=== PATIENT | male | born 1965 | race Two or more races ===

== ENCOUNTER 2020-12-09 08:05 | Outpatient (REF) | payer OTHER, SELFPAY ==
[2020-12-09 08:31] LABS: Hematocrit 46.3 % (42-52); Hemoglobin 15.2 g/dl (14.0-18.0); Mean Corpuscular HGB Conc 32.8 g/dl (31.0-36.0); Mean Corpuscular Hemoglobin 26.9 pg (27.0-33.0); Mean Corpuscular Volume 81.8 fL (80-98); Platelet Count 351 X10*3/uL (160-400); Red Blood Count 5.66 X10*6/uL (4.60-5.80); Red Cell Distribution Width 14.6 % (11.0-16.0); White Blood Count 7.7 X10*3/uL (4.8-10.8)
[2020-12-09 08:38] LABS: Estimated Average Glucose 126 mg/dL
[2020-12-09 09:31] LABS: Alanine Aminotransferase 39 U/L (0-40); Alkaline Phosphatase 76 U/L (39-117); Anion Gap 11 (12-20); Aspartate Amino Transferase 23 U/L (5-37); Bilirubin Total 0.7 mg/dL (0.0-1.0); Blood Urea Nitrogen 12 mg/dL (9-16); Carbon Dioxide 25 mmol/L (22-29); Chloride 105 mmol/L (96-108); Cholesterol 110 mg/dL; Estimated Glomerular Filt Rate > 60; Glucose Random 107 mg/dL (60-115); HDL Cholesterol 45 mg/dL; LDL Cholesterol Calculated 56 mg/dl; Potassium 4.2 mmol/L (3.3-5.1); Sodium 137 mmol/L (135-145); Total Protein 7.3 g/dL (6.5-8.0); Triglycerides 48 mg/dL
[2020-12-09 09:54] LABS: Thyroid Stimulating Hormone 2.42 uIU/mL (0.32-4.0)
[2020-12-09 10:26] LABS: T4 Thyroxine 6.3 ug/dL (4.5-12.0)
[2020-12-10 14:45] LABS: Triiodothyronine T3 Total 112 ng/dL (76-181)
== END 2020-12-09 08:06 | disposition home or self-care (01) ==
LOC: HO.LAB 08:05
PROVIDERS: PCP Family Medicine; Visit Provider Family Medicine
DX: E66.9 Obesity, unspecified (principal)
CPT/HCPCS: 36415; 80053; 80061; 82043; 83036; 84436; 84443; 84480; 85027

== ENCOUNTER 2021-12-15 08:08 | Outpatient (REF) | payer OTHER, SELFPAY ==
[2021-12-15 08:31] LABS: MANUAL DIFF FLAG NO
[2021-12-15 09:01] LABS: Basophils Absolute Auto 0.1 X10*3/uL (0.0-0.2); Eosinophils Absolute Auto 0.2 X10*3/uL (0.0-0.4); Eosinophils Percent Auto 3.1 % (0-4); Hematocrit 45.9 % (42.0-52.0); Hemoglobin 14.4 g/dl (14.0-18.0); Imm Gran Abs Auto 0.02 X10*3/uL (0.00-0.03); Imm Gran Pct Auto 0.3 % (0.0-0.4); Lymphocytes Absolute Auto 2.5 X10*3/uL (1.2-4.9); Lymphocytes Percent Auto 37.4 % (20-40); Mean Corpuscular HGB Conc 31.4 g/dl (31.0-36.0); Mean Corpuscular Volume 82.9 fL (80.0-98.0); Mean Platelet Volume 10.5 fL (9.4-12.4); Monocytes Absolute Auto 0.8 X10*3/uL (0.1-1.2); Monocytes Percent Auto 11.5 % (2-11); Neutrophils Absolute Auto 3.2 x10*3/uL (2.0-8.3); Neutrophils Percent Auto 46.7 % (45-73); Platelet Count 334 X10*3/uL (160-400); Red Blood Count 5.54 X10*6/uL (4.60-5.80); Red Cell Distribution Width 14.3 % (11.0-16.0); White Blood Count 6.8 X10*3/uL (4.8-10.8)
[2021-12-15 09:07] LABS: Estimated Average Glucose 126 mg/dL; Hemoglobin A1C 148.8163 umol/L
[2021-12-15 09:30] LABS: Alanine Aminotransferase 44 U/L (0-40); Albumin Level 4.1 g/dL (3.5-5.0); Alkaline Phosphatase 80 U/L (39-117); Anion Gap 12 (12-20); Aspartate Amino Transferase 25 U/L (5-37); Bilirubin Total 0.6 mg/dL (0.0-1.0); Blood Urea Nitrogen 10 mg/dL (9-16); Calcium 9.9 mg/dL (8.4-10.2); Carbon Dioxide 26 mmol/L (22-29); Chloride 108 mmol/L (96-108); Cholesterol 108 mg/dL; Estimated Glomerular Filt Rate > 60; Glucose Random 102 mg/dL (60-115); HDL Cholesterol 47 mg/dL; LDL Cholesterol Calculated 54 mg/dl; Potassium 4.4 mmol/L (3.3-5.1); Sodium 142 mmol/L (135-145); Total Protein 7.1 g/dL (6.5-8.0); Triglycerides 36 mg/dL
[2021-12-15 09:51] LABS: Thyroid Stimulating Hormone 2.21 uIU/mL (0.32-4.0)
[2021-12-15 10:21] LABS: Vitamin D 25-OH Total 33.3 ng/mL (>30)
== END 2021-12-15 08:09 | disposition home or self-care (01) ==
LOC: HO.LAB 08:08
PROVIDERS: PCP Family Medicine; Visit Provider Family Medicine
DX: E66.09 Other obesity due to excess calories (principal)
CPT/HCPCS: 36415; 80053; 80061; 82306; 83036; 84443; 85025

== ENCOUNTER 2022-02-21 12:11 | Emergency (ER) | payer OTHER, SELFPAY ==
--- NOTE | ~2022-02-21 | XR_ITS ---
EXAMINATION: XR SOFT TISSUE NECK CLINICAL INDICATION: Throat pain COMPARISON: None TECHNIQUE: 2 views of the soft tissue neck were obtained. FINDINGS: Soft tissue films of the neck demonstrate a normal larynx, pharynx and upper trachea. No soft tissue swelling or opaque foreign body is demonstrated. XR/XR soft tissue neck IMPRESSION: Unremarkable soft tissue neck examination.
[2022-02-21 14:18] VITALS: BP 126/95; PULSE 91; RESP 18; TEMP 36.6; O2SAT 98; BMI 31.8
--- NOTE | 2022-02-21 14:26 | ED.GENADULT ---
HPI - General Adult General Source: patient <LLOYD Myers - Last Filed: 02/21/22 16:09> Mode of arrival: ambulatory <LLOYD Myers - Last Filed: 02/21/22 16:09> Limitations: no limitations <LLOYD Myers - Last Filed: 02/21/22 16:09> History of Present Illness HPI narrative: 56 years old male is here today complained of upper back and bilateral neck pain. Patient states that pain started yesterday. Patient does not remember sustaining any injury. She has taking ibuprofen for pain however he states that it is not helpful. Patient states that he was unable to sleep at night due to pain. Patient reports he has some nasal congestion which has resolved. Otherwise he denies any headaches, dizziness, recent falls or trauma, changes in vision, sore throat, trouble swallowing or breathing, chest pain or shortness of breath, paresthesias, palpitations, focal weakness or any general weakness, nausea/vomiting/diarrhea constipation, black or bloody stools, abdominal pain, back pain, flank pain, dysuria, hematuria, abnormal penile discharge, urinary bowel incontinence or retention, saddle anesthesias, history of cancer, history of IV drug use, recent travel or sick contacts or any other symptoms complaints or concerns at this time. <LLOYD Myers - Last Filed: 02/21/22 16:09> MD complaint: Neck pain and upper back pain <LLOYD Myers - Last Filed: 02/21/22 16:09> Onset (ago): day(s) (Since yesterday) <LLOYD Myers - Last Filed: 02/21/22 16:09> Related Data Home medications: Previous Rx's Medication Instructions Recorded cyclobenzaprine 10 mg tablet 10 mg PO Q8H #14 tabs 02/21/22 ketorolac 10 mg tablet 10 mg PO Q8H #14 tabs 02/21/22 oxycodone 5 mg tablet 5 mg PO Q6H PRN pain #14 tabs 02/21/22 <ROQUE Sarmiento - Last Filed: 02/27/22 20:41> Allergies/adverse reactions: Allergies Allergy/AdvReac Type Severity Reaction Status Date / Time No Known Allergies Allergy Verified 08/31/21 09:38 none Allergy Unknown Unknown Uncoded 08/31/21 09:38 <ROQUE Sarmiento - Last Filed: 02/27/22 20:41> Review of Systems Review of Systems: Constitutional : No trauma, No Weight loss, No Fever, No Chills, ENT/Mouth : No Hearing loss, No Ear Pain, No Nasal Congestion, No Sinus Pain, No Hoarseness, No sore throat, No Rhinorrhea, No Swallowing Difficulty Cardiovascular : No Chest Pain, No SOB Respiratory : No Cough, No Dyspnea Gastrointestinal : No Nausea, No Vomiting, No Diarrhea, No abdominal Pain, No Hematochezia, No Melena Genitourinary : No Dysuria, No Urinary Frequency, No Hematuria, No Urinary or Bowel Incontinence/retention Musculoskeletal : + Neck pain, + Back pain, No joint stiffness, No joint swelling Skin : No Skin Lesions, No rash or signs of infection Neuro : nO Tingling to b/l arms/legs, No Weakness, No radiation, No Numbness, No headache, no loss of bowel or bladder incontinence, no saddle anesthesia Denies history of IV drug usage. <LLOYD Myers - Last Filed: 02/21/22 16:09> Yes all other systems are reviewed and are negative <LLOYD Myers - Last Filed: 02/21/22 16:09> [facility] Past Medical History Attestation statement: The following information was validated with the patient. <LLOYD Myers - Last Filed: 02/21/22 16:09> Source: old records reviewed and nursing notes reviewed <LLOYD Myers - Last Filed: 02/21/22 16:09> Social History Social History: Social History Advance Directives: No Advance Directives Information Provided: Yes <ROQUE Sarmiento - Last Filed: 02/27/22 20:41> Physical Exam ED Vital Signs: Vital Signs - 24 hr 02/21/22 14:18 Temperature 98 F Pulse Rate 91 Respiratory Rate 18 Blood Pressure 126/95 H Pulse Oximetry 98 Oxygen Delivery Method Room Air BMI result Body Mass Index 31.8 <ROQUE Sarmiento - Last Filed: 02/27/22 20:41> Vital Signs - 24 hr 02/21/22 14:18 Temperature 98 F Pulse Rate 91 Respiratory Rate 18 Blood Pressure 126/95 H Pulse Oximetry 98 Oxygen Delivery Method Room Air BMI result Body Mass Index 31.8 Vital signs are all within normal limits. <LLOYD Myers - Last Filed: 02/21/22 16:09> Appearance: Alert. Oriented X3. No acute distress. Head: Normal external exam. Normocephalic. Atraumatic. Eyes: PERRLA. EOMI. Conjunctiva and sclera normal. Eyelids normal. ENT: Pharynx normal. Uvula midline. Moist mucous membranes. No trismus noted. No drooling noted. No muffled voice noted. Neck: Normal inspection. Neck supple. FROM. No adenopathy. Thyroid Normal. Trachea midline. No meningeal signs. No neck mass noted. Tender to palpation of bilateral paracervical musculature and mid cervical tenderness. No step-offs or deformities noted. Patient neuro intact bilaterally and distally on all 4 extremities. Reflexes intact bilaterally and distally in all 4 extremities. No rashes/lesion/induration/fluctuance or signs of infection noted. No edema noted. CVS: Normal heart rate and rhythm. Heart sound normal. No murmurs noted. Pulses normal throughout. Respiratory: No respiratory distress. Painless inspiration. Breath sounds normal. No wheezes/rales/rhonchi noted. Chest nontender. No accessory muscle usage noted or decreased air movement noted. Back: Full range of motion noted. No obvious deformities, or edema. Full ROM in back and lower extremities. Skin: Skin warm and dry. Normal skin color. Normal skin turgor. No rashes/lesions/lacerations noted. Extremities: Extremities exhibit normal range of motion. Extremities nontender. Neuro: Oriented X 3. No motor deficit. No sensory deficit. Reflexes normal. Normal steady gait. <LLOYD Myers - Last Filed: 02/21/22 16:09> Course Course Course Narrative: RME 56 years old male is here today complained of upper back and bilateral neck pain. Patient states that pain started yesterday. Patient does not remember sustaining any injury. She has taking ibuprofen for pain however he states that it is not helpful. Patient states that he was unable to sleep at night due to pain. Patient denies any numbness to his bilateral upper extremities. Will do x-ray soft tissue and neck. Patient can be medicated with cyclobenzaprine. <ROQUE Sarmiento - Last Filed: 02/27/22 20:41> RME 56 years old male is here today complained of upper back and bilateral neck pain. Patient states that pain started yesterday. Patient does not remember sustaining any injury. She has taking ibuprofen for pain however he states that it is not helpful. Patient states that he was unable to sleep at night due to pain. Patient denies any numbness to his bilateral upper extremities. Will do x-ray soft tissue and neck. Patient can be medicated with cyclobenzaprine. <LLOYD Myers - Last Filed: 02/21/22 16:09> Reevaluation(s) Reevaluation #1: Pt c likely muscular pain, but could be herniated disc. Neuro exam shows no deficits. Not c/w vascular etiology, perivertebral / other soft tissue neck / airway infection, or spinal fx / process. Patient negative for COVID/RSV/flu. Cervical spine x-ray negative for any acute processes. Therefore at this time patient most likely muscular skeletal pain. Will DC home with symptomatic treatment instructions return if any new or worsening symptoms to follow up with primary care provider. Patient understands agrees with this plan. <LLOYD Myers - Last Filed: 02/21/22 16:09> Time: 16:05 <LLOYD Myers - Last Filed: 02/21/22 16:09> Medications Administered Discontinued Medications Generic Name Dose Route Start Last Admin Trade Name Randy PRN Reason Stop Dose Admin Cyclobenzaprine HCl 10 mg 02/21/22 14:27 02/21/22 15:03 Cyclobenzaprine Hcl 10 Mg Tablet PO 02/21/22 14:28 10 mg ONCE ONE Administration Ketorolac Tromethamine 60 mg 02/21/22 15:26 02/21/22 15:41 Ketorolac Tromethamine 60 Mg/2 Ml Vial IM 02/21/22 15:27 60 mg ONCE ONE Administration Lidocaine 1 patch 02/21/22 15:26 02/21/22 15:39 Lidocaine 4 % Patch Adh..Patch TRANSDERMA 02/21/22 15:27 1 patch ONCE ONE Administration Protocol <ROQUE Sarmiento - Last Filed: 02/27/22 20:41> Medications Administered Discontinued Medications Generic Name Dose Route Start Last Admin Trade Name Randy PRN Reason Stop Dose Admin Cyclobenzaprine HCl 10 mg 02/21/22 14:27 02/21/22 15:03 Cyclobenzaprine Hcl 10 Mg Tablet PO 02/21/22 14:28 10 mg ONCE ONE Administration Ketorolac Tromethamine 60 mg 02/21/22 15:26 02/21/22 15:41 Ketorolac Tromethamine 60 Mg/2 Ml Vial IM 02/21/22 15:27 60 mg ONCE ONE Administration Lidocaine 1 patch 02/21/22 15:26 02/21/22 15:39 Lidocaine 4 % Patch Adh..Patch TRANSDERMA 02/21/22 15:27 1 patch ONCE ONE Administration Protocol <LLOYD Myers - Last Filed: 02/21/22 16:09> Medical Decision Making Lab Data MDM Lab Attestation statement: I reviewed the patient's lab results. <LLOYD Myers Last Filed: 02/21/22 16:09> Labs: Lab Results 02/21/22 Range/Units 14:25 Influenza Type A (PCR) NEGATIVE (Negative) Influenza Type B (PCR) NEGATIVE (Negative) RSV RNA Qual (PCR) NEGATIVE (Negative) SARS-CoV-2 RNA (RT-PCR) NEGATIVE (Negative) <Sagrario Taylor [employer] - Last Filed: 02/27/22 20:41> Lab Results 02/21/22 Range/Units 14:25 Influenza Type A (PCR) NEGATIVE (Negative) Influenza Type B (PCR) NEGATIVE (Negative) RSV RNA Qual (PCR) NEGATIVE (Negative) SARS-CoV-2 RNA (RT-PCR) NEGATIVE (Negative) <LLOYD Myers Last Filed: 02/21/22 16:09> Independent Interpretation Interpretation: Soft tissue neck x-ray FINDINGS: Soft tissue films of the neck demonstrate a normal larynx, pharynx and upper trachea. No soft tissue swelling or opaque foreign body is demonstrated. XR/XR soft tissue neck IMPRESSION: Unremarkable soft tissue neck examination. <LLOYD Myers Last Filed: 02/21/22 16:09> Radiology Impression Discussion of test interpretation with radiology: I have reviewed the radiologist's reading. <LLOYD Myers - Last Filed: 02/21/22 16:09> Discharge Plan Discharge Clinical Impression: Muscle spasm <JESSE SarmientoP-BC - Last Filed: 02/27/22 20:41> Patient Disposition: Home, Self-Care <Sagrario Taylor ANESTHESIOLOGIST/PHYSICIAN-BC - Last Filed: 02/27/22 20:41> Instructions: Muscle Spasm (ED) <Sagrario Taylor ANESTHESIOLOGIST/PHYSICIAN-BC - Last Filed: 02/27/22 20:41> Prescriptions: New ketorolac 10 mg tablet 10 mg PO Q8H Qty: 14 0RF cyclobenzaprine 10 mg tablet 10 mg PO Q8H Qty: 14 0RF oxycodone 5 mg tablet 5 mg PO Q6H PRN (Reason: pain) Qty: 14 0RF Rx Instructions: Partial Fill upon patient request. <Sagrario Taylor ANESTHESIOLOGIST/PHYSICIAN-BC - Last Filed: 02/27/22 20:41> Referrals: Claire Emanuel MD [Primary Care Provider] - 3 days <Sagrario Taylor ANESTHESIOLOGIST/PHYSICIAN-BC - Last Filed: 02/27/22 20:41> Stand Alone Forms: Work/School Release <JESSE SarmientoP-BC - Last Filed: 02/27/22 20:41> Interventions: ED Discharge Assessment Last Done: 02/21/22 16:26 <Sagrario Taylor ANESTHESIOLOGIST/PHYSICIAN-BC - Last Filed: 02/27/22 20:41> Discharge Date/Time: 02/21/22 16:27 <Sagrario Taylor ANESTHESIOLOGIST/PHYSICIAN-BC - Last Filed: 02/27/22 20:41>
[2022-02-21] MEDS: Cyclobenzaprine HCl 10 MG TABLET PO (15:03)
--- NOTE | 2022-02-21 15:04 | PC.NURSE ---
pt a&ox3, vss, pt reporting 10/10 pain, pain is in neck and joints, medicated per provider order. no new orders at this time.
[2022-02-21 15:11] LABS: Influenza A PCR NEGATIVE (Negative); Influenza B PCR NEGATIVE (Negative); Resp Syncy Virus RNA Qual PCR NEGATIVE (Negative); SARS COV2 PCR INHOUSE NEGATIVE (Negative)
[2022-02-21] MEDS: Lidocaine 4 % Patch ADH..PATCH 1 PATCH TRANSDERMA (15:39)
[2022-02-21] MEDS: Ketorolac Tromethamine 60 MG/2 ML VIAL IM (15:41)
== END 2022-02-21 16:27 | disposition home or self-care (01) ==
PROVIDERS: Nurse Practitioner Family; Emergency Provider Emergency Medicine Emergency Medical Services; PCP Family Medicine
DX: M62.838 Other muscle spasm (principal); M54.2 Cervicalgia; Z20.822 Contact with and (suspected) exposure to COVID-19; Z79.899 Other long term (current) drug therapy
CPT/HCPCS: 0241U; 70360; 96372; 99283; 99284; J1885

== ENCOUNTER → 2022-04-05 14:41 | Outpatient (BNVA) | payer OTHER, SELFPAY | PROVIDERS: PCP Family Medicine; Visit Provider Physician Assistant | DX: S80.02XA Contusion of left knee, initial encounter (principal); W18.09XA Striking against other object with subsequent fall, initial encounter | CPT/HCPCS: 73564; 99204 ==

== ENCOUNTER 2022-08-24 08:27 | Outpatient (REF) | payer OTHER, SELFPAY | END 2022-08-24 08:28 | disposition home or self-care (01) | LOC: HO.LAB 08:27 | PROVIDERS: Visit Provider Urology | DX: Z12.5 Encounter for screening for malignant neoplasm of prostate (principal); N13.8 Other obstructive and reflux uropathy; N40.1 Benign prostatic hyperplasia with lower urinary tract symptoms; N41.9 Inflammatory disease of prostate, unspecified | CPT/HCPCS: 36415; 84153 ==

== ENCOUNTER 2022-08-30 15:18 | Outpatient (AMB) | payer OTHER, SELFPAY ==
--- NOTE | 2022-08-30 15:43 | MHC.OFFVIS ---
Intake Intake Visit Reasons: 1Y PSA(set) Intake Note: Patient presents for follow up PSA Urology Medications: none Blood Thinner: none Quantometer Operator Required: No Accompanied by: Self / Same As Patient Allergies No Known Allergies Allergy (Verified 08/30/22 15:47) none Allergy (Unknown, Uncoded 08/30/22 15:47) Unknown HPI HPI Comments History of Present Illness Details Cali is a pleasant male. He is a patient of Dr. Emanuel. He seen for the following urologic conditions - prostatitis Prostatitis Prior episodes prostatitis Change diet and has been stable LALY normal - Had prior ED that responded to weight change PSA 09/08 2.1 Will check PSA in 12 months Review of Systems Const Denies chills and Denies fever(s) Card Reports no additional complaints and Denies syncope Resp Denies cough GI Denies abdominal pain and Denies heartburn Reports as per HPI and Denies change in libido Neuro Denies syncope Psych Denies change in libido Endo Denies change in libido Physical Exam Const General: cooperative, healthy appearing, comfortable and no acute distress Orientation/consciousness: patient oriented x3 HEENT Face and sinus: Yes normal facial exam Mouth: moist mucous membranes Neck Neck: Yes normal visual inspection, Yes full ROM and Yes trachea midline Chest Chest palpation & inspection: normal inspection of the chest Resp Effort & Inspection: normal respiratory effort, able to speak in complete sentences and no respiratory distress GI Inspection: Yes normal to inspection Back/Spine/Pelvis Cervical Spine: normal cervical lordosis Thoracic/Lumbar Spine: thoracic and lumbar spine normal to inspection Skin General skin exam: no rashes or lesions noted Neuro General: patient oriented x3, gait normal, tone normal and moves all extremities Extrem General: Yes normal to inspection and Yes capillary refill normal Assessment & Plan Assessment & Plan (1) Prostatitis: Code(s): N41.9 - Inflammatory disease of prostate, unspecified Plan Continue yearly review Orders: Orders Prostate Specific Antigen 364 Days N41.9 - Inflammatory disease of prostate, unspecified Patient Instructions: Imaging studies, laboratory and physical exam results were discussed and reviewed in detail. No major barriers to patient understanding were identified. An opportunity to ask questions regarding the treatment plan was provided. All questions were answered. The patient expressed understanding and agreement with the above treatment plan. The patient is aware they should contact our office by phone for worsening of their current condition or the appearance of new urologic symptoms. Compliance is encouraged with any medications and followup testing that is ordered. It is a privilege to participate in the urologic care of your patient. If you have any questions or concerns regarding treatment for the above conditions, or other urologic issues, please do not hesitate to contact me. The office telephone contact is [phone]. This note is constructed using voice recognition software. While every effort has been made to ensure accuracy medical record clerk errors may have been included. Yours sincerely, Dr Gary Olguin MD, [facility] - Urology Providers of Expert, Compassionate Care for the Genitourinary System Coding Level of Care Code Est Pt Level 3 (23423) Diagnoses Prostatitis N41.9
== END 2022-08-30 16:02 | disposition home or self-care (01) ==
PROVIDERS: Visit Provider Urology
DX: N41.9 Inflammatory disease of prostate, unspecified (principal)
CPT/HCPCS: 99213

== ENCOUNTER → 2022-08-30 15:18 | Outpatient (BNVA) | payer OTHER, SELFPAY | PROVIDERS: Visit Provider Urology ==

== ENCOUNTER 2022-10-14 15:24 | Outpatient (REF) | payer OTHER, SELFPAY ==
[2022-10-14 17:34] LABS: MANUAL DIFF FLAG NO
[2022-10-14 17:44] LABS: Basophils Absolute Auto 0.1 X10*3/uL (0.0-0.2); Eosinophils Absolute Auto 0.3 X10*3/uL (0.0-0.4); Eosinophils Percent Auto 3.5 % (0-4); Hematocrit 44.6 % (42.0-52.0); Hemoglobin 14.1 g/dl (14.0-18.0); Imm Gran Abs Auto 0.02 X10*3/uL (0.00-0.03); Imm Gran Pct Auto 0.3 % (0.0-0.4); Lymphocytes Absolute Auto 2.4 X10*3/uL (1.2-4.9); Lymphocytes Percent Auto 33.4 % (20-40); Mean Corpuscular HGB Conc 31.6 g/dl (31.0-36.0); Mean Corpuscular Hemoglobin 26.4 pg (27.0-33.0); Mean Corpuscular Volume 83.4 fL (80.0-98.0); Mean Platelet Volume 11.1 fL (9.4-12.4); Monocytes Absolute Auto 0.7 X10*3/uL (0.1-1.2); Monocytes Percent Auto 9.6 % (2-11); Neutrophils Absolute Auto 3.8 x10*3/uL (2.0-8.3); Neutrophils Percent Auto 52.2 % (45-73); Platelet Count 333 X10*3/uL (160-400); Red Blood Count 5.35 X10*6/uL (4.60-5.80); Red Cell Distribution Width 14.7 % (11.0-16.0); White Blood Count 7.2 X10*3/uL (4.8-10.8)
[2022-10-14 18:10] LABS: Alanine Aminotransferase 48 U/L (0-40); Alkaline Phosphatase 69 U/L (39-117); Anion Gap 11 (12-20); Aspartate Amino Transferase 23 U/L (5-37); Bilirubin Direct 0.2 mg/dL (0.0-0.5); Bilirubin Total 0.5 mg/dL (0.0-1.0); Blood Urea Nitrogen 9 mg/dL (9-16); Carbon Dioxide 23 mmol/L (22-29); Chloride 109 mmol/L (96-108); Estimated Glomerular Filt Rate > 60; Glucose Random 99 mg/dL (60-115); Potassium 3.9 mmol/L (3.3-5.1); Sodium 139 mmol/L (135-145)
== END 2022-10-14 15:25 | disposition home or self-care (01) ==
LOC: HO.CHCLDS 15:24
PROVIDERS: Visit Provider Internal Medicine
DX: Z87.19 Personal history of other diseases of the digestive system (principal)
CPT/HCPCS: 36415; 80048; 80076; 85025

== ENCOUNTER 2022-10-17 15:12 | Outpatient (REF) | payer OTHER, SELFPAY ==
[2022-10-17 17:13] LABS: Alanine Aminotransferase 47 U/L (0-40); Albumin Level 4.2 g/dL (3.5-5.0); Alkaline Phosphatase 72 U/L (39-117); Aspartate Amino Transferase 24 U/L (5-37); Bilirubin Direct 0.2 mg/dL (0.0-0.5); Bilirubin Total 0.6 mg/dL (0.0-1.0); Total Protein 7.5 g/dL (6.5-8.0)
== END 2022-10-17 15:13 | disposition home or self-care (01) ==
LOC: HO.HHCL 15:12
PROVIDERS: Visit Provider Internal Medicine
DX: R10.11 Right upper quadrant pain (principal); R79.89 Other specified abnormal findings of blood chemistry
CPT/HCPCS: 36415; 80076

== ENCOUNTER 2022-10-22 15:24 | Outpatient (REF) | payer OTHER, SELFPAY ==
[2022-10-23 04:00] LABS: HBS Num1 7.85 mIU/mL (0-7.99); Hepatitis B Core Antibody Nonreactive (Nonreactive); ~Hepatitis B Surface Antibody NONREACTIVE (Nonreactive)
[2022-10-23 04:03] LABS: Hepatitis A Antibody IgM 0.32 Index (0-0.79); ~Hepatitis A Antibody IgM Nonreactive (Nonreactive)
[2022-10-23 04:04] LABS: ~HepC Num1 0.16 S/CO (0.00-0.79); ~Hepatitis C Antibody Nonreactive (Nonreactive)
== END 2022-10-22 15:25 | disposition home or self-care (01) ==
LOC: HO.CHCLDS 15:24
PROVIDERS: Visit Provider Internal Medicine
DX: R10.11 Right upper quadrant pain (principal)
CPT/HCPCS: 36415; 86704; 86706; 86709; 86803

== ENCOUNTER 2023-01-16 03:37 | Emergency (ER) | payer OTHER, SELFPAY ==
--- NOTE | ~2023-01-16 | XR_ITS ---
EXAMINATION: XR KNEE, LEFT CLINICAL INFORMATION: Swelling, pain COMPARISON: 04/05/2022 TECHNIQUE: Four views of the left knee. FINDINGS: Osseous alignment is anatomic. There is slight narrowing of the medial joint space. Chondrocalcinosis is noted. Mild posterior patellar spurring. No acute fracture is seen. Small to moderate joint effusion is present. XR/XR knee LT 4V IMPRESSION: Small to moderate joint effusion. No acute osseous findings.
[2023-01-16 03:53] VITALS: BP 113/75; PULSE 90; RESP 20; TEMP 36.8; O2SAT 99
[2023-01-16 04:07] LABS: Hematocrit 42.6 % (42.0-52.0); Mean Corpuscular HGB Conc 32.9 g/dl (31.0-36.0); Mean Corpuscular Hemoglobin 26.9 pg (27.0-33.0); Mean Corpuscular Volume 81.8 fL (80.0-98.0); Mean Platelet Volume 10.1 fL (9.4-12.4); Platelet Count 396 X10*3/uL (160-400); Red Blood Count 5.21 X10*6/uL (4.60-5.80); Red Cell Distribution Width 14.2 % (11.0-16.0); White Blood Count 12.8 X10*3/uL (4.8-10.8)
[2023-01-16 04:21] LABS: Alanine Aminotransferase 29 U/L (0-40); Albumin Level 3.9 g/dL (3.5-5.0); Alkaline Phosphatase 69 U/L (39-117); Anion Gap 12 (12-20); Aspartate Amino Transferase 17 U/L (5-37); Bilirubin Total 0.7 mg/dL (0.0-1.0); Blood Urea Nitrogen 9 mg/dL (9-16); Calcium 9.6 mg/dL (8.4-10.2); Carbon Dioxide 24 mmol/L (22-29); Chloride 106 mmol/L (96-108); Creatinine Clr Calc Pharmacy 114.9; Estimated Glomerular Filt Rate > 60; Glucose Random 127 mg/dL (60-115); Potassium 3.7 mmol/L (3.3-5.1); Sodium 138 mmol/L (135-145); Total Protein 7.2 g/dL (6.5-8.0)
[2023-01-16 05:35] VITALS: BP 126/80; PULSE 81; RESP 14; TEMP 37; O2SAT 98
[2023-01-16 06:03] LABS: Uric Acid 4.5 mg/dL (3.4-7.0)
--- NOTE | 2023-01-16 06:37 | ED_ITS ---
HPI - General Adult General Chief complaint: General Medical Stated complaint: swollen knee Time Seen by Provider: 01/16/23 06:35 Source: patient Mode of arrival: wheelchair Limitations: no limitations History of Present Illness HPI narrative: Patient is a 57 year old assigned male at with a history of gout presenting to the emergency department today with left knee pain. Patient states that he has a history of gout and often gets it in his left knee. Patient states that he is not on daily medications for his gout. Patient denies any dizziness, lightheadedness, abdominal pain, nausea, vomiting, fever, chills, blurry vision, double vision, loss of vision, chest pain, difficulty breathing, shortness of breath, back pain, night sweats, pain with urination, increased urinary frequency, increased urinary urgency, blood in his urine or stool, syncope or a near syncopal episode, recent trauma or falls, bowel incontinence, bladder incontinence, bowel retention, bladder retention, or any other complaints at this time. Onset (ago): day(s) Location: left and lower extremity Severity: mild Severity scale (1-10): 4 Quality: aching Pain Consistency: constant Relieving factors: immobilization Exacerbating factors: movement Associated symptoms: denies other symptoms Treatments prior to arrival: none Related Data Previous Rx's Medication Instructions Recorded cyclobenzaprine 10 mg tablet 10 mg PO Q8H #14 tabs 02/21/22 ketorolac 10 mg tablet 10 mg PO Q8H #14 tabs 02/21/22 oxycodone 5 mg tablet 5 mg PO Q6H PRN pain #14 tabs 02/21/22 ketorolac 10 mg tablet 10 mg PO TID PRN pain 5 days #10 01/16/23 tabs prednisone 20 mg tablet 20 mg PO DAILY 7 days #7 tabs 01/16/23 Allergies Allergy/AdvReac Type Severity Reaction Status Date / Time No Known Allergies Allergy Verified 08/30/22 15:47 none Allergy Unknown Unknown Uncoded 08/30/22 15:47 Review of Systems 2 Constitutional: Constitutional: Reports no additional constitutional complaints, Denies chills, Denies fever(s) and Denies night sweats Eyes: Eyes: Reports no additional eye complaints, Denies blurry vision, Denies change in vision, Denies diplopia, Denies eye discharge, Denies loss of vision and Denies eye pain ENT: Denies dizziness Cardiovascular: Cardiovascular: Reports no additional cardiovascular complaints, Denies chest pain, Denies lightheadedness, Denies Loss of Consciousness and Denies dyspnea Respiratory: Respiratory: Reports no additional respiratory complaints and Denies dyspnea Gastrointestinal: Gastrointestinal: Reports no additional gastrointestinal complaints, Denies abdominal pain, Denies melena, Denies hematochezia, Denies change in bowel habits and Denies change in stool character Genitourinary: Genitourinary: Reports no additional male genitourinary complaints, Denies hematuria, Denies oliguria, Denies difficulty urinating, Denies dysuria, Denies urinary frequency, Denies urinary hesitancy, Denies urinary incontinence and Denies urinary urgency Musculoskeletal: Musculoskeletal: Reports no additional musculoskeletal complaints, Denies numbness and Denies tingling Comments: left knee pain Neurologic: Denies dizziness, Denies loss of vision, Denies numbness and Denies tingling Psychiatric: Psychiatric: Reports no additional psychiatric complaints Endocrine: Endocrine: Reports no additional endocrine complaints Hematologic/Lymphatic: Hematologic/Lymphatic: Reports no additional hematologic/lymphatic complaints Allergic/Immunologic: Allergic/Immunologic: Reports no additional allergic/immunologic complaints [facility] Past Medical History Attestation statement: The following information was validated with the patient. Source: old records reviewed and nursing notes reviewed Social History Social History Smoked in Last 30 Days: No Use of substances other than those prescribed or required for medical reasons: No Advance Directives: No Advance Directives Information Provided: No Physical Exam ED Vital Signs: Vital Signs - 24 hr 01/16/23 03:53 01/16/23 05:35 Temperature 98.2 F 98.6 F Pulse Rate 90 81 Respiratory Rate 20 14 Blood Pressure 113/75 126/80 Pulse Oximetry 99 98 Oxygen Delivery Method Room Air Room Air BMI result Body Mass Index 30.0 Const General: cooperative, no acute distress, alert and awake Nutritional Appearance: well nourished Orientation/consciousness: patient oriented x3 Limitations: no limitations HENMT Head: Yes normal to inspection and Yes atraumatic Ears: hearing grossly normal bilaterally and external ears normal General nose exam: Normal external nose present, no nasal discharge noted and no epistaxis Face and sinus: Yes normal facial exam, No abrasion and No laceration Mouth: Normal oral and palatal mucosa present, no drooling and no muffled voice Eyes General: appearance normal, both eyes and all related structures Periorbital: periorbital findings normal Eyelids: Yes eyelids normal Conjunctivae: conjunctivae normal Pupils: Equal, round and reactive pupils present EOM: EOMs intact bilaterally Neck Neck: Yes normal visual inspection, Yes full ROM and Yes no lymphadenopathy Chest Chest palpation & inspection: normal inspection of the chest Resp Effort & Inspection: normal respiratory effort and able to speak in complete sentences GI Inspection: Yes normal to inspection Neuro General: patient oriented x3 and moves all extremities Cranial nerves: Yes Equal, round and reactive pupils present Cognition (Neuro): normal cognition Motor exam (neuro): 5/5 motor strength present throughout Sensory Exam: Normal double simultaneous stimulation for sensation Coordination: [id number] test normal Extrem Other: minimal swelling present to the left knee with mild warmth, no erythema General: Yes full ROM and Yes capillary refill normal Psych Appearance: grossly normal Mental Status: mental status grossly normal Affect: normal affect Attitude: cooperative Thought process: Normal thought process present Thought content: Normal thought content present Insight: Good insight present (Psych) Medications Administered Discontinued Medications Generic Name Dose Route Start Last Admin Trade Name Freq PRN Reason Stop Dose Admin Ketorolac Tromethamine 15 mg 01/16/23 06:48 01/16/23 07:02 Ketorolac Tromethamine 15 Mg/Ml Vial IM 01/16/23 06:49 15 mg ONCE ONE Administration Methylprednisolone Sodium Succinate 60 mg 01/16/23 06:48 01/16/23 07:02 Methylprednisolone Sod Succ 125 Mg/2 Ml Vial IM 01/16/23 06:49 60 mg ONCE ONE Administration Procedures Orthopedic Splinting/Casting Injury #1: Side: left Upper Extremity Immobilizer: Bashir wrap Lower Extremity Injury Location: knee Medical Decision Making Medical Decision Making MDM Narrative: Patient is a 57 year old assigned male at with a history of gout presenting to the emergency department today with left knee pain. Patient's physical exam was as noted in the physical exam portion of this note and is most consistent with an acute gout flare. Patient's ROM is intact. Patient's blood work showed a mild elevation of his WBC count at 12.8 but is otherwise unremarkable. This elevation is likely secondary to a stress reaction / gout flare. Patient's left knee x-ray showed an effusion but otherwise no acute process. I explained my physical exam findings as well as all test results to the patient. I answered all questions asked by the patient. Patient received an BASHIR wrap to the left knee, IM Toradol, and IM Solu-medrol which he stated helped his symptoms significantly. Patient's PMS was intact prior to and after BASHIR wrap placement. I stressed the importance of the patient taking his medication as prescribed. I stressed the importance of the patient following up with his primary care provider. I stressed the importance of the patient returning to the emergency department immediately if his symptoms were to worsen or if he were to develop any dizziness, shortness of breath, difficulty breathing, chest pain, blurry vision, loss of vision, nausea, vomiting, abdominal pain, fever, chills, back pain, or any other complaints. Patient verbalized agreement and understanding with this treatment plan and discharge. Differential Diagnosis Differential Diagnoses: The differential diagnosis associated with the presentation includes Left knee pain Gout Effusion Admission/Observation Consideration of admission/observation: Escalation of care including admission/observation considered Patient would have been admitted to the hospital had his work up had any findings where hospital admission was appropriate and his clinical presentation warranted hospital admission. Lab Data [facility] Lab Attestation statement: I reviewed the patient's lab results. My interpretation of these results are in the [facility] Rationale portion of this note. 01/16/23 03:58 01/16/23 03:58 Labs: Lab Results 01/16/23 Range/Units 03:58 WBC 12.8 H (4.8-10.8) X10*3/uL RBC 5.21 (4.60-5.80) X10*6/uL Hgb 14.0 (14.0-18.0) g/dl Hct 42.6 (42.0-52.0) % MCV 81.8 (80.0-98.0) fL MCH 26.9 L (27.0-33.0) pg MCHC 32.9 (31.0-36.0) g/dl RDW 14.2 (11.0-16.0) % Plt Count 396 (160-400) X10*3/uL MPV 10.1 (9.4-12.4) fL Absolute Nucleated RBC 0.000 (0.0-0.012) X10*3/uL Nucleated RBC % (auto) 0.0 (0.0-0.2) /100WBC Sodium 138 (135-145) mmol/L Potassium 3.7 (3.3-5.1) mmol/L Chloride 106 (96-108) mmol/L Carbon Dioxide 24 (22-29) mmol/L Anion Gap 12 (12-20) BUN 9 (9-16) mg/dL Creatinine 0.77 (0.5-1.4) mg/dL Estim Creat Clear Calc 114.9 Estimated GFR > 60 Random Glucose 127 H (60-115) mg/dL Uric Acid 4.5 (3.4-7.0) mg/dL Calcium 9.6 (8.4-10.2) mg/dL Total Bilirubin 0.7 (0.0-1.0) mg/dL AST 17 (5-37) U/L ALT 29 (0-40) U/L Alkaline Phosphatase 69 (39-117) U/L Total Protein 7.2 (6.5-8.0) g/dL Albumin 3.9 (3.5-5.0) g/dL Independent Interpretation I performed an independent interpretation of an: Plain X-Ray Interpretation: My interpretation is in agreement with the radiologist's impression of this imaging study. - EXAMINATION: XR KNEE, LEFT CLINICAL INFORMATION: Swelling, pain COMPARISON: 04/05/2022 TECHNIQUE: Four views of the left knee. FINDINGS: Osseous alignment is anatomic. There is slight narrowing of the medial joint space. Chondrocalcinosis is noted. Mild posterior patellar spurring. No acute fracture is seen. Small to moderate joint effusion is present. XR/XR knee LT 4V IMPRESSION: Small to moderate joint effusion. No acute osseous findings. Dictated By: Alli Cee MD Signed By: Electronically signed by Alli Cee MD 01/16/23 0616 Radiology Impression Discussion of test interpretation with radiology: I have reviewed the radiologist's reading. Prescription Management I considered prescription management with: Pain Medication (patient prescribed pain medication) Discharge Plan Discharge Clinical Impression: Acute knee pain, Gout attack Patient Disposition: Home, Self-Care Instructions: Low Purine Diet (ED), Gout (ED), Knee Pain (ED) Additional Instructions: Follow up with your primary care provider. Return to the emergency department immediately if your symptoms worsen or if you develop any dizziness, shortness of breath, difficulty breathing, chest pain, blurry vision, loss of vision, nausea, vomiting, abdominal pain, fever, chills, back pain, or any other complaints. Prescriptions: New ketorolac 10 mg tablet 10 mg PO TID PRN (Reason: pain) 5 Days Qty: 10 0RF prednisone 20 mg tablet 20 mg PO DAILY 7 Days Qty: 7 0RF No Action ketorolac 10 mg tablet 10 mg PO Q8H Qty: 14 0RF cyclobenzaprine 10 mg tablet 10 mg PO Q8H Qty: 14 0RF oxycodone 5 mg tablet 5 mg PO Q6H PRN (Reason: pain) Qty: 14 0RF Rx Instructions: Partial Fill upon patient request. Referrals: Claire Emanuel MD [Primary Care Provider] - Stand Alone Forms: Work/School Release Interventions: ED Discharge Assessment Last Done: 01/16/23 07:47 Discharge Date/Time: 01/16/23 07:48 Print Language: Haitian
[2023-01-16] MEDS: Ketorolac Tromethamine 15 MG/ML VIAL IM (07:02)
[2023-01-16] MEDS: methylPREDNISolone Sod Succ 125 MG/2 ML VIAL 60 MG IM (07:02)
== END 2023-01-16 07:48 | disposition home or self-care (01) ==
PROVIDERS: Emergency Provider Emergency Medicine Emergency Medical Services; PCP Family Medicine
DX: M10.062 Idiopathic gout, left knee (principal); M25.462 Effusion, left knee; M25.562 Pain in left knee; Z79.899 Other long term (current) drug therapy
CPT/HCPCS: 36415; 73564; 80053; 84550; 85027; 96372; 99284; J1885; J2930

== ENCOUNTER 2023-01-22 15:05 | Outpatient (AMB) | payer OTHER, SELFPAY ==
--- NOTE | 2023-01-22 15:10 | A.OFFVIS_ITS ---
Intake Vital Signs 3 01/22/23 15:15 Height 5 ft 8 in Weight 202 lb 13.204 oz BMI 30.8 BP 119/81 Blood Pressure Location Lt brachial Position Sitting Pulse 71 Intake Visit Reasons: Colonoscopy Screening Intake Note: Cali presents to in office visit today as a new patient for colonoscopy screening. CC: Patient reports he was found to have a fatty liver. He reports occasional abdominal pain and acid reflux. Denies other GI symptoms today. 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 He is referred by [facility]. His primary ordered Cologuard for colon cancer screening. PMX Obesity-BMI of 33 Transaminitis Knee pain Prostatitis GERD Depression with anxiety Wrist arthritis History of H pylori infection * SURGICAL HISTORY Colonoscopy, 2013-Jose M EGD 2003 and 2017 * ALLERGIES: NKDA * [employer] LABS: Laboratory Tests 11/24/18 12/15/21 10/17/22 Unknown 08:29 15:15 WBC Hct MCV Plt Count Estimated GFR Total Bilirubin Direct Bilirubin 0.2 AST ALT Alkaline Phosphata se TSH 2.21 H. pylori Antigen Detected H Hepatitis A IgM Ab Hep Bs Antibody Hep B Core Total A b Hepatitis C Ab (EI A) 10/22/22 01/16/23 01/16/23 15:29 03:58 03:58 WBC 12.8 H Hct 42.6 MCV Plt Count Estimated GFR > 60 Total Bilirubin 0.7 Direct Bilirubin AST 17 ALT 29 Alkaline Phosphata se 69 TSH H. pylori Antigen Hepatitis A IgM Ab Nonreactive Hep Bs Antibody NONREACTIVE Hep B Core Total A b Nonreactive Hepatitis C Ab (EI A) Nonreactive 01/16/23 03:58 WBC Hct MCV 81.8 Plt Count 396 Estimated GFR Total Bilirubin Direct Bilirubin AST ALT Alkaline Phosphata se TSH H. pylori Antigen Hepatitis A IgM Ab Hep Bs Antibody Hep B Core Total A b Hepatitis C Ab (EI A) Patient seen in 2019 by Jacinto Solomon he CW note is as follows Assessments Treatment1.?H. pyl talha infection The patient tells me that he brought hi s sample an earlie r this week becaus e he thought it w ould be process by now. Is still in process by the lab . His symptoms are quite well resolv ed. He is no longe r taking omeprazol e or any other me dication except fo r a probiotic supp lement over-the-co unter. He finds t his helpful for oc casional bowel irr egularity and dysp epsia. He only has trouble with he eats foods that he knows he should n ot. He has not had a return of the symptoms that prom pted him to seek t reatment. Since he is not having any current active is sues I will call h im once the lab r eturns his stool s ample and the does not hear from me in a week he is to call. If it stil l positive I will re-treat him and a t that time we darlyn meneses schedule him to come back for ret urn visit. Since h is symptoms have r esolved well he do es not need to fo llow-up with us if we confirm eradic ation of the H pyl talha microbe. 2.? Gastroesophageal r eflux disease, eso phagitis presence not specified EGD-2019, [facility] Consent: Indications for the procedure and potential complications including bleeding, perforation, reaction to medications, missed diagnosis and aspiration pneumonia were discussed with the patient and informed consent was obtained. Instrument: Olympus GIF H 180 J mid size upper endoscope Monitoring: Vital signs and clinical assessment, intermittent blood pressure monitoring, continuous EKG monitoring, Pulse oximetry, and Carbon Dioxide monitoring were done throughout the procedure. Procedure: The patient was placed in the left lateral de-cubitus position and pre-procedure medications were administered and a bite block was placed. The endoscope was inserted into the mouth and advanced under direct vision to the third part of duodenum. A careful inspection was made as the upper endoscope was withdrawn including a retroflexed examination of the proximal stomach. Findings and interventions are described below. Findings: Larynx: Mild edema of arytenoid cartilages Esophagus: Tortuous esophagus with increased tertiary contractions without stricture - biopsies obtained from the proximal esophagus to check for EOE. GE junction at 40 cms. Irregular Z line - biopsies obtained to check for Dejesus s. Stomach: Mild gastric erythema. Biopsies were obtained. Grade 2 flap valve on retroflexed examination of the cardia. Duodenum: Normal bulb and descending duodenum Intervention: Biopsies as noted above Impression and Post Procedure Diagnosis: Endoscopy Findings: LARYNX: Changes suggestive of LPRD ESOPHAGUS: Dysphagia likely due to esophageal motility disorder versus EOE STOMACH: gastritis DUODENUM: Normal Plan: Await pathology results Patient has an appointment on 04/14/18 in the GI Clinic with [address] 04/02/18 Received: 04/02/18 0 Submitted by: JOSE RODRIGUEZ MD MATERIAL RECEIVED: 0 A. GASTRIC BX'S B. BX'S DISTAL ESO PHAGUS C. PROXIMAL ESOPHA GWEN BX'S -- DIAGNOSIS A. Stomach, biops ies: Helicobacter pylori gastritis (confirmed with immunohistochemist isma), no evidence o f intestinal metap lasia or dysplasia 0 B. Esophagus, dis shimon, biopsies: In flamed squamogland ular junctional mu cosa with reactive changes, no evidence of int estinal metaplasia or dysplasia. C. Esophagus, pro ximal, biopsies: Esophageal squamou s mucosa with no d iagnostic alteration. Subsequent H pylori stool testing was still positive Patient had been treated by Jacinto Solomon with amoxicillin and Flagyl (wrong regimen!!). TODAY'S VISIT The information is conflicting about the reason for his visit. He says it is because he has daily upper abdominal pain, he does not take any rx medications at this times. He uses oregano oil with some relief. He will have dyspepsia with some foods and even diarrhea, but he is unclear exactly which foods cause this. This is likely r/t his hx of H pylori. He says he has undergone 2 courses of antibiotics, but I only know about one. It appears he has had this since 2013 when he had a procedure with Dr. Salguero and this was his last colonoscopy. This was negative. There is no FHX of crc or polyps. He dislikes prescription medications and likes to eat more whole foods and use natural remedies. He has a recent Cologuard test that was negative and so he does not immanently need a colonoscopy at this time. He denies any rectal bleeding, wt loss or other alarm sx. I spent a great deal of time trying to educate him the H pylori the reason for his ongoing symptoms. I also try to impress upon him the importance of treating this because it is the 1. Cause of stomach ulcers and stomach cancer. I propose we start with an H pylori breath test and then will decide what studies me weight want to add on going forward. The patient is morbidly obese but seems to have poor insight into the impact this also could have on his heartburn as a symptom. However he has had no recent weight loss or gain as his weight tends to fluctuate upper down in a 5 lb range. Return office visit in 6 weeks [facility] Surgical History H/O esophagogastroduodenoscopy H/O colonoscopy Social History Alcohol intake: former Comment: quit more than 20 years ago Patient Tobacco Use Status: Former Tobacco user Review of Systems Const Denies fatigue, Denies fever(s), Denies night sweats, Denies poor appetite and Denies weight loss ENT Reports Normal hearing present, Denies dental pain, Denies dysphagia, Denies hearing loss, Denies mouth pain, Denies odynophagia, Denies throat swelling, Denies tongue swelling and Reports other (Dentition adequate) Card Reports no additional complaints Resp Reports no additional complaints GI Reports abdominal pain, Denies melena, Denies bloating, Denies hematochezia, Denies constipation, Denies GI cramping, Denies dysphagia, Denies excessive flatus, Denies early satiety, Reports dyspepsia, Reports heartburn, Reports diarrhea, Denies nausea, Denies odynophagia, Denies vomiting and Denies hematemesis Skin/Breast Denies pruritus, Denies lesions, Denies rash and Denies jaundice Neuro Reports Normal hearing present and Denies Abnormal speech present Endo Denies fatigue Aller/Immun Denies throat swelling and Denies tongue swelling Physical Exam Vital Signs: Last Vital Signs Pulse 71 01/22/23 15:15 BP 119/81 01/22/23 15:15 BMI result Body Mass Index 30.8 Const General: cooperative, no acute distress, well developed and well groomed Nutritional Appearance: well nourished and obese Orientation/consciousness: oriented to person, oriented to place and oriented to time Limitations: No language barrier HEENT Head: Yes normocephalic and Yes atraumatic Eyes General: appearance normal, both eyes and all related structures Pupils: Equal, round and reactive pupils present Neck Neck: Yes normal visual inspection and Yes no lymphadenopathy Thyroid: Thyroid normal Resp Effort & Inspection: normal respiratory effort and able to speak in complete sentences Auscultation: clear to auscultation bilaterally Cardio Rate: regular rate Rhythm: regular rhythm Heart sounds: Normal, physiologic split S2 sound present Peripheral pulses: radial pulses present and posterior tibial pulses present GI Inspection: No distended, No Abdominal panniculus present and Yes obesity Palpation (GI): Soft to palpation, nontender, no guarding, not rigid and No hepatosplenomegaly present Percussion: Yes normal to percussion Auscultation: normal bowel sounds Rectal Exam - Male: Yes deferred Abdomen image: 2 1. dry patch of skin Skin General skin exam: no rashes or lesions noted, turgor normal, skin not dry, no jaundice, No spider nevi and no striae Rashes: no rashes Nails: normal Neuro General: oriented to person, oriented to place and oriented to time Cranial nerves: Yes Equal, round and reactive pupils present and Yes Normal hearing present Speech: No Abnormal speech present Extrem General: Yes normal to inspection, No clubbing, No cyanosis and No edema Psych Appearance: grossly normal and well kempt Mental Status: mental status grossly normal Speech and movement: Normal speech and movement present Affect: normal affect Attitude: cooperative Thought process: Normal thought process present and not confabulating Thought content: Normal thought content present Insight: Poor insight present (Psych) Judgement: Poor judgement present (Psych) Assessment & Plan Assessment & Plan (1) Helicobacter pylori gastritis: Code(s): K29.70 - Gastritis, unspecified, without bleeding; B96.81 - Helicobacter pylori [H. pylori] as the cause of diseases classified elsewhere (2) GERD (gastroesophageal reflux disease): Code(s): K21.9 - Gastro-esophageal reflux disease without esophagitis (3) Upper abdominal pain: Code(s): R10.10 - Upper abdominal pain, unspecified (4) Dyspepsia: Code(s): R10.13 - Epigastric pain Plan The information is conflicting about the reason for his visit. He says it is because he has daily upper abdominal pain, he does not take any rx medications at this times. He uses oregano oil with some relief. He will have dyspepsia with some foods and even diarrhea, but he is unclear exactly which foods cause this. This is likely r/t his hx of H pylori. He says he has undergone 2 courses of antibiotics, but I only know about one. It appears he has had this since 2013 when he had a procedure with Dr. Salguero and this was his last colonoscopy. This was negative. There is no FHX of crc or polyps. He dislikes prescription medications and likes to eat more whole foods and use natural remedies. He has a recent Cologuard test that was negative and so he does not immanently need a colonoscopy at this time. He denies any rectal bleeding, wt loss or other alarm sx. I spent a great deal of time trying to educate him the H pylori the reason for his ongoing symptoms. I also try to impress upon him the importance of treating this because it is the 1. Cause of stomach ulcers and stomach cancer. I propose we start with an H pylori breath test and then will decide what studies me weight want to add on going forward. The patient is morbidly obese but seems to have poor insight into the impact this also could have on his heartburn as a symptom. However he has had no recent weight loss or gain as his weight tends to fluctuate upper down in a 5 lb range. Return office visit in 6 weeks Orders: Orders 2 H Pylori Breath Test Today Coding Level of Care Code New Pt Level 3 (95728) Diagnoses Helicobacter pylori gastritis K29.70; B96.81 GERD (gastroesophageal reflux disease) K21.9 Upper abdominal pain R10.10 Dyspepsia R10.13
[2023-01-22 15:15] VITALS: BP 119/81; PULSE 71; BMI 30.8
== END 2023-01-22 16:23 | disposition home or self-care (01) ==
PROVIDERS: PCP Family Medicine; Visit Provider Nurse Practitioner
DX: K29.70 Gastritis, unspecified, without bleeding (principal); B96.81 Helicobacter pylori [H. pylori] as the cause of diseases classified elsewhere; K21.9 Gastro-esophageal reflux disease without esophagitis; R10.10 Upper abdominal pain, unspecified; R10.13 Epigastric pain
CPT/HCPCS: 99203

== ENCOUNTER 2023-01-22 15:05 | Outpatient (REF) | payer OTHER, SELFPAY ==
[2023-01-25 13:45] LABS: H Pylori Breath Test Positive (Negative)
== END 2023-01-22 15:06 | disposition home or self-care (01) ==
LOC: CF 15:05
PROVIDERS: PCP Family Medicine; Visit Provider Nurse Practitioner
DX: K29.70 Gastritis, unspecified, without bleeding (principal); B96.81 Helicobacter pylori [H. pylori] as the cause of diseases classified elsewhere; K21.9 Gastro-esophageal reflux disease without esophagitis; R10.10 Upper abdominal pain, unspecified; R13.10 Dysphagia, unspecified
CPT/HCPCS: 83013

== ENCOUNTER 2023-03-13 15:43 | Outpatient (AMB) | payer OTHER, SELFPAY ==
--- NOTE | 2023-03-13 15:56 | MHC.OFFVIS ---
Intake Vital Signs 03/13/23 15:58 Height 5 ft 8 in Weight 198 lb BMI 30.1 BP 129/79 Blood Pressure Location Lt brachial Position Sitting Pulse 75 Intake Visit Reasons: 6 week follow up Intake Note: Cali presents to in office visit today in 6 weeks follow up of H pylori. CC: Patient reports GERD only with some medications. Denies other GI symptoms. 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 pylori] as the cause of diseases classified elsewhere (2) GERD (gastroesophageal reflux disease): Code(s): K21.9 - Gastro-esophageal reflux disease without esophagitis (3) Upper abdominal pain: Code(s): R10.10 - Upper abdominal pain, unspecified (4) Dyspepsia: Code(s): R10.13 - Epigastric pain Plan The information is conflicting about the reason for his visit. He says it is because he has daily upper abdominal pain, he does not take any rx medications at this times. He uses oregano oil with some relief. He will have dyspepsia with some foods and even diarrhea, but he is unclear exactly which foods cause this. This is likely r/t his hx of H pylori. He says he has undergone 2 courses of antibiotics, but I only know about one. It appears he has had this since 2013 when he had a procedure with Dr. Salguero and this was his last colonoscopy. This was negative. There is no FHX of crc or polyps. He dislikes prescription medications and likes to eat more whole foods and use natural remedies. He has a recent Cologuard test that was negative and so he does not immanently need a colonoscopy at this time. He denies any rectal bleeding, wt loss or other alarm sx. I spent a great deal of time trying to educate him the H pylori the reason for his ongoing symptoms. I also try to impress upon him the importance of treating this because it is the 1. Cause of stomach ulcers and stomach cancer. I propose we start with an H pylori breath test and then will decide what studies me weight want to add on going forward. The patient is morbidly obese but seems to have poor insight into the impact this also could have on his heartburn as a symptom. However he has had no recent weight loss or gain as his weight tends to fluctuate upper down in a 5 lb range. Return office visit in 6 weeks Orders: Orders H Pylori Breath Te st Today CORRESPONDENCE On 01/28/23 @ 10:03 Iman Spain Wrote To Husam Patient notified per message below, he agreed and verbalized understanding. Iman Spain removed from item. On 01/28/23 @ 09:24 HusamKenya Wrote To HusamMay (2) Please call this patient and let him know he does currently have an H pylori infection. I did sending Levaquin and amoxicillin to treat this. Also omeprazole twice a day. Please emphasized the importance of taking them as directed and completing all of the antibiotics since he has already failed to other regimens. Tell him he should take a probiotic supplement as well to help chacko off any diarrhea or Cristina infections from strong antibiotics. This is not covered by insurance so he will have to buy it [id number]. Make sure he has an office visit in 6 weeks and then we will go over how he is doing. [facility] [employer] [facility]; sending him to update labs TODAY'S VISIT He is here today and we did not get the breath test at the last visit. Will get today as he has not been taking omeprazole formany weeks. He still has some upper abd pain depending on what he eats. This is improved from when I first saw him. He would like a colonoscopy despite having a negative cologuard. This may be a good idea since he had some ileitis on his 2014 scope, and IBD would be a reason for some of his ongoing problems, although not likely. There are no prior problems with anesthesia or sedation. He denies any cardiac or respiratory problems. No ID problems. No known FHX of crc or polyps. There is no known family history of esophageal or stomach cancer. [facility] Surgical History H/O esophagogastroduodenoscopy H/O colonoscopy Social History Alcohol intake: former Comment: quit more than 20 years ago Patient Tobacco Use Status: Former Tobacco user Review of Systems Const Denies fatigue, Denies fever(s), Denies night sweats, Denies poor appetite and Denies weight loss ENT Reports Normal hearing present, Denies dental pain, Denies dysphagia, Denies hearing loss, Denies mouth pain, Denies odynophagia, Denies throat swelling, Denies tongue swelling and Reports other (Dentition adequate) Card Reports no additional complaints Resp Reports no additional complaints GI Reports abdominal pain, Denies melena, Denies bloating, Denies hematochezia, Denies constipation, Denies GI cramping, Denies dysphagia, Denies excessive flatus, Denies early satiety, Reports heartburn, Denies diarrhea, Denies nausea, Denies odynophagia, Denies vomiting and Denies hematemesis Skin/Breast Denies pruritus, Denies lesions, Denies rash and Denies jaundice Neuro Reports Normal hearing present and Denies Abnormal speech present Endo Denies fatigue Aller/Immun Denies throat swelling and Denies tongue swelling Physical Exam Vital Signs: Last Vital Signs Pulse 75 03/13/23 15:58 BP 129/79 03/13/23 15:58 BMI result Body Mass Index 30.1 Const General: cooperative, no acute distress, well developed and well groomed Nutritional Appearance: well nourished and obese Orientation/consciousness: oriented to person, oriented to place and oriented to time Limitations: No language barrier HEENT Head: Yes normocephalic and Yes atraumatic Eyes General: appearance normal, both eyes and all related structures Pupils: Equal, round and reactive pupils present Neck Neck: Yes normal visual inspection and Yes no lymphadenopathy Thyroid: Thyroid normal Resp Effort & Inspection: normal respiratory effort and able to speak in complete sentences Auscultation: clear to auscultation bilaterally Cardio Rate: regular rate Rhythm: regular rhythm Heart sounds: Normal, physiologic split S2 sound present Peripheral pulses: radial pulses present and posterior tibial pulses present GI Inspection: No distended, Yes Abdominal panniculus present and Yes obesity Palpation (GI): Soft to palpation, nontender, no guarding, not rigid and No hepatosplenomegaly present Percussion: Yes normal to percussion Auscultation: normal bowel sounds Rectal Exam - Male: Yes deferred Skin General skin exam: no rashes or lesions noted, turgor normal, skin not dry, no jaundice, No spider nevi and no striae Rashes: no rashes Nails: normal Neuro General: oriented to person, oriented to place and oriented to time Cranial nerves: Yes Equal, round and reactive pupils present and Yes Normal hearing present Speech: No Abnormal speech present Extrem General: Yes normal to inspection, No clubbing, No cyanosis and No edema Psych Appearance: grossly normal and well kempt Mental Status: mental status grossly normal Speech and movement: Normal speech and movement present Affect: Animated affect present Attitude: cooperative Thought process: Circumstantial thought process present, not confabulating and Loose association thought process present Thought content: Normal thought content present Insight: Limited insight present (Psych) and Poor insight present (Psych) Judgement: Limited judgement present (Psych) and Poor judgement present (Psych) Assessment & Plan Assessment & Plan (1) Helicobacter pylori gastritis: Code(s): K29.70 - Gastritis, unspecified, without bleeding; B96.81 - Helicobacter pylori [H. pylori] as the cause of diseases classified elsewhere (2) GERD (gastroesophageal reflux disease): Code(s): K21.9 - Gastro-esophageal reflux disease without esophagitis (3) Upper abdominal pain: Code(s): R10.10 - Upper abdominal pain, unspecified (4) Ileitis: Comment: On 2013 colonoscopy Code(s): K52.9 - Noninfective gastroenteritis and colitis, unspecified Plan [employer]; sending him to update labs H pylori breath test TODAY'S VISIT He is here today and we did not get the breath test at the last visit. Will get today as he has not been taking omeprazole formany weeks. He still has some upper abd pain depending on what he eats. This is improved from when I first saw him. He would like a colonoscopy despite having a negative cologuard. This may be a good idea since he had some ileitis on his 2014 scope, and IBD would be a reason for some of his ongoing problems, although not likely. There are no prior problems with anesthesia or sedation. He denies any cardiac or respiratory problems. No ID problems. No known FHX of crc or polyps. There is no known family history of esophageal or stomach cancer. Orders: Orders Complete Blood Count Auto Diff 03/12/23 E66.09 - Other obesity due to excess calories, Z68.32 - Body mass index [BMI] 32.0-32.9, adult Comprehensive Met. Panel 03/12/23 E66.09 - Other obesity due to excess calories, Z68.32 - Body mass index [BMI] 32.0-32.9, adult EGD/[place] Combo - GI Use Only 03/13/23 B96.81 - Helicobacter pylori [H. pylori] as the cause of diseases classified elsewhere, K29.70 - Gastritis, unspecified, without bleeding, K52.9 - Noninfective gastroenteritis and colitis, unspecified, R10.10 - Upper abdominal pain, unspecified H Pylori Breath Test 03/13/23 Coding Level of Care Code Est Pt Level 4 (73402) Diagnoses Helicobacter pylori gastritis K29.70; B96.81 GERD (gastroesophageal reflux disease) K21.9 Upper abdominal pain R10.10 Ileitis K52.9
[2023-03-13 15:58] VITALS: BP 129/79; PULSE 75; BMI 30.1
== END 2023-03-13 17:03 | disposition home or self-care (01) ==
PROVIDERS: PCP Family Medicine; Visit Provider Nurse Practitioner
DX: K29.70 Gastritis, unspecified, without bleeding (principal); B96.81 Helicobacter pylori [H. pylori] as the cause of diseases classified elsewhere; K21.9 Gastro-esophageal reflux disease without esophagitis; R10.10 Upper abdominal pain, unspecified; K52.9 Noninfective gastroenteritis and colitis, unspecified
CPT/HCPCS: 99214

== ENCOUNTER 2023-03-13 15:43 | Outpatient (REF) | payer OTHER, SELFPAY ==
[2023-03-18 13:51] LABS: H Pylori Breath Test Negative (Negative)
== END 2023-03-13 15:44 | disposition home or self-care (01) ==
LOC: HO.LNP 15:43
PROVIDERS: PCP Family Medicine; Visit Provider Nurse Practitioner
DX: K29.70 Gastritis, unspecified, without bleeding (principal); B96.81 Helicobacter pylori [H. pylori] as the cause of diseases classified elsewhere; K21.9 Gastro-esophageal reflux disease without esophagitis; R10.10 Upper abdominal pain, unspecified; K52.9 Noninfective gastroenteritis and colitis, unspecified
CPT/HCPCS: 83013

== ENCOUNTER 2023-03-15 09:24 | Outpatient (REF) | payer OTHER, SELFPAY ==
[2023-03-15 09:42] LABS: MANUAL DIFF FLAG NO
[2023-03-15 10:40] LABS: Basophils Absolute Auto 0.1 X10*3/uL (0.0-0.2); Eosinophils Absolute Auto 0.5 X10*3/uL (0.0-0.4); Eosinophils Percent Auto 6.9 % (0-4); Hematocrit 45.5 % (42.0-52.0); Hemoglobin 14.4 g/dl (14.0-18.0); Imm Gran Abs Auto 0.01 X10*3/uL (0.00-0.03); Imm Gran Pct Auto 0.1 % (0.0-0.4); Lymphocytes Absolute Auto 2.8 X10*3/uL (1.2-4.9); Lymphocytes Percent Auto 39.2 % (20-40); Mean Corpuscular HGB Conc 31.6 g/dl (31.0-36.0); Mean Corpuscular Hemoglobin 26.6 pg (27.0-33.0); Mean Corpuscular Volume 83.9 fL (80.0-98.0); Monocytes Absolute Auto 0.7 X10*3/uL (0.1-1.2); Monocytes Percent Auto 9.1 % (2-11); Neutrophils Absolute Auto 3.1 x10*3/uL (2.0-8.3); Neutrophils Percent Auto 43.7 % (45-73); Platelet Count 372 X10*3/uL (160-400); Red Blood Count 5.42 X10*6/uL (4.60-5.80); Red Cell Distribution Width 14.5 % (11.0-16.0); White Blood Count 7.2 X10*3/uL (4.8-10.8)
[2023-03-15 11:38] LABS: Alanine Aminotransferase 39 U/L (0-40); Albumin Level 3.8 g/dL (3.5-5.0); Alkaline Phosphatase 69 U/L (39-117); Anion Gap 13 (12-20); Aspartate Amino Transferase 21 U/L (5-37); Bilirubin Total 0.6 mg/dL (0.0-1.0); Blood Urea Nitrogen 10 mg/dL (9-16); Calcium 9.6 mg/dL (8.4-10.2); Carbon Dioxide 22 mmol/L (22-29); Chloride 111 mmol/L (96-108); Cholesterol 99 mg/dL (<200); Estimated Glomerular Filt Rate > 60; Glucose Random 98 mg/dL (60-115); HDL Cholesterol 49 mg/dL (>40); LDL Cholesterol Calculated 44 mg/dL (<100); Potassium 4.1 mmol/L (3.3-5.1); Sodium 142 mmol/L (135-145); Triglycerides 32 mg/dL (<150); Uric Acid 4.1 mg/dL (3.4-7.0)
== END 2023-03-15 09:25 | disposition home or self-care (01) ==
LOC: HO.LAB 09:24
PROVIDERS: Nurse Practitioner; Urology; PCP Family Medicine; Visit Provider Family Medicine
DX: Z12.5 Encounter for screening for malignant neoplasm of prostate (principal); E66.09 Other obesity due to excess calories; Z68.32 Body mass index [BMI] 32.0-32.9, adult; M25.50 Pain in unspecified joint; N41.9 Inflammatory disease of prostate, unspecified
CPT/HCPCS: 36415; 80053; 80061; 84153; 84550; 85025

== ENCOUNTER 2023-04-03 14:29 | Outpatient (REF) | payer OTHER, SELFPAY ==
--- NOTE | ~2023-04-03 | US_ITS ---
EXAMINATION: ANKLE-BRACHIAL INDICES SINGLE LEVEL PULSE VOLUME RECORDING ARTERIAL DUPLEX BILATERAL LEGS CLINICAL INFORMATION: Bilateral leg cramping. COMPARISON: None TECHNIQUE: Ankle-brachial indices and PVR at the ankle were obtained. Duplex Doppler of the bilateral lower extremity arterial systems was performed. FINDINGS: RIGHT: Ankle-brachial index: 1.20 PVR: Normal Common femoral: PSV 106 cm/s. Triphasic waveform. Deep femoral: PSV 74 cm/s. Triphasic waveform. Proximal superficial femoral: PSV 101 cm/s. Triphasic waveform. Mid superficial femoral: PSV 114 cm/s. Triphasic waveform. Distal superficial femoral: PSV 79 cm/s. Triphasic waveform. Popliteal: PSV 44 cm/s. Triphasic waveform. Posterior tibial: PSV 100 cm/s. Triphasic waveform. Peroneal: PSV 57 cm/s. Triphasic waveform. Anterior tibial: PSV 54 cm/s. Triphasic waveform. Dorsalis pedis: PSV 33 cm/s. Triphasic waveform. LEFT: Ankle-brachial index: 1.16 PVR: Normal Common femoral: PSV 87 cm/s. Triphasic waveform. Deep femoral: PSV 59 cm/s. Triphasic waveform. Proximal superficial femoral: PSV 92 cm/s. Triphasic waveform. Mid superficial femoral: PSV 86 cm/s. Triphasic waveform. Distal superficial femoral: PSV 65 cm/s. Triphasic waveform. Popliteal: PSV 71 cm/s. Triphasic waveform. Posterior tibial: PSV 63 cm/s. Triphasic waveform. Peroneal: PSV 38 cm/s. Triphasic waveform. Anterior tibial: PSV 55 cm/s. Triphasic waveform. Dorsalis pedis: PSV 52 cm/s. Triphasic waveform. US/US KEIRA complete IMPRESSION: No evidence of hemodynamically significant peripheral arterial disease bilaterally.
--- NOTE | ~2023-04-03 | US_ITS ---
EXAMINATION: ANKLE-BRACHIAL INDICES SINGLE LEVEL PULSE VOLUME RECORDING ARTERIAL DUPLEX BILATERAL LEGS CLINICAL INFORMATION: Bilateral leg cramping. COMPARISON: None TECHNIQUE: Ankle-brachial indices and PVR at the ankle were obtained. Duplex Doppler of the bilateral lower extremity arterial systems was performed. FINDINGS: RIGHT: Ankle-brachial index: 1.20 PVR: Normal Common femoral: PSV 106 cm/s. Triphasic waveform. Deep femoral: PSV 74 cm/s. Triphasic waveform. Proximal superficial femoral: PSV 101 cm/s. Triphasic waveform. Mid superficial femoral: PSV 114 cm/s. Triphasic waveform. Distal superficial femoral: PSV 79 cm/s. Triphasic waveform. Popliteal: PSV 44 cm/s. Triphasic waveform. Posterior tibial: PSV 100 cm/s. Triphasic waveform. Peroneal: PSV 57 cm/s. Triphasic waveform. Anterior tibial: PSV 54 cm/s. Triphasic waveform. Dorsalis pedis: PSV 33 cm/s. Triphasic waveform. LEFT: Ankle-brachial index: 1.16 PVR: Normal Common femoral: PSV 87 cm/s. Triphasic waveform. Deep femoral: PSV 59 cm/s. Triphasic waveform. Proximal superficial femoral: PSV 92 cm/s. Triphasic waveform. Mid superficial femoral: PSV 86 cm/s. Triphasic waveform. Distal superficial femoral: PSV 65 cm/s. Triphasic waveform. Popliteal: PSV 71 cm/s. Triphasic waveform. Posterior tibial: PSV 63 cm/s. Triphasic waveform. Peroneal: PSV 38 cm/s. Triphasic waveform. Anterior tibial: PSV 55 cm/s. Triphasic waveform. Dorsalis pedis: PSV 52 cm/s. Triphasic waveform. US/US arterial duplex LE BI IMPRESSION: No evidence of hemodynamically significant peripheral arterial disease bilaterally.
== END 2023-04-03 14:30 | disposition home or self-care (01) ==
LOC: HO.US 14:29
PROVIDERS: PCP Family Medicine; Visit Provider Family Medicine
DX: I83.813 Varicose veins of bilateral lower extremities with pain (principal); I73.9 Peripheral vascular disease, unspecified
CPT/HCPCS: 93923; 93925

== ENCOUNTER 2023-07-03 07:22 | Day surgery (SDC) | payer OTHER, SELFPAY ==
--- NOTE | 2023-07-02 09:35 | HO.ANESPROP2 ---
Documented by User: Fabby Schuler NP 07/02/23 09:36 HPI - Anesthesia Eval Consult details Narrative: 58yo M for Upper Endoscopy and Colonoscopy [facility] Active Problems Active Problems: All Active Problems Ileitis (Acute) Dyspepsia (Acute) Upper abdominal pain (Acute) Wrist arthritis (Acute) Helicobacter pylori gastritis (Acute) GERD (gastroesophageal reflux disease) (Acute) Transaminitis (Acute) Obesity (BMI 30.0-34.9) (Acute) Knee pain, acute (Acute) Prostatitis (Acute) Past Medical History Medical History (Updated 07/03/23 @ 08:33 by Nati Washington, RN) [place] Surgical History Surgical History H/O colonoscopy H/O esophagogastroduodenoscopy Social History Social History Alcohol intake: former Comment: quit more than 20 years ago Patient Tobacco Use Status: Former Tobacco user Use of substances other than those prescribed or required for medical reasons: No Are you DNR?: No Advance Directives: No Advance Directives Information Provided: Yes Meds Allergies Allergy/AdvReac Type Severity Reaction Status Date / Time No Known Allergies Allergy Verified 03/13/23 16:12 Home Medications ?Medication ?Instructions ?Recorded ?Confirmed ?Last Taken ?Type Saccharomyces boulardii 250 mg 250 mg PO BID 03/13/23 Unknown History capsule (Daily Probiotic (S. boulardii)) Assessment and Plan Assessment Anesthesia Assessment: Chart Reviewed Documented by User: Christopher Jones MD 07/03/23 09:44 [facility] Past Medical History Medical History (Updated 07/03/23 @ 08:33 by Nati Washington, ROCKY) [place] Family History Family history of problems with anesthesia: No Surgical History Surgical History H/O colonoscopy H/O esophagogastroduodenoscopy History of Problems with Anesthesia: No Social History Social History Alcohol intake: former Comment: quit more than 20 years ago Patient Tobacco Use Status: Former Tobacco user Use of substances other than those prescribed or required for medical reasons: No Are you DNR?: No Advance Directives: No Advance Directives Information Provided: Yes Meds Allergies Allergy/AdvReac Type Severity Reaction Status Date / Time No Known Allergies Allergy Verified 03/13/23 16:12 Home Medications ?Medication ?Instructions ?Recorded ?Confirmed ?Last Taken ?Type Saccharomyces boulardii 250 mg 250 mg PO BID 03/13/23 Unknown History capsule (Daily Probiotic (S. boulardii)) Exam Airway Mallampati Class: II TM Dist: <=3cm Neck ROM: Full Loose/Missing/Broken Teeth: No Heart: ok Lungs: ok Assessment and Plan Assessment Anesthesia Assessment: Anesthesia Plan Discussed Final Anesthetic Review Family History of Problems with Anesthesia: No History of Problems with Anesthesia: No NPO: Yes ASA Class: II Final Preanesthetic Review: No Changes in Pt Med Stat, Meds/Allgs Chart Reviewed, Consent Obtained/Reviewed and Anes Risks/Benef Reviewed Patient Risk: Low Procedure Risk: Intermediate Anesthetic Plan Anesthetic Plan: Agree w/ Assess. and Plan and TIVA Disposition: Standard PACU
[2023-07-03 08:36] VITALS: BMI 32.1
[2023-07-03 08:38] VITALS: BP 112/68; PULSE 60; RESP 16; TEMP 36.1; O2SAT 95
[2023-07-03] MEDS: Lactated Ringers 1,000 ML 100 ML IVCONT (08:49)
--- NOTE | 2023-07-03 08:51 | MHC.SHP ---
Pre-Procedural Eval Section A - 24 Hr Update-Section A only Date of Service: 07/03/23 Section B - Complete if H&P > 30 days Chief Complaint: Helicobacter pylori [H. pylori] as the cause of di Details of Present Illness: screening colonoscopy Relevant Family History (Specify if Yes): No Relevant Social History: None Present Medications: see Short Stay Collaborative assessment Medical History: Significant History (h pylori, obesity) History of Previous Operations: Relevant previous surgery/procedure and date(s) (H/O esophagogastroduodenoscopy H/O colonoscopy) Allergies: Allergies Allergy/AdvReac Type Severity Reaction Status Date / Time No Known Allergies Allergy Verified 03/13/23 16:12 Review of Systems Sugical H&P ROS: Negative: Constitution, Cardiovascular, Respiratory, Neurological, Psychiatric, Hem-Onc, Allergic/Immunologic, Gastrointestinal, Genitourinary, Musculoskeletal, Integumentary, Endocrine and Eyes/Ears/Nose/Throat Exam Surgical H&P Exam: Normal: HEENT, Normal: Heart, Normal: Lungs, Normal: Extremities, Normal: Abdomen, Normal: Skin and Normal: Neurological Plan Diagnosis/Plan: Unchanged I have reviewed the history and physical and performed a pertinent physical examination on my patient. No changes have occurred unless specified. Time Spent With Patient Time: Total time managing care of this patient today ____ minutes.
--- NOTE | 2023-07-03 09:52 | HO.OPN-COLON ---
Colonoscopy Operative Note Operative Note Date of Service: 07/03/23 Narrative: Operative Information Procedure Description: EGD, Colonoscopy Indication: hx of h pylori, screening colon Anesthesia: MAC FLEXIBLE TRANSORAL UPPER GASTROINTESTINAL ENDOSCOPY AND COLONOSCOPY PROCEDURE NOTE UPPER ENDOSCOPY Consent: Indications for the procedure and potential complications of bleeding, perforation, reaction to medications and missed diagnosis were discussed with the patient and informed consent was obtained. Instrument: Olympus GIF H 190 J mid size upper endoscope Monitoring: Vital signs and clinical assessment, continuous EKG monitoring, Pulse oximetry, Carbon Dioxide monitoring and blood pressure monitoring were done throughout the procedure. Procedure: The patient was placed in the left lateral decubitis position and pre-procedure medications were administered and a bite block was placed. The endoscope was inserted into the mouth and advanced under direct vision to the third part of duodenum. A careful inspection was made as the upper endoscope was withdrawn including a retroflexed examination of the proximal stomach; Findings and interventions are described below. Findings: Larynx:normal Esophagus: GE junction at 40 cm, diaphragm hiatus at 40 cm, normal mucosa Stomach: mild erythema and granularity. Biopsies were obtained. Grade 2 flap valve on retroflexed examination of the cardia. Duodenum: Normal bulb and descending duodenum, Intervention: Biopsies as noted above, COLONOSCOPY Instrument: Olympus variable stiffness pediatric scope 190L Colonoscopy Monitoring: Vital signs and clinical assessment, continuous EKG monitoring, Pulse oximetry, Carbon Dioxide monitoring and blood pressure monitoring were done throughout the procedure. Colon withdrawal time was 8 minutes. Procedure: The patient was placed in the left lateral decubitis position and pre-procedure medications were administered. After a digital rectal examination of the ano-rectum, the video colonoscope was inserted into the rectum and advanced through the colon to the cecum/TI. The colonoscope was slowly withdrawn in a retrograde panoramic fashion and the colon mucosa was carefully examined including a retroflexed view of the rectum. Findings and interventions are described below. Procedure Difficulty:easy Findings: Terminal Ileum-normal Cecum:normal Right sided retroflexion- normal Ascending Colon: normal Transverse Colon -normal Descending Colon:normal Sigmoid Colon: normal Rectum: Retroflexion with small internal hemorrhoids, grade I Anorectum - normal Colon preparation: Picacho Bowel Preparation Scale Right colon; 2 Transverse colon: 3 Left colon; 3 (0 = Unprepared colon segment with mucosa not seen due to solid stool that cannot be cleared. 1 = Portion of mucosa of the colon segment seen, but other areas of the colon segment not well seen due to staining, residual stool and/or opaque liquid. 2 = Minor amount of residual staining, small fragments of stool and/or opaque liquid, but mucosa of colon segment seen well. 3 = Entire mucosa of colon segment seen well with no residual staining, small fragments of stool or opaque liquid) Impression and Post Procedure Diagnosis: Endoscopy Findings: mild gastritis Colonoscopy Findings: internal hemorrhoids Plan: Await Pathology results Repeat Colonoscopy in 10 years or earlier if clinically indicated High fiber diet leaflet avoid straining at stool, epsom salts and sitz bath, anusol supps or cream Above findings were reviewed with the patient and relevant handouts were provided if indicated.
[2023-07-03 09:59] VITALS: BP 92/53; PULSE 67; RESP 18; TEMP 36.2; O2SAT 96
[2023-07-03 10:14] VITALS: BP 105/74; PULSE 61; RESP 18; TEMP 36.8; O2SAT 98
== END 2023-07-03 11:07 | disposition home or self-care (01) ==
PROVIDERS: PCP Family Medicine; Visit Provider Internal Medicine Gastroenterology
PROC: (CPT 45378; principal; 2023-07-03 09:40)
DX: Z12.11 Encounter for screening for malignant neoplasm of colon (principal); K29.70 Gastritis, unspecified, without bleeding; K64.0 First degree hemorrhoids; Z86.19 Personal history of other infectious and parasitic diseases
CPT/HCPCS: 45378; 43239; 88305; 88313; 88342; J2704

== ENCOUNTER → 2023-07-03 07:22 | Outpatient (BNV) | payer OTHER, SELFPAY | PROVIDERS: PCP Family Medicine; Visit Provider Internal Medicine Gastroenterology | DX: Z12.11 Encounter for screening for malignant neoplasm of colon (principal); K64.0 First degree hemorrhoids; K29.70 Gastritis, unspecified, without bleeding | CPT/HCPCS: 43239; 45378 ==

== ENCOUNTER 2023-07-17 15:19 | Outpatient (AMB) | payer OTHER, SELFPAY ==
[2023-07-17 15:22] VITALS: BP 139/92; PULSE 70; BMI 32.9
--- NOTE | 2023-07-17 15:22 | MHC.OFFVIS ---
Vital Signs 07/17/23 15:22 07/17/23 15:33 Height 5 ft 6 in Weight 204 lb 2.369 oz BMI 32.9 BP 139/92 H 138/89 Blood Pressure Location Rt brachial Position Sitting Pulse 70 Intake Visit Reasons: s/p egd/colon Intake Note: Patient returns to in office follow up s/p EGD and colonoscopy. CC: Patient reports doing well and denies having any GI concerns. 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 pylori] as the cause of diseases classified elsewhere (2) GERD (gastroesophageal reflux disease): Code(s): K21.9 - Gastro-esophageal reflux disease without esophagitis (3) Upper abdominal pain: Code(s): R10.10 - Upper abdominal pain, unspecified (4) Ileitis: Comment: On 2014 colonoscopy Code(s): K52.9 - Noninfective gastroenteritis and colitis, unspecified He is here today and we did not get the breath test at the last visit. Will get today as he has not been taking omeprazole formany weeks. He still has some upper abd pain depending on what he eats. This is improved from when I first saw him. He would like a colonoscopy despite having a negative cologuard. This may be a good idea since he had some ileitis on his 2014 scope, and IBD would be a reason for some of his ongoing problems, although not likely. There are no prior problems with anesthesia or sedation. He denies any cardiac or respiratory problems. No ID problems. No known FHX of crc or polyps. There is no known family history of esophageal or stomach cancer. Orders: Orders Complete Blood Count Auto Diff 03/12/23 E66.09 - Other obesity due to excess calories, Z68.32 - Body mass index [BMI] 32.0-32.9, adult Comprehensive Met. Panel 03/12/23 E66.09 - Other obesity due to excess calories, Z68.32 - Body mass index [BMI] 32.0-32.9, adult EGD/[place] Combo - GI Use Only 03/13/23 B96.81 - Helicobacter pylori [H. pylori] as the cause of diseases classified elsewhere, K29.70 - Gastritis, unspecified, without bleeding, K52.9 - Noninfective gastroenteritis and colitis, unspecified, R10.10 - Upper abdominal pain, unspecified H Pylori Breath Test 03/13/23 LABS: Laboratory Tests 03/13/23 03/15/23 16:54 09:39 WBC 7.2 Hgb 14.4 Hct 45.5 Plt Count 372 Estimated GFR > 60 Total Bilirubin 0.6 AST 21 ALT 39 Alkaline Phosphatase 69 H. pylori Breath Test Negative EGD/COLONOSCOPY 07/03/23 Findings: Larynx:normal Esophagus: GE junction at 40 cm, diaphragm hiatus at 40 cm, normal mucosa Stomach: mild erythema and granularity. Biopsies were obtained. Grade 2 flap valve on retroflexed examination of the cardia. Duodenum: Normal bulb and descending duodenum, Findings: Terminal Ileum-normal Cecum:normal Right sided retroflexion- normal Ascending Colon: normal Transverse Colon -normal Descending Colon:normal Sigmoid Colon: normal Rectum: Retroflexion with small internal hemorrhoids, grade I Anorectum - normal Impression and Post Procedure Diagnosis: Endoscopy Findings: mild gastritis Colonoscopy Findings: internal hemorrhoids Plan: Await Pathology results Repeat Colonoscopy in 10 years or earlier if clinically indicated High fiber diet leaflet avoid straining at stool, epsom salts and sitz bath, anusol supps or cream BIOPSY Received: 07/03/23 Diagnosis Stomach, biopsy: Oxyntic mucosa with mild chronic inactive inflammation; no Helicobacter organisms seen. TODAY'S VISIT He tolerated the procedure well. I explained the results and he has agreeable to a 10 year recall. The procedure was well tolerated. The results were explained and the patient is agreeable to the follow-up interval as stated. The bowel pattern has returned to normal. Education was provided to tell any 1st degree relatives about their findings to be sure that they are screened by age 45. Educated that they will be put on a recall list when it is time for their repeat scope but should they move out of state or away from the hospital they will need to remember along with their primary to repeat the procedure in a timely fashion to avoid any adverse complications. Return office visit p.r.n. [facility] Medical History [place] Surgical History H/O colonoscopy H/O esophagogastroduodenoscopy Social History Alcohol intake: former Comment: quit more than 20 years ago Patient Tobacco Use Status: Former Tobacco user Review of Systems Const Denies fatigue, Denies fever(s), Denies night sweats, Denies poor appetite and Denies weight loss ENT Reports Normal hearing present, Denies dental pain, Denies dysphagia, Denies hearing loss, Denies mouth pain, Denies odynophagia, Denies throat swelling, Denies tongue swelling and Reports other (Dentition adequate) Card Reports no additional complaints Resp Reports no additional complaints GI Details: Denies abdominal pain, Denies melena, Denies bloating, Denies hematochezia, Denies constipation, Denies GI cramping, Denies dysphagia, Denies excessive flatus, Denies early satiety, Denies heartburn, Denies diarrhea, Denies nausea, Denies odynophagia, Denies vomiting and Denies hematemesis Skin/Breast Denies pruritus, Denies lesions, Denies rash and Denies jaundice Neuro Reports Normal hearing present and Denies Abnormal speech present Endo Denies fatigue Aller/Immun Denies throat swelling and Denies tongue swelling Physical Exam Vital Signs: Last Vital Signs Pulse 70 07/17/23 15:22 BP 138/89 07/17/23 15:33 BMI result Body Mass Index 32.9 Const General: cooperative, no acute distress, well developed and well groomed Nutritional Appearance: well nourished and obese Orientation/consciousness: oriented to person, oriented to place and oriented to time Limitations: No language barrier HEENT Head: Yes normocephalic and Yes atraumatic Eyes General: appearance normal, both eyes and all related structures Pupils: Equal, round and reactive pupils present Neck Neck: Yes normal visual inspection and Yes no lymphadenopathy Thyroid: Thyroid normal Resp Effort & Inspection: normal respiratory effort and able to speak in complete sentences Auscultation: clear to auscultation bilaterally Cardio Rate: regular rate Rhythm: regular rhythm Heart sounds: Normal, physiologic split S2 sound present Peripheral pulses: radial pulses present and posterior tibial pulses present GI Inspection: No distended, No Abdominal panniculus present and Yes obesity Palpation (GI): Soft to palpation, nontender, no guarding, not rigid and No hepatosplenomegaly present Percussion: Yes normal to percussion Auscultation: normal bowel sounds Rectal Exam - Male: Yes deferred Skin General skin exam: no rashes or lesions noted, turgor normal, skin not dry, no jaundice, No spider nevi and no striae Rashes: no rashes Nails: normal Neuro General: oriented to person, oriented to place and oriented to time Cranial nerves: Yes Equal, round and reactive pupils present and Yes Normal hearing present Speech: No Abnormal speech present Extrem General: Yes normal to inspection, No clubbing, No cyanosis and No edema Psych Appearance: grossly normal and well kempt Mental Status: mental status grossly normal Speech and movement: Normal speech and movement present Affect: normal affect Attitude: cooperative Thought process: Normal thought process present and not confabulating Thought content: Normal thought content present Insight: Fair insight present (Psych) Judgement: Fair judgement present (Psych) Results Reviewed Results Reviewed: Laboratory Tests 03/13/23 03/15/23 16:54 09:39 WBC 7.2 Hgb 14.4 Hct 45.5 Plt Count 372 Estimated GFR > 60 Total Bilirubin 0.6 AST 21 ALT 39 Alkaline Phosphatase 69 H. pylori Breath Test Negative EGD/COLONOSCOPY 07/03/23 Findings: Larynx:normal Esophagus: GE junction at 40 cm, diaphragm hiatus at 40 cm, normal mucosa Stomach: mild erythema and granularity. Biopsies were obtained. Grade 2 flap valve on retroflexed examination of the cardia. Duodenum: Normal bulb and descending duodenum, Findings: Terminal Ileum-normal Cecum:normal Right sided retroflexion- normal Ascending Colon: normal Transverse Colon -normal Descending Colon:normal Sigmoid Colon: normal Rectum: Retroflexion with small internal hemorrhoids, grade I Anorectum - normal Impression and Post Procedure Diagnosis: Endoscopy Findings: mild gastritis Colonoscopy Findings: internal hemorrhoids Plan: Await Pathology results Repeat Colonoscopy in 10 years or earlier if clinically indicated High fiber diet leaflet avoid straining at stool, epsom salts and sitz bath, anusol supps or cream BIOPSY Received: 07/03/23 Diagnosis Stomach, biopsy: Oxyntic mucosa with mild chronic inactive inflammation; no Helicobacter organisms seen. Assessment & Plan Assessment & Plan (1) Ileitis: Comment: On 2013 colonoscopy Code(s): K52.9 - Noninfective gastroenteritis and colitis, unspecified Category: Medical (2) Upper abdominal pain: Code(s): R10.10 - Upper abdominal pain, unspecified Category: Medical (3) GERD (gastroesophageal reflux disease): Code(s): K21.9 - Gastro-esophageal reflux disease without esophagitis Category: Medical Plan He tolerated the procedure well. I explained the results and he has agreeable to a 10 year recall. The procedure was well tolerated. The results were explained and the patient is agreeable to the follow-up interval as stated. The bowel pattern has returned to normal. Education was provided to tell any 1st degree relatives about their findings to be sure that they are screened by age 45. Educated that they will be put on a recall list when it is time for their repeat scope but should they move out of state or away from the hospital they will need to remember along with their primary to repeat the procedure in a timely fashion to avoid any adverse complications. Return office visit p.r.n. Medications: Discontinued omeprazole Discontinued Reason: Doctor's Order 20 mg PO BID 90 days 180 caps 2RF B96.81 - Helicobacter pylori [H. pylori] as the cause of diseases classified elsewhere, K29.70 - Gastritis, unspecified, without bleeding Coding Level of Care Code Est Pt Level 3 (42594) Diagnoses Ileitis K52.9 Upper abdominal pain R10.10 GERD (gastroesophageal reflux disease) K21.9
[2023-07-17 15:33] VITALS: BP 138/89
== END 2023-07-17 15:38 | disposition home or self-care (01) ==
PROVIDERS: PCP Family Medicine; Visit Provider Nurse Practitioner
DX: K52.9 Noninfective gastroenteritis and colitis, unspecified (principal); R10.10 Upper abdominal pain, unspecified; K21.9 Gastro-esophageal reflux disease without esophagitis
CPT/HCPCS: 99213

== ENCOUNTER → 2023-07-17 15:19 | Outpatient (BNVA) | payer OTHER, SELFPAY | PROVIDERS: PCP Family Medicine; Visit Provider Nurse Practitioner ==

== ENCOUNTER → 2023-08-18 10:02 | Outpatient (BNVA) | payer OTHER, SELFPAY | PROVIDERS: PCP Family Medicine; Visit Provider Physician Assistant Medical | DX: S10.96XA Insect bite of unspecified part of neck, initial encounter (principal); T63.91XA Toxic effect of contact with unspecified venomous animal, accidental (unintentional), initial encounter; T78.2XXA Anaphylactic shock, unspecified, initial encounter | CPT/HCPCS: 99203 ==

== ENCOUNTER 2023-09-02 15:14 | Outpatient (AMB) | payer OTHER, SELFPAY ==
--- NOTE | 2023-09-02 16:07 | A.OFFVIS_ITS ---
Intake Visit Reasons: 1Y PSA(SET) Allergies No Known Allergies Allergy (Verified 07/17/23 15:31) HPI Comments Details: Cali is a pleasant male. He is a patient of Dr. Emanuel. He seen for the following urologic conditions - prostatitis PSA stable No prior episodes Follow up p.r.n. Prostatitis Prior episodes prostatitis Change diet and has been stable LALY normal - Had prior ED that responded to weight change PSA 09/08 2.1, 03/12 2.3 Will check PSA in 12 months PFSH Medical History [place] Surgical History H/O colonoscopy H/O esophagogastroduodenoscopy Social History Alcohol intake: former Comment: quit more than 20 years ago Patient Tobacco Use Status: Former Tobacco user Review of Systems Const Denies chills and Denies fever(s) Card Reports no additional complaints and Denies syncope Resp Denies cough GI Denies abdominal pain and Denies heartburn Reports as per HPI and Denies change in libido Neuro Denies syncope Psych Denies change in libido Endo Denies change in libido Physical Exam Const General: cooperative, healthy appearing, comfortable and no acute distress Orientation/consciousness: patient oriented x3 HEENT Face and sinus: Yes normal facial exam Mouth: moist mucous membranes Neck Neck: Yes normal visual inspection, Yes full ROM and Yes trachea midline Chest Chest palpation & inspection: normal inspection of the chest Resp Effort & Inspection: normal respiratory effort, able to speak in complete sentences and no respiratory distress GI Inspection: Yes normal to inspection Back/Spine/Pelvis Cervical Spine: normal cervical lordosis Thoracic/Lumbar Spine: thoracic and lumbar spine normal to inspection Skin General skin exam: no rashes or lesions noted Neuro General: patient oriented x3, gait normal, tone normal and moves all extremities Extrem General: Yes normal to inspection and Yes capillary refill normal Assessment & Plan Assessment & Plan (1) Prostatitis: Code(s): N41.9 - Inflammatory disease of prostate, unspecified Category: Medical Plan P.r.n. follow-up Patient Instructions: Imaging studies, laboratory and physical exam results were discussed and reviewed in detail. No major barriers to patient understanding were identified. An opportunity to ask questions regarding the treatment plan was provided. All questions were answered. The patient expressed understanding and agreement with the above treatment plan. The patient is aware they should contact our office by phone for worsening of their current condition or the appearance of new urologic symptoms. Compliance is encouraged with any medications and followup testing that is ordered. It is a privilege to participate in the urologic care of your patient. If you have any questions or concerns regarding treatment for the above conditions, or other urologic issues, please do not hesitate to contact me. The office telephone contact is [phone]. This note is constructed using voice recognition software. While every effort has been made to ensure accuracy director speech language errors may have been included. Yours sincerely, Dr Gary Olguin MD, [facility] - Urology Providers of Expert, Compassionate Care for the Genitourinary System Coding Level of Care Code Est Pt Level 4 (07272) Diagnoses Prostatitis N41.9
== END 2023-09-02 16:16 | disposition home or self-care (01) ==
PROVIDERS: PCP Family Medicine; Visit Provider Urology
DX: N41.9 Inflammatory disease of prostate, unspecified (principal)
CPT/HCPCS: 99212

== ENCOUNTER → 2023-09-02 15:14 | Outpatient (BNVA) | payer OTHER, SELFPAY | PROVIDERS: PCP Family Medicine; Visit Provider Urology ==

== ENCOUNTER 2023-12-20 08:50 | Outpatient (REF) | payer OTHER, SELFPAY ==
[2023-12-20 09:05] LABS: MANUAL DIFF FLAG NO
[2023-12-20 09:39] LABS: Basophils Absolute Auto 0.1 X10*3/uL (0.0-0.2); Eosinophils Absolute Auto 0.4 X10*3/uL (0.0-0.4); Eosinophils Percent Auto 5.3 % (0-4); Hematocrit 44.6 % (42.0-52.0); Hemoglobin 14.8 g/dl (14.0-18.0); Imm Gran Abs Auto 0.02 X10*3/uL (0.00-0.03); Imm Gran Pct Auto 0.3 % (0.0-0.4); Lymphocytes Absolute Auto 2.3 X10*3/uL (1.2-4.9); Lymphocytes Percent Auto 29.1 % (20-40); Mean Corpuscular HGB Conc 33.2 g/dl (31.0-36.0); Mean Corpuscular Hemoglobin 27.4 pg (27.0-33.0); Mean Corpuscular Volume 82.4 fL (80.0-98.0); Mean Platelet Volume 10.2 fL (9.4-12.4); Monocytes Absolute Auto 0.7 X10*3/uL (0.1-1.2); Neutrophils Absolute Auto 4.3 x10*3/uL (2.0-8.3); Neutrophils Percent Auto 55.3 % (45-73); Platelet Count 355 X10*3/uL (160-400); Red Blood Count 5.41 X10*6/uL (4.60-5.80); Red Cell Distribution Width 14.9 % (11.0-16.0); White Blood Count 7.8 X10*3/uL (4.8-10.8)
[2023-12-20 10:27] LABS: Alanine Aminotransferase 51 U/L (0-40); Albumin Level 3.8 g/dL (3.5-5.0); Alkaline Phosphatase 73 U/L (39-117); Anion Gap 9 (12-20); Aspartate Amino Transferase 29 U/L (5-37); Bilirubin Total 0.7 mg/dL (0.0-1.0); Blood Urea Nitrogen 9 mg/dL (9-16); Calcium 9.9 mg/dL (8.4-10.2); Carbon Dioxide 27 mmol/L (22-29); Chloride 108 mmol/L (96-108); Cholesterol 103 mg/dL (<200); Estimated Glomerular Filt Rate > 60; Glucose Random 110 mg/dL (60-115); HDL Cholesterol 45 mg/dL (>40); LDL Cholesterol Calculated 49 mg/dL (<100); Potassium 3.9 mmol/L (3.3-5.1); Sodium 140 mmol/L (135-145); Triglycerides 48 mg/dL (<150)
[2023-12-20 10:42] LABS: HIV AB/AG Nonreactive (Nonreactive); HIV Num 1 0.06 S/CO (0.00-0.99)
[2023-12-20 10:44] LABS: TSH reflex Free T4 2.33 uIU/mL (0.32-4.0); Vitamin D 25-OH Total 27.4 ng/mL (>30)
[2023-12-25 22:43] LABS: Testosterone, Free 44.3 pg/mL (35.0-155.0); Testosterone, Total 216 ng/dL (250-1100)
== END 2023-12-20 08:51 | disposition home or self-care (01) ==
LOC: HO.LAB 08:50
PROVIDERS: PCP Family Medicine; Visit Provider Family Medicine
DX: Z00.00 Encounter for general adult medical examination without abnormal findings (principal); E66.811 Obesity, class 1; Z68.32 Body mass index [BMI] 32.0-32.9, adult; R53.83 Other fatigue
CPT/HCPCS: 36415; 80053; 80061; 82306; 84402; 84403; 84443; 85025; 87389

== ENCOUNTER → 2024-02-24 13:13 | Outpatient (BNVA) | payer OTHER, SELFPAY | PROVIDERS: PCP Family Medicine; Visit Provider Physician Assistant Medical | DX: S29.012A Strain of muscle and tendon of back wall of thorax, initial encounter (principal); S46.812A Strain of other muscles, fascia and tendons at shoulder and upper arm level, left arm, initial encounter; S29.011A Strain of muscle and tendon of front wall of thorax, initial encounter; S21.109A Unspecified open wound of unspecified front wall of thorax without penetration into thoracic cavity, initial encounter; X50.3XXA Overexertion from repetitive movements, initial encounter | CPT/HCPCS: 99203 ==

== ENCOUNTER 2024-04-09 10:59 | Outpatient (REF) | payer OTHER, SELFPAY ==
--- NOTE | ~2024-04-09 | XR_ITS ---
EXAMINATION: XR ANKLE 3 OR MORE VIEWS LEFT HISTORY: PAIN COMPARISON: There are no prior studies available for comparison. FINDINGS: Three views of the left ankle are submitted. Osseous mineralization is normal. There is no fracture or dislocation. The joint spaces are preserved. There is calcification at the insertion of the triceps tendon. There is mild anteromedial soft tissue swelling. XR/XR ankle LT min 3V IMPRESSION: Mild anteromedial soft tissue swelling. No evidence of fracture of the left ankle. Electronically signed by: Twin Quintero MD 04/12/2024 09:14 AM ELVIRA VILLATORO
--- OUTSIDE RECORDS SUMMARY | 2024-04-09 12:07 | XMS_ITS | Encounter Summary ---
Author Organization [employer] Address [address] [facility] 7t [place] [address] Care Team Providers Care Senior Reservoir Engineer Name Role Phone Claire Emanuel MD Primary Care Provider [phone] Encounter Details Date Type Department Care Team (Latest Contact Info) Description 01/02/2022 Abstract [facility] CONVERSIONS Dental, Provider, DDS Social History Tobacco Use Types Packs/Day Years Used Date Smoking Tobacco: Never Assessed Sex and Gender Information Value Date Recorded Sex Assigned at Male 12/17/2021 10:17 AM EDT Legal Sex Male 10:17 AM EDT Gender Identity Male 12/17/2021 10:17 AM EDT Sexual Orientation Straight 12/17/2021 10 :17 AM EDT documented as of this encounter Plan of Treatment Not on file documented as of this encounter Visit Diagnoses Not on filedocumented in this encounter Care Teams Senior Reservoir Engineer Relationship Specialty Start Date End Date Claire Emanuel MD [address] [place] [phone] PCP - General Family Medicine 11/10/20 documented as of this encounter
--- OUTSIDE RECORDS SUMMARY | 2024-04-09 12:07 | XMS_ITS | Encounter Summary ---
Author Organization [employer] Address [address] [facility] 7t [place] [address] Care Team Providers Care Exhibitions And Collections Manager Name Role Phone Claire Emanuel MD Primary Care Provider [phone] Encounter Details Date Type Department Care Team (Latest Contact Info) Description 04/02/2018 Abstract [facility] CONVERSIONS Dental, Provider, DDS Social History Tobacco [...] on filedocumented in this encounter Care Teams Exhibitions And Collections Manager Relationship Specialty Start Date End Date Claire Emanuel MD [address] [place] [phone] PCP - General Family Medicine 11/10/20 documented as of this encounter
--- OUTSIDE RECORDS SUMMARY | 2024-04-09 12:07 | XMS_ITS | Clinical Summary ---
Author Organization [employer] Address [address] [facility] 7t [place] [address] Care Team Providers Care Quality Compliance Coordinator Name Role Phone Claire Emanuel MD Primary Care Provider [phone] Allergies No known active allergies Medications cyclobenzaprine (Flexeril) 10 MG tablet Take 1 tablet (10 mg) by mouth 3 times daily for 10 days. 30 tablet 04/09/2024 5 Active ibuprofen 800 MG tablet Take 1 tablet (800 mg) by mouth 3 times daily. 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 here for annual physical examination Reviewed care gaps with patient, declined immunizations Will send labs +PHQ-9: declined BH RTC in 1 yr for annual physical exam. Varicose veins of both lower extremities with pa in 03/12/2023 Assessment & Plan (03/12/2023 4:01 PM EST): Patient will be send for labs for further evaluation. Low back pain at multiple sites 04/18/2022 Assessment & Plan (04/18/2022 7:46 PM EST): Patient with paraspinal spasms, right sided SI anterior rotation and leg discrepancies in medial malleoulus. At this point will rx muscle relaxer, reports using home NSAIDs prn, declined other rx's. Will send X ray Obesity 02/04/2018 Assessment & Plan (12/18/2023 2:19 PM EDT): Discussed calorie deficit, recommended reduction of 20-30% of maintenance calories; winery cellar hand referral offered. Recommended to decrease soda and sugary beverage consumption. Recommended at least 20 g per meal of protein to assist with satiety. Recommended at least 150 min/week of moderate intensity exercise. Assessment & Plan (03/12/2023 4:02 PM EST): Discussed calorie deficit, recommended reduction of 20-30% of maintenance calories; winery cellar hand referral offered. Recommended to decrease soda and sugary beverage consumption. Recommended at least 20 g per meal of protein to assist with satiety. Recommended at least 150 min/week of moderate intensity exercise. In addition, patient will be send for labs for further evaluation. -Labs: Comp. Metabolic Panel, CBC, Lipid Panel. Resolved Problems Problem Noted Date Diagnosed Date Resolved Date Upper abdominal pain 12/18/2023 Ileitis 12/18/2023 12/18/2023 Helicobacter pylori gastritis 12/18/2023 12/18/2023 Gout attack 12/18/2023 12/18/2023 Dyspepsia 12/18/2023 12/18/2023 Seborrheic keratosis 03/12/2023 Assessment & Plan (03/12/2023 4:05 PM EST): Patient that presented visit with complaints of Seborrheic Keratosis will be referred to [facility] Derm Skin. In addition, patient will be scheduled an appointment with provider Acute pain of left knee 04/18/202211/19 Cough 04/18/2022 12/18/2023 Assessment & Plan (04/18/2022 7:47 PM EST): Allergic vs viral URI, recommended supportive care. Normal lung exam. RTC if worsening or no improvement. Rapid testing negative, PCR sent out Urological disorder 02/04/2018 12/18/19 24 Encounters Date Type Department Care Team Description 04/09/2024 9:40 AM EST Office Visit [facility] MED & PEDS [address] [place] [address] Rosie Mcgee MD Acute left ankle pain (Primary Dx) 04/09/2024 Travel 04/09/2024 Telephone [facility] MEDICINE [address] [place], [place] [phone] Claire Emanuel MD Nurse Triage from Last 3 Months Immunizations Name Administration Dates Next Due Tdap 10/24/2015 Social History Tobacco Use Types Packs/Day Years Used Date Smoking Tobacco: Never Passive Smoke Exposure: Never Smokeless Tobacco: Never Tobacco Cessation:Counseling Given: Not Answered Depression Answer Date Recorded Patient Health Questionnaire-9 Score 14 12/18/2023 Patient Health Questionnaire-9 Score 14 12/18/2023 Last PHQ-9: Questionnaire Data Not on file 1 Housing Stability Answer Date Recorded What is your housing situation today? I have [place] bridges 12/10/[address] you li ve. Do you have problems with any of the following? None of the above 12/10/2023 Food Insecurity Answer Date Recorded Within the past 12 months, y ou worried that your food would run out before you got money to buy more: Never True 12/10/2023 Within the past 12 months,th e food you bought just didn't last and you didn't have enough money to get more: Never True Transportation Answer Date Recorded In the past 12 months, has l ack of transportation kept you from medical appts, meetings, work or from getting things needed for daily living? No 12/10/2023 Utilities Answer Date Recorded In the past 12 months, has t he electric, gas, oil or water company threatened to shut off services in your home? No 12/10/2023 Depression Answer Date Recorded Patient Health Questionnaire-2 Score 4 12/18/2023 Internet Access Answer Date Recorded Internet Access Q1 Yes 12/10/2023 Internet Access Q2 Not on file 12/10/2023 Sex and Gender Information Value Date Recorded Sex Assigned at Male 12/17/2021 10:17 AM EDT Legal Sex Male 10:17 AM EDT Gender Identity Male 12/17/2021 10:17 AM EDT Sexual Orientation Straight 12/17/2021 10 :17 AM EDT Last Filed Vital Signs Vital Sign Reading Time Taken Comments Blood Pressure 130/74 04/09/2024 9:43 AM EST Pulse 69 04/09/2024 9:43 AM EST Temperature 36.6 ??C (97.9 ??F) 04/09/2024 9:43 AM ES T Respiratory Rate 20 04/09/2024 9:43 AM EST Oxygen Saturation 98% 04/09/2024 9:43 AM EST Inhaled Oxygen Concentration - - Weight 94.8 kg (209 lb) 04/09/2024 9:43 AM EST Height 169 cm (5' 6.54 ) 04/09/2024 9:43 AM EST Body Mass Index 33.19 04/09/2024 9:43 AM EST Plan of Treatment Health Maintenance Due Date Last Done Comments CT Colonography 1965 Colonoscopy 1965 Dental Oral Exam 1965 Dental X-Ray: Bitewings 1965 Dental X-Ray: Full Mouth 1965 FIT 1965 FOBT 1965 Sigmoidoscopy 1965 Pneumococcal Vaccine: 50+ Years (1 of 1 - PCV) 2015 Dental Prophylaxis 07/23/2022 01/21/2022 Depression Monitoring (PHQ-9) 06/16/2024 12/18/2023, 12/18/2023 Influenza Vaccine (#1) 2024 Postp oned from 10/19/2023 (Patient Refused) SDOH Screening 12/09/2024 12/10/2023 Alcohol/Substance Use Screening 12/17/2024 12/18/2023 COVID-19 Vaccine ( season) 2024 03/05/2021, 08/02/2020, 07/05/2020 Postponed from 10/19/2023 (Patient Refused) Depression Screening 12/17/2024 12/18/2023, 12/18/19 24 Tobacco Screening 12/17/2024 12/18/2023 Zoster Vaccines (1 of 2) 12/17/2024 Pos tponed from 2015 (Patient Refused) DTaP/Tdap/Td Vaccines (2 - Td or Tdap) 10/23/2025 10/24/2015 Colorectal Cancer Screening 12/31/2025 FIT DNA/Cologuard 12/31/2025 12/31/2022 Lipid Panel 12/19/2028 12/20/2023, 02/18, 12/15/2021, Additional history exists RSV Patients and Patients Aged 60 years or older (1 - 1-dose 75+ series) 2040 Hepatitis C Screening Completed 10/22/2022 HIV Screening Completed 12/20/2023 HIB Vaccines Aged Out No longer eligi ble based on patient's age to complete this topic HPV Vaccines Aged Out No longer eligi ble based on patient's age to complete this topic Hepatitis A Vaccines Aged Out No long er eligible based on patient's age to complete this topic Hepatitis B Vaccines Discontinued IPV Vaccines Aged Out No longer eligi ble based on patient's age to complete this topic Meningococcal Vaccine Aged Out No jessi jordon eligible based on patient's age to complete this topic RSV under 20 months Aged Out No longe r eligible based on patient's age to complete this topic Rotavirus Vaccines Aged Out No longer eligible based on patient's age to complete this topic Procedures Procedure Name Priority Date/Time Associated Diagnosis Comments HIV 1/2 ANTIGEN/ANTIBODY, FOURTH GENERATION W/RFL Routine 12/20/2023 9:03 AM EDT Annual physical exam LIPID PANEL, STANDARD Routine 12/20/2023 9:03 AM EDT Class 1 obesity with body mass index (BMI) of 32.0 to 32.9 in adult, unspecified obesity type, unspecified whether serious comorbidity present LAB COLOGUARD?? COLON CANCER SCREEN Routine 12/31/2022 7:39 PM EST Colon cancer screening HEPATITIS C AB W/REFL TO HCV RNA, QN, PCR Routine 10/22/2022 3:29 PM EDT Right upper quadrant abdominal pain PROPHYLAXIS - ADULT Routine 01/21/2022 4 :00 PM EST Encounter for dental examination from Last 3 Months or Most Recently Relevant to Health Maintenance Results * HIV-1/2 Antigen and Antibodies, Fourth Generation, with Reflexes (12/20/2023 9:03 AM EDT) HIV AB/AG Nonreactive Nonreactive [facility] Comment:HIV-1 p24 Ag and/or HIV-1/HIV-2 Ab not detected.A test result that is nonreactive does not exclude thepossibility of exposure to or infection with HIV-1 and/orHIV-2. Nonreactive results in this assay for individualswith prior exposure to HIV-1 and/or HIV-2 may be due toantigen and antibody levels that are below the limit ofdetection of this assay.The Free Flow Power HIV Ag/Ab Combo assay result andsupplemental assay results should be interpreted inconjunction with the patient's clinical presentation,history and other laboratory results. If the results areinconsistent with clinical evidence, additional testing issuggested to confirm the result. Blood Venous blood specimen / Unknown 12/20/2023 9:03 AM EDT 12/20/2023 9:03 AM EDT us Claire Emanuel MD LAB BLOOD ORDERABLES Final Re sult [facility] [address] [place] [phone] * Lipid Panel, Standard (12/20/2023 9:03 AM EDT) Triglycerides 48 <150 mg/dL [facility] Comment:Desirable Triglyceri de: less than 150 mg/dLBorderline High Triglyceride 150-199 mg/dLHigh Triglyceride: 200-499 mg/dLVery High Triglyceride: greater than or equal to 5OO mg/dL Cholesterol 103 <200 mg/dL [facility] Comment:Desirable Cholestero l: less than 200 mg/dLBorderline High Cholesterol: 200-239 mg/dLHigh Cholesterol: greater than 239 mg/dL LDL Cholesterol Calculated 49 <100 mg/dL [facility] Comment:Desirable LDL: less than 100 mg/dLNear Optimal/Above Optimal LDL: 110- 129 mg/dLBorderline High LDL: 130-159 mg/dLHigh LDL: 160-189 mg/dLVery High LDL: greater than or equal to 190 mg/dL HDL Cholesterol 45 >40 mg/dL [facility] Comment:Desirable HDL: great er than 40 mg/dL Note: This HDL assay may give artificially low results in patients with liver disease. Blood Venous blood specimen / Unknown 12/20/2023 9:03 AM EDT 12/20/2023 9:03 AM EDT us Claire Emanuel MD LAB BLOOD ORDERABLES Final Re sult [facility] [address] [place] [address] [phone] * Cologuard?? colon cancer screening (12/31/2022 7:39 PM EST) Cologuard Result Negative Negative 01/11/20 11:29 PM EST [facility] [employer] (CLIA #:[id number]) Comment: NEGATIVE TEST RESULT. A negative Cologuard result indicates a low likelihood that a colorectal cancer (CRC) or advanced adenoma (adenomatous polyps with more advanced pre-malignant features) ??is present. The chance that a person with a negative Cologuard test has a colorectal cancer is less than 1 in 1500 (negative predictive value >99.9%) or has an ??advanced adenoma is less than ??5.3% (negative predictive value 94.7%). These data are based on a prospective cross-sectional study of 10,000 individuals at average risk for colorectal cancer who were screened with both Cologuard and colonoscopy. (Daniel Otto al, N Engl J Med 2014;370(14):1286- 1297) The normal value (reference range) for this assay is negative. COLOGUARD RE-SCREENING RECOMMENDATION: Periodic colorectal cancer screening is an important part of preventive healthcare for asymptomatic individuals at average risk for colorectal cancer. ??Following a negative Cologuard result, the [place] [employer] Society and U.S. Multi-Society Task Force screening guidelines recommend a Cologuard re-screening interval of 3 years. References: [place] [employer] Guideline for Colorectal Cancer Screening: https://www.cancer.org/cancer/tkxkv-qeoqwn-ybpzku/qxowuvrdr-osopjljye-mhrlnzu/ac s-rec ommendations.html.; Thomas DK, Carley CR, Arlyn WatkinsK, Colorectal Cancer Screening: Recommendations for Physicians and Patients from the U.S. Multi-Society Task Force on Colorectal Cancer Screening , Am J Gastroenterology 2017; 112:9837-6934. TEST DESCRIPTION: Composite algorithmic analysis of stool DNA-biomarkers with hemoglobin immunoassay. ?? Quantitative values of individual biomarkers are not reportable and are not associated with individual biomarker result reference ranges. Cologuard is intended for colorectal cancer screening of adults of either sex, 45 years or older, who are at average-risk for colorectal cancer (CRC). Cologuard has been approved for use by the U.S. FDA. The performance of Cologuard was established in a cross sectional study of average-risk adults aged 50-84. Cologuard performance in patients ages 45 to 49 years was estimated by sub-group analysis of near-age groups. Colonoscopies performed for a positive result may find as the most clinically significant lesion: colorectal cancer [4.0%], advanced adenoma (including sessile serrated polyps greater than or equal to 1cm diameter) [20%] or non- advanced adenoma [31%]; or no colorectal neoplasia [45%]. These estimates are derived from a prospective cross-sectional screening study of 10,000 individuals at average risk for colorectal cancer who were screened with both Cologuard and colonoscopy. (Daniel Miller et al, N Engl J Med 2014;370(14):8600-5692.) Cologuard may produce a false negative or false positive result (no colorectal cancer or precancerous polyp present at colonoscopy follow up). A negative Cologuard test result does not guarantee the absence of CRC or advanced adenoma (pre-cancer). The current Cologuard screening interval is every 3 years. ([place] [employer] and U.S. Multi-Society Task Force). Cologuard performance data in a 10,000 patient pivotal study using colonoscopy as the reference method can be accessed at the following location: www.[employer]/results. Additional description of the Cologuard test process, warnings and precautions can be found at www.[employer].com. Stool specimen (specimen) 12/31/2022 7:39 PM EST 01/02/2023 7:19 PM EST us Claire Emanuel MD LAB MOLECULAR DIAGNOSTICS ORD ERABLES Final Result [facility] (CLIA #:[id number]) [place] [address], * Hepatitis C Antibody with Reflex to HCV, RNA, Quantitative, Real-Time PCR (10/22/2022 3:29 PM EDT) Hepatitis C Antibody Nonreactive Nonreactive [facility] Comment:Antibodies to HCV no t detected; does not exclude early acuteHCV infection. Blood Venous blood specimen / Unknown 10/22/2022 3:29 PM EDT 10/22/2022 5:35 PM EDT us Raad Nava MD LAB BLOOD ORDERABLES Final Result Performing Organization Address City/[facility]/ZIP Co de Phone Number [facility] [address] [place] [phone] from Last 3 Months or Most Recently Relevant to Health Maintenance [place] [address] , [address] [place] [address] DENTAL [place] [address] Care Teams Quality Compliance Coordinator Relationship Specialty Start Date End Date Claire Emanuel MD [address] [place] [phone] PCP - General Family Medicine 11/10/20
--- OUTSIDE RECORDS SUMMARY | 2024-04-09 12:07 | XMS_ITS | Encounter Summary ---
Author Organization [employer] Address [address] [facility] 7t [place] [address] Care Team Providers Care Color Room Attendant Name Role Phone Claire Emanuel MD Primary Care Provider [phone] Encounter Details Date Type Department Care Team (Late st Contact Info) Description 04/09/2024 9:40 AM EST Office Visit [facility] MED & PEDS [address] [place] [address] Rosie Mcgee MD [address] [place] [address] Acute left ankle pain (Primary Dx) Social History Tobacco Use Types Packs/Day Years Used Date Smoking Tobacco: Never Passive Smoke Exposure: Never Smokeless Tobacco: Never Depression Answer Date Recorded Patient Health Questionnaire-9 Score 14 12/18/2023 Patient Health Questionnaire-9 Score 14 12/18/2023 Last PHQ-9: Questionnaire Data Not on file 1 Housing Stability Answer Date Recorded What is your housing situation today? I have jw bridges 12/10/[address] you [...] AM EDT documented as of this encounter Last Filed Vital Signs Vital Sign Reading [...] Mass Index 33.19 04/09/2024 9:43 AM EST documented in this encounter Progress Notes * Rosie Mcgee MD - 04/09/2024 9:40 AM EST Subjective Patient ID: Cali Juan is a 58 y.o. male who presents for No chief complaint on file.. Ankle Pain There was no injury mechanism. The pain is present in the left ankle. The pain is at a severity of 6/10. The pain is moderate. The pain has been Constant since onset. Associated symptoms include an inability to bear weight. The symptoms are aggravated by movement and weight bearing. He has tried ice and non-weight bearing for the symptoms. The treatment provided mild relief. Review of Systems Constitutional: Negative. Respiratory: Negative. Cardiovascular: Negative. Gastrointestinal: Negative. Genitourinary: Negative. Objective Physical Exam Constitutional: Appearance: Normal appearance. Cardiovascular: Rate and Rhythm: Normal rate and regular rhythm. Pulmonary: Effort: Pulmonary effort is normal. Breath sounds: Normal breath sounds. Musculoskeletal: Left ankle: Swelling present. Tenderness present. Neurological: General: No focal deficit present. Mental Status: He is alert. Psychiatric: Mood and Affect: Mood normal. Behavior: Behavior normal. Assessment/Plan Diagnoses and all orders for this visit: Acute left ankle pain Comments: Started On Ibuprofen and Flexeril Xarys ordered Advised leg elevation and warm compress F/U according to results Orders: - XR Ankle 2 Views Left; Future Other orders - cyclobenzaprine (Flexeril) 10 MG tablet; Take 1 tablet (10 mg) by mouth 3 times daily for 10 days. - ibuprofen 800 MG tablet; Take 1 tablet (800 mg) by mouth 3 times daily. documented in this encounter Plan of Treatment Scheduled Orders Name Type Priority Associated Diagnoses Orde r Schedule XR Ankle 2 Views Left Imaging Routine Acute left ankle pain Expected: 04/09/2024, Expires: 04/09/2025 documented as of this encounter Visit Diagnoses Diagnosis Acute left ankle pain- Primary documented in this encounter Additional Health Concerns Assessment Noted Time PHQ-9 Depression Total Score: 14 024 2:01 PM EDT documented as of this encounter Care Teams Color Room Attendant Relationship Specialty Start Date End Date Claire Emanuel MD [address] [place] [address] PCP - General Family Medicine 11/10/20 documented as of this encounter
--- OUTSIDE RECORDS SUMMARY | 2024-04-09 12:07 | XMS_ITS | Encounter Summary ---
Author Organization [employer] Address [address] [facility] [address] [place] [address] Care Team Providers Care Casing In Line Setter Name Role Phone Claire Emanuel MD Primary Care Provider [phone] Encounter Details Date Type Department Care Team (Late st Contact Info) Description 01/01/2023 Abstract [facility] MEDICINE [address] [place] [address] Claire Emanuel MD [address] [place], [place] [phone] Social History Tobacco Use Types Packs/Day Years Used Date Smoking Tobacco: Never Smokeless Tobacco: Never Depression Answer Date Recorded Patient Health Questionnaire-9 Score 0 10/14/2022 Housing Stability Answer Date Recorded What is your housing situation today? I have jw bridges 12/13/[address] you li ve. Do you have problems with any of the following? None of the above 12/13/2022 Food Insecurity Answer Date Recorded Within the past 12 months, y ou worried that your food would run out before you got money to buy more: Never True 12/13/2022 Within the past 12 months,th e food you bought just didn't last and you didn't have enough money to get more: Never True Transportation Answer Date Recorded In the past 12 months, has l ack of transportation kept you from medical appts, meetings, work or from getting things needed for daily living? No 12/13/2022 Utilities Answer Date Recorded In the past 12 months, has t he electric, gas, oil or water company threatened to shut off services in your home? No 12/13/2022 Depression Answer Date Recorded Patient Health Questionnaire-2 Score 0 10/14/2022 Sex and Gender Information Value Date Recorded Sex Assigned at Male 12/17/2021 10:17 AM EDT Legal Sex Male 10:17 AM EDT Gender Identity Male 12/17/2021 10:17 AM EDT Sexual Orientation Straight 12/17/2021 10 :17 AM EDT documented as of this encounter Plan of Treatment Not on file documented as of this encounter Visit Diagnoses Not on filedocumented in this encounter Additional Health Concerns Assessment Noted Time PHQ-9 Depression Total Score: 0 10/15/19 23 2:48 PM EDT documented as of this encounter Care Teams Casing In Line Setter Relationship Specialty Start Date End Date Claire Emanuel MD [address] [place] [phone] PCP - General Family Medicine 11/10/20 documented as of this encounter
--- OUTSIDE RECORDS SUMMARY | 2024-04-09 12:07 | XMS_ITS | Encounter Summary ---
Author Organization [employer] Address [address] [facility] [address] [place] [address] Care Team Providers Care Sludge Filtration Attendant Name Role Phone Claire Emanuel MD Primary Care Provider [phone] Reason for Visit * Reason Onset Date Comments Nurse Triage 04/09/2024 Encounter Details Date Type Department Care Team ([facility] st Contact Info) Description 04/09/2024 Telephone [facility] [address] [place] [address] Claire Emanuel MD [address] [place] [address] Nurse Triage Social History Tobacco Use Types Packs/Day Years [...] AM EDT documented as of this encounter Miscellaneous Notes * Telephone Encounter - Gabby ValeraPRETTY - 04/09/2024 8:49 AM EST Triage call returned to patient who reports swelling of left foot. No injury and no discoloration or change in temp. Patient reports that he had been shoveling earlier in the week and has low back sciatic type pain and pain into foot as well. Patient is using crutches for ambulation / support. No swelling of other foot. Has used topical Diclofanac and with little relief of discomfort. No loss of bowel or bladder and no reported numbness. Disposition reviewed and No PCP appts. ASK/CHC/SDC/ at 940am. Multiple (2) protocols were used on this call. Disposition for Call: See in Office or Video Visit Today Protocol Used: Leg Swelling and Edema (Adult) Protocol-Based Disposition: See in Office or Video Visit Today Video visit offer not recorded Positive Triage Question: * Patient wants to be seen * All higher-acuity triage questions were negative Care Advice Discussed: * Reasons To Call Back - You become worse Protocol Used: Back Pain (Adult) Protocol-Based Disposition: See in Office or Video Visit within 3 Days Video visit not offered Positive Triage Questions: * Moderate back pain (e.g., interferes with normal activities) and present > 3 days * Pain radiates into the thigh or further down the leg * Patient wants to be seen * All higher-acuity triage questions were negative Care Advice Discussed: * Continue Activity * Pain Medicines * Reasons To Call Back - Pain becomes worse - You become worse * Telephone Encounter - Adwoa Moreno - 04/09/2024 8:35 AM EST Symptom: Leg Swelling - Not From Injury Outcome: Schedule an urgent appointment (within 1 hour) or talk to a nurse or provider soon Reason: Leg swelling on one side only The caller accepted this outcome. documented in this encounter Plan of Treatment Not on file documented as of this encounter Visit Diagnoses Not on filedocumented in this encounter Additional Health Concerns Assessment Noted Time PHQ-9 Depression Total Score: 14 024 2:01 PM EDT documented as of this encounter Care Teams Sludge Filtration Attendant Relationship Specialty Start Date End Date Claire Emanuel MD [address] [place] [id number] PCP - General Family Medicine 11/10/20 documented as of this encounter
--- OUTSIDE RECORDS SUMMARY | 2024-04-09 12:07 | XMS_ITS | Encounter Summary ---
Author Organization [employer] | [employer] Address [address] [facility] [address] [place] [address] Care Team Providers Care Industrial Relations Analyst Name Role Phone Claire Emanuel MD Primary Care Provider [phone] Reason for Visit * Reason Onset Date Comments Referral 12/13/2022 Encounter Details Date Type Department Care Team ([facility] Contact Info) Description 12/13/2022 Telephone [facility] [address] [place] [address] Claire Emanuel MD [address] [place] [address] Referral Social History Tobacco Use Types Packs/Day Years Used Date Smoking Tobacco: Never Smokeless Tobacco: Never Depression Answer Date Recorded Patient Health Questionnaire-9 Score 0 10/14/2022 Housing Stability Answer Date Recorded What is your housing situation today? I have jwk[place] bridges 12/13/[address] you [...] encounter Miscellaneous Notes * Telephone Encounter - Gracia Moreno - 12/16/2022 2:47 PM EDT Referral re faxed to [facility] gastro. * Telephone Encounter - Carolee Maya - 12/13/2022 1:53 PM EDT Tc from pt requesting for referral to gastroenterology to be re sent. Pt called office and was advised they have not received referral. documented in this encounter Plan of Treatment Not on file documented as of this encounter Visit Diagnoses Not on filedocumented in this encounter Additional Health Concerns Assessment Noted Time PHQ-9 Depression Total Score: 0 10/15/19 23 2:48 PM EDT documented as of this encounter Care Teams Industrial Relations Analyst Relationship Specialty Start Date End Date Claire Emanuel MD [address] [place] [address] PCP - General Family Medicine 11/10/20 documented as of this encounter"
--- OUTSIDE RECORDS SUMMARY | 2024-04-09 12:07 | XMS_ITS | Encounter Summary ---
Author Organization [employer] Address [address] [facility] [address] [place] [address] Care Team Providers Care Clinical Informatics Educator Name Role Phone Claire Emanuel MD Primary Care Provider [phone] Encounter Details Date Type Department Care Team (Latest Contact Info) Description 04/09/2024 Travel Social History Tobacco Use Types Packs/Day Years [...] documented as of this encounter Care Teams Clinical Informatics Educator Relationship Specialty Start Date End Date Claire Emanuel MD [address] [place] [address] PCP - General Family Medicine 11/10/20 documented as of this encounter
== END 2024-04-09 11:00 | disposition home or self-care (01) ==
LOC: HO.HHCX 10:59
PROVIDERS: Visit Provider Student in an Organized Health Care Education/Training Program
DX: M25.572 Pain in left ankle and joints of left foot (principal)
CPT/HCPCS: 73610

== ENCOUNTER → 2024-04-09 11:01 | Outpatient (BNV) | payer OTHER, SELFPAY | PROVIDERS: Visit Provider Radiology Diagnostic Radiology | DX: M25.572 Pain in left ankle and joints of left foot (principal) | CPT/HCPCS: 73610 ==

== ENCOUNTER 2024-05-03 15:15 | Outpatient (REF) | payer OTHER, SELFPAY ==
[2024-05-03 17:25] LABS: Urine Cytology See Pathology rpt
[2024-05-03 18:28] LABS: Appearance Urine Clear; Color Urine Yellow; Glucose Urine UA Negative (Negative); Leukocyte Esterase Urine Negative (Negative); Nitrite Urine Negative (Negative); Specific Gravity - Urine 1.015 (1.005-1.025); Urine Blood Negative (Negative); Urine Ketones Negative (Negative); Urine Protein Negative (Neg-Trace)
== END 2024-05-03 15:16 | disposition home or self-care (01) ==
LOC: HO.CHCLNP 15:15
PROVIDERS: Visit Provider Pediatrics
DX: M54.40 Lumbago with sciatica, unspecified side (principal); R31.29 Other microscopic hematuria
CPT/HCPCS: 81003; 88112

== ENCOUNTER 2024-08-12 15:17 | Outpatient (REF) | payer OTHER, SELFPAY ==
--- NOTE | ~2024-08-12 | XR_ITS ---
EXAMINATION: Lumbar spine 4 views. CLINICAL INDICATION: Low back pain. COMPARISON: Lumbar spine x-ray 08/08/2014. TECHNIQUE: 5 views. FINDINGS: There is normal lumbar lordosis. The vertebral heights, alignment and disc heights are normal. On oblique views there is no pars defect or listhesis. No lytic or sclerotic process seen. XR/XR lumbar spine 4V min IMPRESSION: Unremarkable lumbar spine examination Electronically signed by: Ruslan Tyler MD 08/13/2024 07:25 AM EDT
[2024-08-12 15:55] LABS: MANUAL DIFF FLAG NO
[2024-08-12 16:15] LABS: Basophils Absolute Auto 0.1 X10*3/uL (0.0-0.2); Basophils Percent Auto 0.7 % (0-2); Eosinophils Absolute Auto 0.2 X10*3/uL (0.0-0.4); Eosinophils Percent Auto 3.3 % (0-4); Hematocrit 43.7 % (42.0-52.0); Imm Gran Abs Auto 0.02 X10*3/uL (0.00-0.03); Imm Gran Pct Auto 0.3 % (0.0-0.4); Lymphocytes Absolute Auto 2.3 X10*3/uL (1.2-4.9); Lymphocytes Percent Auto 31.3 % (20-40); Mean Corpuscular Hemoglobin 26.4 pg (27.0-33.0); Mean Corpuscular Volume 82.5 fL (80.0-98.0); Mean Platelet Volume 10.4 fL (9.4-12.4); Monocytes Absolute Auto 0.7 X10*3/uL (0.1-1.2); Monocytes Percent Auto 9.9 % (2-11); Neutrophils Percent Auto 54.5 % (45-73); Platelet Count 358 X10*3/uL (160-400); Red Cell Distribution Width 14.6 % (11.0-16.0); White Blood Count 7.4 X10*3/uL (4.8-10.8)
[2024-08-12 16:38] LABS: Rheumatoid Factor 24.4 IU/mL (<15.0)
[2024-08-12 16:39] LABS: Alanine Aminotransferase 48 U/L (0-40); Albumin Level 4.3 g/dL (3.5-5.0); Alkaline Phosphatase 70 U/L (39-117); Anion Gap 12 (12-20); Aspartate Amino Transferase 28 U/L (5-37); Bilirubin Total 0.8 mg/dL (0.0-1.0); Blood Urea Nitrogen 12 mg/dL (9-16); C Reactive Protein 1.97 mg/dL (< or = 0.50); Calcium 9.8 mg/dL (8.4-10.2); Carbon Dioxide 25 mmol/L (22-29); Chloride 109 mmol/L (96-108); Estimated Glomerular Filt Rate > 60; Glucose Random 88 mg/dL (60-115); Potassium 3.9 mmol/L (3.3-5.1); Sodium 142 mmol/L (135-145); Total Protein 7.3 g/dL (6.5-8.0); Uric Acid 5.3 mg/dL (3.4-7.0)
[2024-08-12 16:48] LABS: Appearance Urine Clear; Color Urine Dark Yellow; Glucose Urine UA Negative (Negative); Leukocyte Esterase Urine Negative (Negative); Nitrite Urine Negative (Negative); PH 5.5 (5.0-9.0); Specific Gravity - Urine 1.025 (1.005-1.025); Urine Blood Negative (Negative); Urine Ketones Trace mg/dL (Negative); Urine Protein Negative (Neg-Trace)
[2024-08-12 16:51] LABS: Bacteria Urine None Seen (None Seen); Hyaline Casts Urine 0-2 /LPF (0-2); RBC Urine 0-2 /HPF (0-2); Squamous Epithelial Cell Urine 0-2 /HPF (0-2); WBC Urine 0-5 /HPF (0-5)
[2024-08-12 17:13] LABS: PSA,Total (Free>4and<10) 2.85 ng/mL (0.00-4.00)
[2024-08-12 17:21] LABS: Erythrocyte Sedimentation Rate 8 MM/HR (0-15)
[2024-08-16 10:50] LABS: Anti Nuclear Antibody Screen NEGATIVE (NEGATIVE)
[2024-08-16 16:33] LABS: Testosterone, Free 29.1 pg/mL (35.0-155.0); Testosterone, Total 159 ng/dL (250-1100)
[2024-08-17 19:24] LABS: Cyclic Citrullinated Peptide <16 UNITS
== END 2024-08-12 15:18 | disposition home or self-care (01) ==
LOC: HO.LAB 15:17
PROVIDERS: PCP Family Medicine; Visit Provider Family Medicine
DX: M54.50 Low back pain, unspecified (principal); R39.9 Unspecified symptoms and signs involving the genitourinary system; M25.50 Pain in unspecified joint; Z12.5 Encounter for screening for malignant neoplasm of prostate
CPT/HCPCS: 36415; 72110; 80053; 81001; 84153; 84402; 84403; 84550; 85025; 85652; 86038; 86140; 86200; 86431

== ENCOUNTER → 2024-08-12 16:09 | Outpatient (BNV) | payer OTHER, SELFPAY | PROVIDERS: PCP Family Medicine; Visit Provider Radiology Diagnostic Radiology | DX: M54.50 Low back pain, unspecified (principal) | CPT/HCPCS: 72110 ==

== ENCOUNTER 2024-08-23 16:22 | Outpatient (REF) | payer OTHER, SELFPAY ==
--- OUTSIDE RECORDS SUMMARY | 2024-08-23 16:25 | XMS_ITS | Clinical Summary ---
Author Organization [employer] Address [address] [facility] [address] [place] [address] Care Team Providers Care Scoop Filler Name Role Phone Claire Emanuel MD Primary Care Provider [phone] Allergies No known active allergies Medications cyclobenzaprine (Flexeril) 10 MG tablet Take 1 tablet (10 mg) by mouth 3 times daily for 10 days. 30 tablet 04/09/2024 Active diclofenac (Cataflam) 50 MG tablet Take 1 tab 3 times daily x 5 days then as needed 30 tablet 07/05/2024 Active meloxicam (Mobic) 15 MG tablet Take 1 tablet by mouth Once per day. 05/24/2024 Active Active Problems Problem Noted Date Diagnosed Date Lower urinary tract symptoms 08/03/2024 Assessment & Plan (08/03/2024 8:30 AM EDT): Patient reports urinary urgency, especially when approaching a restroom, and interrupted urinary stream. These symptoms suggest possible benign prostatic hyperplasia (BPH) or other lower urinary tract issues. Previous urinalysis was negative for infection. Plan: - Order urinalysis to rule out infection - Consider prescribing Flomax (tamsulosin) if symptoms persist after urinalysis results - Recommended to mention to his urologist for further evaluation of LUTS Polyarthralgia 08/03/2024 Assessment & Plan (08/03/2024 8:31 AM EDT): Patient reports generalized inflammation and joint pain. Given the persistent symptoms and lack of clear etiology, an autoimmune condition is being considered as a possible underlying cause. 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 Physical examination revealed tenderness in the sacroiliac joint and positive piriformis sign. The pain is exacerbated by certain movements and positions. Patient reports the pain intensifies after prolonged sitting or working. Previous physical therapy was beneficial. Plan: - Refer to physical therapy for piriformis syndrome - Recommend use of tennis ball for muscle softening exercises - Order lumbar and sacroiliac joint imaging to assess for inflammation - If symptoms persist, consider referral to orthopedics - Follow up in 2 months to reassess symptoms and treatment efficacy Assessment & Plan (04/18/2022 7:46 PM EST): Patient with paraspinal spasms, right sided SI anterior rotation and leg discrepancies in medial malleoulus. At this point will rx muscle relaxer, reports using home NSAIDs prn, declined other rx's. Will send X ray Obesity 02/04/2018 Assessment & Plan (12/18/2023 2:19 PM EDT): Discussed calorie deficit, recommended reduction of 20-30% of maintenance calories; movement therapist referral offered. Recommended to decrease soda and sugary beverage consumption. Recommended at least 20 g per meal of protein to assist with satiety. Recommended at least 150 min/week of moderate intensity exercise. Assessment & Plan (03/12/2023 4:02 PM EST): Discussed calorie deficit, recommended reduction of 20-30% of maintenance calories; movement therapist referral offered. Recommended to decrease soda and [...] of Seborrheic Keratosis will be referred to [facility] Derm Skin. In addition, patient will be scheduled an appointment with provider Acute pain of left knee 04/18/202211/19 Cough 04/18/2022 12/18/2023 Assessment & Plan (04/18/2022 7:47 PM EST): Allergic vs viral URI, recommended supportive care. Normal lung exam. RTC if worsening or no improvement. Rapid testing negative, PCR sent out Urological disorder 02/04/2018 12/18/19 24 Encounters Date Type Department Care Team Description 08/19/2024 Results Follow-Up [facility] [address] [place] [address] Claire Emanuel MD XR Lumbar Spine Complete 4+ Views, Testosterone, Free (Dialysis) And Total, MS, Comprehensive Metabolic Panel, Additional followed-up results: 9 08/02/2024 3:45 PM EDT Office Visit [facility] [address] [place] [address] Claire Emanuel MD Low back pain at multiple sites (Primary Dx); Lower urinary tract symptoms; Polyarthralgia 08/02/2024 Travel 07/30/2024 Telephone [facility] [address] [place] [address] Claire Emanuel MD Chart Prep 07/22/[address] [facility] [address] [place] [address] Claire Emanuel MD Pre-visit Planning (SDOH screening negative and Tobacco screening negative) 07/05/2024 2:30 PM EDT Office Visit [facility] [address] [place] [address] Tristin Erickson MD Acute midline low back pain, unspecified whether sciatica present (Primary Dx) 07/05/2024 Travel 07/05/[address] [facility] [address] [place] [phone] Claire Emanuel MD Nurse Triage from Last 3 Months Immunizations Immunization Administration Dates Next Due Tdap 10/24/2015 Social [...] your housing situation today? I have jw rbidges 12/10/[address] you li [...] Sign Reading Time Taken Comments Blood Pressure 135/81 08/02/2024 3:35 PM EDT Pulse 68 08/02/2024 3:35 PM EDT Temperature 36.8 C (98.3 F) 08/02/2024 3:35 PM EDT Respiratory Rate 18 08/02/2024 3:35 PM EDT Oxygen Saturation 98% 08/02/2024 3:35 PM EDT Inhaled Oxygen Concentration - - Weight 93 kg (205 lb) 08/02/2024 3:35 PM EDT Height 167.6 cm (5' 6 ) 08/02/2024 3:35 PM EDT Body Mass Index 33.09 08/02/2024 3:35 PM EDT Plan of Treatment Health Maintenance Due Date Last Done Comments CT Colonography 1965 Colonoscopy 1965 Dental Oral Exam 1965 Dental X-Ray: Bitewings 1965 Dental X-Ray: Full Mouth 1965 FIT 1965 FOBT 1965 Sigmoidoscopy 1965 Disability Screening 1965 Dental Prophylaxis 07/23/2022 01/21/2022 Depression Monitoring 06/16/2024 12/18/2023, 024 Influenza Vaccine (#1) 2024 Alcohol/Substance Use Screening 12/17/2024 12/18/2023 COVID-19 Vaccine (25 season) 2024 03/05/2021, 08/02/2020, 07/05/2020 Postponed from 10/19/2023 (Patient Refused) Zoster Vaccines (1 of 2) 12/17/2024 Pos tponed from 2015 (Patient Refused) SDOH Screening 07/22/2025 07/22/2024 Pneumococcal Vaccine: 50+ Years (1 of 1 - PCV) 08/02/2025 Postponed from 2015 (Patient Refused) Tobacco Screening 08/03/2025 08/03/2024 DTaP/Tdap/Td Vaccines (2 - Td or Tdap) [...] patient's age to complete this topic Meningococcal B Vaccine Aged Out No l onger eligible based on patient's age to complete [...] Procedure Name Priority Date/Time Associated Diagnosis Comments XR LUMBAR SPINE COMPLETE 4+ VIEWS Routine 08/12/2024 4:12 PM EDT Low back pain at multiple sites BETHANY SCREEN, IFA, W/REFL TITER AND PATTERN Routine 08/12/2024 3:52 PM EDT Polyarthralgia CYCLIC CITRULLINATED PEPTIDE (CCP) AB (IGG) Routine 08/12/2024 3:52 PM EDT Polyarthralgia RHEUMATOID FACTOR Routine 08/12/2024 3:5 2 PM EDT Polyarthralgia SED RATE BY MODIFIED WESTERGREN Routine 08/12/2024 3:52 PM EDT Polyarthralgia C-REACTIVE PROTEIN Routine 08/12/2024 3: 52 PM EDT Polyarthralgia CBC WITH AUTO DIFFERENTIAL Routine 08/12/2024 3:52 PM EDT Polyarthralgia URIC ACID Routine 08/12/2024 3:52 PM EDT Low back pain at multiple sites PSA, TOTAL WITH REFLEX TO PSA, FREE Routine 08/12/2024 3:52 PM EDT Low back pain at multiple sites COMPREHENSIVE METABOLIC PANEL Routine 08/12/2024 3:52 PM EDT Low back pain at multiple sites TESTOSTERONE, FREE (DIALYSIS) AND TOTAL,MS Routine 08/12/2024 3:52 PM EDT Low back pain at multiple sites URINALYSIS, COMPLETE, WITH REFLEX TO CULTURE Routine 08/12/2024 3:45 PM EDT Lower urinary tract symptoms HIV 1/2 ANTIGEN/ANTIBODY, FOURTH GENERATION W/RFL Routine 12/20/2023 9:03 AM EDT Annual physical exam LIPID PANEL, STANDARD Routine 12/20/2023 9:03 AM EDT Class 1 obesity with body mass index (BMI) of 32.0 to 32.9 in adult, unspecified obesity type, unspecified whether serious comorbidity present LAB COLOGUARD COLON CANCER SCREEN Routine 12/31/2022 7:39 PM EST Colon cancer screening HEPATITIS C AB W/REFL TO HCV RNA, QN, PCR Routine 10/22/2022 3:29 PM EDT Right upper quadrant abdominal pain PROPHYLAXIS - ADULT Routine 01/21/2022 4 :00 PM EST Encounter for dental examination from Last 3 Months or Most Recently Relevant to Health Maintenance Results * XR Lumbar Spine Complete 4+ Views (08/12/2024 4:12 PM EDT) Anatomical Region Laterality Modality Spine, L-spine Radiographic Tanesha ging 08/12/2024 4:12 PM EDT Narrative 08/13/2024 7:28 AM EDT [place] [address] XRay Report Signed Patient: Cali Juan MR#: [id number] 49 : 1965 Acct:[id number] Age/Sex: 59 / M ADM Date: 08/12/24 Loc: HO.LAB Attending Dr: Claire Emanuel MD Ordering Physician: Claire Emanuel MD Date of Service: 08/12/24 Procedure(s): XR lumbar spine 4V min Accession Number(s): [id number] cc: Claire Emanuel MD EXAMINATION: Lumbar spine 4 views. CLINICAL INDICATION: Low back pain. COMPARISON: Lumbar spine x-ray 08/08/2014. TECHNIQUE: 5 views. FINDINGS: There is normal lumbar lordosis. The vertebral heights, alignment and disc heights are normal. On oblique views there is no pars defect or listhesis. No lytic or sclerotic process seen. XR/XR lumbar spine 4V min IMPRESSION: Unremarkable lumbar spine examination Electronically signed by: Ruslan Tyler MD 08/13/2024 07:25 AM EDT Dictated By: Ruslan Tyler MD Signed By: <Electronically signed by Ruslan Tyler MD in OV> 08/13/24 0725 DD/ 1612 TD/TT: 08/12/24 1622 Energy Consultant: [facility] Procedure Note Donotuseinterpreter, Image - 08/13/[address] [address] XRay Report Signed Patient: Cali Juan AMR#: [id number] 49 : 1965Acct:[id number] Age/Sex: 59 / MADM Date: 08/12/24 Loc: HO.LAB Attending Dr: Claire Emanuel MD Ordering Physician: Claire Emanuel MD Date of Service: 08/12/24 Procedure(s): XR lumbar spine 4V min Accession Number(s): [id number] cc: Claire Emanuel MD EXAMINATION: Lumbar spine 4 views. CLINICAL INDICATION: Low back pain. COMPARISON: Lumbar spine x-ray 08/08/2014. TECHNIQUE: 5 views. FINDINGS: There is normal lumbar lordosis. The vertebral heights, alignment and disc heights are normal. On oblique views there is no pars defect or listhesis. No lytic or sclerotic process seen. XR/XR lumbar spine 4V min IMPRESSION: Unremarkable lumbar spine examination Electronically signed by: Ruslan Tyler MD 08/13/2024 07:25 AM EDT RP Dictated By: Ruslan Tyler MD Signed By: <Electronically signed by Ruslan Tyler MD in OV> 08/13/24 0725 DD/ 1612 TD/TT: 08/12/24 1622 Energy Consultant: [facility] us Claire Emanuel MD IMG XR PROCEDURES Final Resul t * PSA, Total With Reflex to PSA, Free (08/12/2024 3:52 PM EDT) PSA,Total (Free>4and<10) 2.85 0.00 - 4.00 ng/mL [facility] Comment:A Free PSA was not p erformed: The percentage of Free PSA can be used to enhance the differentiation of prostate cancer from benign prostatic disease in subjects whose PSA levels are between 4.0 and 10.0 ng/mL. For subjects whose PSA levels are below 4.0 or above 10.0 ng/mL, the risk of prostate cancer is determined on the basis of the PSA alone. Therefore the % Free PSA is recommended only for those subjects whose PSA levels are between 4.0 and 10.0 ng/mL.PSA methodology: Agudelo Alinity i ChemiluminescentMicroparticle Immunoassay (CMIA) 08/12/2024 3:52 PM EDT 08/12/2024 3:53 PM EDT us Claire Emanuel MD LAB BLOOD ORDERABLES Final Re sult [facility] [address] [place] [address] [phone] * (ABNORMAL) CBC auto differential (08/12/2024 3:52 PM EDT) White Blood Count 7.4 4.8 - 10.8 X10*3/uL [facility] Red Blood Count 5.30 4.60 - 5.80 X10*6/uL [facility] Hemoglobin 14.0 14.0 - 18.0 g/dl [facility] Hematocrit 43.7 42.0 - 52.0 % [facility] Mean Corpuscular Volume 82.5 80.0 - 98.0 fL [facility] Mean Corpuscular Hemoglobin 26.4(L) 27.0 - 33.0 pg [facility] Mean Corpuscular HGB Conc 32.0 31.0 - 36.0 g/dl [facility] Red Cell Distribution Width 14.6 11.0 - 16.0 % [facility] Platelet Count 358 160 - 400 X10*3/uL [facility] Mean Platelet Volume 10.4 9.4 - 12.4 fL [facility] Neutrophils Percent Auto 54.5 45 - 73 % [facility] Imm Gran Pct Auto 0.3 0.0 - 0.4 % [facility] Lymphocytes Percent Auto 31.3 20 - 40 % [facility] Monocytes Percent Auto 9.9 2 - 11 % [facility] Eosinophils Percent Auto 3.3 0 - 4 % [facility] Basophils Percent Auto 0.7 0 - 2 % [facility] NRBC Pct Auto 0.0 0.0 - 0.2 /100WBC [facility] Neutrophils Absolute Auto 4.0 2.0 - 8.3 x10*3/uL [facility] Imm Gran Abs Auto 0.02 0.00 - 0.03 X10*3/uL [facility] Lymphocytes Absolute Auto 2.3 1.2 - 4.9 X10*3/uL [facility] Monocytes Absolute Auto 0.7 0.1 - 1.2 X10*3/uL [facility] Eosinophils Absolute Auto 0.2 0.0 - 0.4 X10*3/uL [facility] Basophils Absolute Auto 0.1 0.0 - 0.2 X10*3/uL [facility] NRBC Abs Auto 0.000 0.0 - 0.012 X10*3/uL [facility] Blood Venous blood specimen / Unknown 08/12/2024 3:52 PM EDT 08/12/2024 3:53 PM EDT Claire Emanuel MD LAB BLOOD ORDERABLES Final Re sult [facility] [address] [place] [phone] * Cyclic Citrullinated Peptide (CCP) Antibody (IgG) (08/12/2024 3:52 PM EDT) Cyclic Citrullinated Peptide <16 UNITS [facility] Comment:Reference RangeNegat raisa: <20Weak Positive: 20-39Moderate Positive: 40-59Strong Positive: >59THIS TEST WAS PERFORMED AT:[facility] [address] [id number] MURILLO MD Blood Venous blood specimen / Unknown 08/12/2024 3:52 PM EDT 08/12/2024 3:53 PM EDT Claire Emanuel MD LAB BLOOD ORDERABLES Final Re sult Performing Organization Address [facility] Co de Phone Number [facility] [address], [place] [phone] * Sed Rate by Modified Alyxren (08/12/2024 3:52 PM EDT) Erythrocyte Sedimentation Rate 8 0 - 15 MM/HR [facility] Comment:Patients with polycy themia and many hemoglobin abnormalitiesmay have depressed sed rates whereas patients with anemiamay have elevated sed rates. Blood Venous blood specimen / Unknown 08/12/2024 3:52 PM EDT 08/12/2024 3:53 PM EDT us Claire Emanuel MD LAB BLOOD ORDERABLES Final Re sult Performing Organization Address [facility] Co de Phone Number [facility] [address] [place] [phone] * (ABNORMAL) Rheumatoid Factor (08/12/2024 3:52 PM EDT) Pathologist [facility] Rheumatoid Factor 24.4(H) <15.0 IU/mL [facility] Blood Venous blood specimen / Unknown 08/12/2024 3:52 PM EDT 08/12/2024 3:53 PM EDT us Claire Emanuel MD LAB BLOOD ORDERABLES Final Re sult Performing Organization Address [facility] Co de Phone Number [facility] [address] [place] [address] [phone] * (ABNORMAL) Testosterone, Free (Dialysis) And Total, MS (08/12/2024 3:52 PM EDT) Pathologist [facility] Testosterone, Total 159(A) 250 - 1100 ng/dL [facility] Comment:For additional infor matscot, please refer tohttp://education.[employer]/faq/[email or web address](This link is being provided for informational/educational purposes only.)This test was developed and its analytical performancecharacteristics have been determined by [employer] [place], [place]. It hasnot been cleared or approved by the U.S. Food and DrugAdministration. This assay has been validated pursuantto the CLIA regulations and is used for clinicalpurposes. Testosterone, Free 29.1(A) 35.0 - 155.0 pg/mL [facility] Comment:This test was develo ped and its analytical performancecharacteristics have been determined by [employer] [place], [place]. It hasnot been cleared or approved by the U.S. Food and DrugAdministration. This assay has been validated pursuantto the CLIA regulations and is used for clinicalpurposes.THIS TEST WAS PERFORMED AT:[facility] [place] [address]NGWYXZSWANG PICKARD MD,PHD Blood Venous blood specimen / Unknown 08/12/2024 3:52 PM EDT 08/12/2024 3:53 PM EDT Claire Emanuel MD LAB BLOOD ORDERABLES Final Re sult Performing Organization Address [facility]/ZIP Co de Phone Number [facility] [address] [place] [phone] * (ABNORMAL) C-reactive Protein (08/12/2024 3:52 PM EDT) C Reactive Protein 1.97(H) < or = 0.50 mg/dL [facility] Blood Venous blood specimen / Unknown 08/12/2024 3:52 PM EDT 08/12/2024 3:53 PM EDT Claire Emanuel MD LAB BLOOD ORDERABLES Final Re sult Performing Organization Address [facility]/ZIP Co de Phone Number [facility] [address] [place] [phone] * BETHANY Screen,IFA, with Reflex to Titer and Pattern (08/12/2024 3:52 PM EDT) Anti Nuclear Antibody Screen NEGATIVE NEGATIVE [facility] Comment:BETHANY IFA is a first l ine screen for detecting thepresence of up to approximately 150 autoantibodies invarious autoimmune diseases. A negative BETHANY IFA resultsuggests an BETHANY-associated autoimmune disease is notpresent at this time, but is not definitive. If thereis high clinical suspicion for Sjogren's syndrome,testing for anti-SS-A/Ro antibody should be considered.Anti-Lucie-1 antibody should be considered for clinicallysuspected inflammatory myopathies.AC-0: NegativeInternational Consensus on BETHANY Patterns(https://doi.org/10.1515/hycr-4754-7132)For additional information, please refer tohttp://education.[employer]/faq/FQQ692(This link is being provided for informational/educational purposes only.)THIS TEST WAS PERFORMED AT:[facility] [place] [id number] MURILLO MD BETHANY Titer TNP [facility] BETHANY Pattern [facility] BETHANY TITER 2 (REF LAB) [facility] BETHANY Pattern 2 [facility] BETHANY TITER 3 [facility] BETHANY PATTERN 3 [facility] Blood Venous blood specimen / Unknown 08/12/2024 3:52 PM EDT 08/12/2024 3:53 PM EDT us Claire Emanuel MD LAB BLOOD ORDERABLES Final Re sult [facility] [address] [place] [phone] * Uric acid (08/12/2024 3:52 PM EDT) Uric Acid 5.3 3.4 - 7.0 mg/dL [facility] Blood Venous blood specimen / Unknown 08/12/2024 3:52 PM EDT 08/12/2024 3:53 PM EDT us Claire Emanuel MD LAB BLOOD ORDERABLES Final Re sult [facility] [address] [place] [phone] [phone] * (ABNORMAL) Comprehensive Metabolic Panel (08/12/2024 3:52 PM EDT) Sodium 142 135 - 145 mmol/L [facility] Potassium 3.9 3.3 - 5.1 mmol/L [facility] Chloride 109(H) 96 - 108 mmol/L [facility] Carbon Dioxide 25 22 - 29 mmol/L [facility] Anion Gap 12 12 - 20 [facility] Urea Nitrogen (BUN) 12 9 - 16 mg/dL [facility] Creatinine, Serum 0.75 0.5 - 1.4 mg/dL [facility] Estimated Glomerular Filt Rate >60 [facility] Comment:Chronic Kidney Disea se: Estimated GFR < 60 mL/min/1.69f2Otihsi Kidney Disease: Estimated GFR < 15 mL/min/1.73m2 Glucose 88 60 - 115 mg/dL [facility] Calcium 9.8 8.4 - 10.2 mg/dL [facility] Bilirubin, Total 0.8 0.0 - 1.0 mg/dL [facility] Aspartate Amino Transferase 28 5 - 37 U/L [facility] Alanine Aminotransferase 48(H) 0 - 40 U/L [facility] Total Protein 7.3 6.5 - 8.0 g/dL [facility] Albumin Level 4.3 3.5 - 5.0 g/dL [facility] Alkaline Phosphatase 70 39 - 117 U/L [facility] Blood Venous blood specimen / Unknown 08/12/2024 3:52 PM EDT 08/12/2024 3:53 PM EDT us Claire Emanuel MD LAB BLOOD ORDERABLES Final Re sult Performing Organization Address City/[facility]/ZIP Co de Phone Number [facility] [address] [place] [phone] * Urinalysis, Complete, with Reflex to Culture (08/12/2024 3:45 PM EDT) Color Urine Dark Yellow [facility] Appearance Urine Clear [facility] PH 5.5 5.0 - 9.0 [facility] Glucose Urine UA Negative Negative mg/dL [facility] Urine Blood Negative Negative [facility] Specific [place] - Urine 1.025 1.005 - 1.025 [facility] Urine Protein Negative Neg-Trace mg/dL [facility] Urine Ketones Trace Negative mg/dL [facility] Nitrite Urine Negative Negative [facility] Leukocyte Esterase Urine Negative Negative [facility] RBC Urine 0-2 0 - 2 /HPF [facility] Urine WBC 0-5 0 - 5 /HPF [facility] Urine Squamous Epithelial Cell 0-2 0 - 2 /HPF [facility] Urine Bacteria None Seen None Seen [facility] Hyaline Casts, Urine 0-2 0 - 2 /LPF [facility] Urine Urine specimen obtained by clean catch procedure / Unknown 08/12/2024 3:45 PM EDT 08/12/2024 4:14 PM EDT Narrative [facility] - 08/12/2024 5:05 PM EDT [id number], Clean Catch us Claire Emanuel MD LAB URINE ORDERABLES Final Re sult Performing Organization Address [facility] [facility]/ZIP Co de Phone Number [facility] [address] [place] [address] [phone] * HIV-1/2 Antigen and Antibodies, Fourth Generation, with Reflexes (12/20/2023 9:03 AM EDT) HIV AB/AG Nonreactive Nonreactive [facility] Comment:HIV-1 p24 Ag and/or HIV-1/HIV-2 Ab not detected.A test result that is nonreactive does not exclude thepossibility of exposure to or infection with HIV-1 and/orHIV-2. Nonreactive results in this assay for individualswith prior exposure to HIV-1 and/or HIV-2 may be due toantigen and antibody levels that are below the limit ofdetection of this assay.The [employer] HIV Ag/Ab Combo assay result andsupplemental assay results should be interpreted inconjunction with the patient's clinical presentation,history and other laboratory results. If the results areinconsistent with clinical evidence, additional testing issuggested to confirm the result. Blood Venous blood specimen / Unknown 12/20/2023 9:03 AM EDT 12/20/2023 9:03 AM EDT us Claire Emanuel MD LAB BLOOD ORDERABLES Final Re sult [facility] [address] [place] [phone] * Lipid Panel, Standard (12/20/2023 9:03 AM EDT) Triglycerides 48 <150 mg/dL [facility] Comment:Desirable Triglyceri de: less than 150 mg/dLBorderline High Triglyceride 150-199 mg/dLHigh Triglyceride: 200-499 mg/dLVery High Triglyceride: greater than or equal to 5OO mg/dL Cholesterol 103 <200 mg/dL [facility] Comment:Desirable Cholestero l: less than 200 mg/dLBorderline High Cholesterol: 200-239 mg/dLHigh Cholesterol: greater than 239 mg/dL LDL Cholesterol Calculated 49 <100 mg/dL [facility] Comment:Desirable LDL: less than 100 mg/dLNear Optimal/Above Optimal LDL: 110- 129 mg/dLBorderline High LDL: 130-159 mg/dLHigh LDL: 160-189 mg/dLVery High LDL: greater than or equal to 190 mg/dL HDL Cholesterol 45 >40 mg/dL [facility] Comment:Desirable HDL: great er than 40 mg/dL Note: This HDL assay may give artificially low results in patients with liver disease. Blood Venous blood specimen / Unknown 12/20/2023 9:03 AM EDT 12/20/2023 9:03 AM EDT us Claire Emanuel MD LAB BLOOD ORDERABLES Final Re sult [facility] [address] [place] [phone] * Cologuard?? colon cancer screening (12/31/2022 7:39 PM EST) Cologuard Result Negative Negative 01/11/20 11:29 PM EST [facility] (CLIA #:[id number]) Comment: NEGATIVE TEST RESULT. A negative Cologuard result indicates a low likelihood that a colorectal cancer (CRC) or advanced adenoma (adenomatous polyps with more advanced pre-malignant features) is present. The chance that a person with a negative Cologuard test has a colorectal cancer is less than 1 in 1500 (negative predictive value >99.9%) or has an advanced adenoma is less than 5.3% (negative predictive value 94.7%). These data are based on a prospective cross-sectional study of 10,000 individuals at average risk for colorectal cancer who were screened with both Cologuard and colonoscopy. (Daniel Otto al, N Engl J Med 2014;370(14):9497-4531) The normal value (reference range) for this assay is negative. COLOGUARD RE-SCREENING RECOMMENDATION: Periodic colorectal cancer screening is an important part of preventive healthcare for asymptomatic individuals at average risk for colorectal cancer. Following a negative Cologuard result, the [place] [employer] and U.S. Multi-Society Task Force screening guidelines recommend a Cologuard re-screening interval of 3 years. References: [place] [employer] Guideline for Colorectal Cancer Screening: https://www.cancer.org/cancer/kmlxn-hilxqh-czsoyn/wcceoazak-jrbhsaokj-azzktyp/ac s-rec ommendations.html.; Thomas DK, Carley CR, Arlyn WatkinsK, Colorectal Cancer Screening: Recommendations for Physicians and Patients from the U.S. Multi-Society Task Force on Colorectal Cancer Screening , Am J Gastroenterology 2017; 112:9001-5232. TEST DESCRIPTION: Composite algorithmic analysis of stool DNA-biomarkers with hemoglobin immunoassay. Quantitative values of individual biomarkers are not [...] screened with both Cologuard and colonoscopy. (Daniel Mcbride. et al, N Engl J Med 2014;370(14):7802-2238.) Cologuard may produce a false negative or false positive result (no colorectal cancer or precancerous polyp present at colonoscopy follow up). A negative Cologuard test result does not guarantee the absence of CRC or advanced adenoma (pre-cancer). The current Cologuard screening interval is every 3 years. ([place] [employer] and U.S. Multi-Society Task Force). Cologuard performance data in a 10,000 patient pivotal study using colonoscopy as the reference method can be accessed at the following location: www.MYOS.com/results. Additional description of the Cologuard test process, warnings and precautions can be found at www.[employer].rd.com. Stool specimen (specimen) 12/31/2022 7:39 PM EST 01/02/2023 7:19 PM EST us Claire Emanuel MD LAB MOLECULAR DIAGNOSTICS ORD ERABLES Final Result [facility] (CLIA #:[id number]) [place] [address], * Hepatitis C Antibody with Reflex to HCV, RNA, Quantitative, Real-Time PCR (10/22/2022 3:29 PM EDT) Hepatitis C Antibody Nonreactive Nonreactive [facility] Comment:Antibodies to HCV no t detected; does not exclude early acuteHCV infection. Blood Venous blood specimen / Unknown 10/22/2022 3:29 PM EDT 10/22/2022 5:35 PM EDT Raad Nava MD LAB BLOOD ORDERABLES Final Result Performing Organization Address City/[facility]/ZIP Co de Phone Number [facility] [address] [place] [phone] from Last 3 Months or Most Recently Relevant to Health Maintenance Insurance , [address] [place] [address] DENTAL - [employer] [place] [id number] Care Teams Scoop Filler Relationship Specialty Start Date End Date Claire Emanuel MD [address] [place] [phone] PCP - General Family Medicine 11/10/20
--- OUTSIDE RECORDS SUMMARY | 2024-08-23 16:25 | XMS_ITS | Clinical Summary ---
Author Organization [address] Address [address] [place] [address] Phone Care Team Providers Care Plastic Sheets Finishing Supervisor Name Role Phone Pratibha Hoover MD Primary Care Provider + [phone] Surgical History Surgery Date Site/Laterality Comments COLONOSCOPY 2013 PROCEDURE: HISTORICAL COLONOSCOPY ESOPHAGOGASTRODUODENOSCOPY PROCEDURE: [place] ESOPHAGOGASTRODUODENOSCOPY TRANSORAL DIAGNOSTIC Medical History Medical History Date Comments Esophageal reflux DX:Esophageal reflux Anxiety 05/24/2017 DX:Anxiety Depression 05/24/2017 DX:Depression Allergic rhinitis 05/24/2017 DX:Allergic rh initis CTS (carpal tunnel syndrome) 05/24/2017 DX: CTS (carpal tunnel syndrome); COMMENT: left Heel pain, bilateral 02/03/2017 DX:Heel zane n, bilateral Family History Medical History Relation Name Comments No Known Problems Brother No Known Problems Daughter No Known Problems Father Hypertension Mother No Known Problems Sister No Known Problems Son 1 No Known Problems Son 2 No Known Problems Son 3 Relation Name Status Comments Brother Daughter Alive Father Alive Maternal Grandfather Maternal Grandmother Mother Alive Paternal Grandfather Paternal Grandmother Other Sister Son 1 Alive Son 2 Alive Son 3 Alive Social History Tobacco Use Types Packs/Day Years Used Date Smoking Tobacco: Former Smokeless Tobacco: Never Alcohol Use Standard Drinks/Week Comments No 0 (1 standard drink = 0.6 oz pur e alcohol) Sex and Gender Information Value Date Recorded Sex Assigned at Not on file Legal Sex Male 2:26 PM EST Gender Identity Not on file Sexual Orientation Not on file Obstetrics History Plan of Treatment Upcoming Encounters Date Type Department Care Team ([facility] Contact Info) Description 09/07/2024 3:30 PM EDT Evaluation Outpatient [address] [phone] Cornelius Lechuga, MARIN Health Maintenance Due Date Last Done Comments Hepatitis B Vaccines (1 of 3 - 19+ 3-dose series) 1984 Pneumococcal Vaccine: 50+ Ye ars (1 of 1 - PCV) 2015 Zoster Vaccines (1 of 2) 2015 COVID-19 Vaccine (1 - 2023-2 5 season) 2023 Cholesterol Screening (Lipid Panel) 08/11/2024 Colorectal Cancer Screening: Colonoscopy 08/11/2024 Depression Screening 08/11/2024 HIV Screening 08/11/2024 Hepatitis C Screening 08/11/2024 Social Influencers of Health Screening 08/11/2024 Influenza Vaccine (#1) 2024 DTaP,Tdap,and Td Vaccines (2 - Td or Tdap) 10/23/2025 10/24/2015 RSV Immunization Adult Patie nts (1 - 1-dose 75+ series) 2040 HIB Vaccines Aged Out No longer eligi ble based on patient's age to complete this topic HPV Vaccines Aged Out No longer eligi ble based on patient's age to complete this topic Hepatitis A Vaccines Aged Out No long er eligible based on patient's age to complete this topic IPV Vaccines Aged Out No longer eligi ble based on patient's age to complete this topic MMR Vaccines Aged Out No longer eligi ble based on patient's age to complete this topic Meningococcal ACWY Vaccine Aged Out N o longer eligible based on patient's age to complete this topic Meningococcal B Vaccine Aged Out No l onger eligible based on patient's age to complete this topic Pneumococcal Vaccine: Pediat rics (0 to 5 Years) and At-Risk Patients (6 to 49 Years) Aged Out No longer eligi ble based on patient's age to complete this topic RSV Immunization Patients Un galen 20 months Aged Out No longer eligible b ased on patient's age to complete this topic Varicella Vaccines Aged Out No longer eligible based on patient's age to complete this topic Insurance [facility] Care Teams Plastic Sheets Finishing Supervisor Relationship Specialty Start Date End Date Pratibha Hoover MD [address] [place] [phone] PCP - General Internal Medicine 07/07/17
--- OUTSIDE RECORDS SUMMARY | 2024-08-23 16:25 | XMS_ITS | Patient Health Record ---
Author Organization [facility] Address [address] [place] [address] Care Team Providers Care Skip Hoist Operator Name Role Phone Svitlana PEACOCK, Marcelina Primary Care Provider Hansel Salguero Jr, Naveed Unavailable Reason For Referral No Information Medications Medication SIG (Take, Route, Fr equency, Duration) Notes Start Date End Date Status Suprep Bowel Prep 1 as directed Orally 1 for 1 dose 08/13/2013 Active Biaxin 500 MG 1 tablet Orally Twic e a day for 14 days 11/03/2013 Active Amoxicillin 500 MG 2 capsules Orally Tw ice a day for 14 days 11/03/2013 Active Omeprazole 20 MG 1 capsule Orally Once a day 08/13 Active Omeprazole 20 MG 1 capsule Orally Twi ce a day for 14 days 11/03/2013 Active Problems Problem Type SNOMED Code ICD Code Onset Dates Problem Status W/U Status Risk Notes Problem 274219182 Esophageal reflux (530.81) Active confirmed Problem 936293323 Blood in stool (578.1) Active confirmed Plan Of Treatment Future Test Test Name Order Date UPPER GI ENDOSCOPY 08/13/2013 COLONOSCOPY 08/13/2013 Insurance Providers Payer Name Payer Address Payer Phone Subscriber Number Group Number Insured Name Patient Relationship to Insured Coverage Start Date Coverage End Date [facility] [address] [place] [phone] [id number] JENNIFER GIRALDO Self - patient is the insured Medical (General) History Medical History History ICD Code Upper endoscopy, 2003, 2008, GERD Denies [place],DM,CVA,Lung disease,renal dise ase Surgical History Surgery Date(Month/Year) cyst removal
[2024-08-23 17:33] LABS: INTERNATIONAL NORM RATIO 1.0 (0.9-1.1); Prothrombin Time 11.4 SEC (10.9-12.4)
[2024-08-23 17:35] LABS: Hemoglobin A1C 163.4221 umol/L; Partial Thromboplastin Time 30.2 SEC (26.0-36.8); Total Hemoglobin (HGBA1C) 3674.2729 umol/L
[2024-08-23 17:57] LABS: Cholesterol 106 mg/dL (<200); HDL Cholesterol 44 mg/dL (>40); Iron 52 mcg/dL (45-160); Percent Iron Saturation 19 % (15-50); Total Iron Binding Capacity 268 mcg/dL (228-428); Triglycerides 44 mg/dL (<150); Unsaturated Iron Binding 216 ug/dL
[2024-08-23 18:12] LABS: Ferritin 239 ng/mL (20-250)
[2024-08-24 08:17] LABS: HBS Num1 6.75 mIU/mL (0-7.99); HBc Num1 0.07 S/CO (0.00-0.79); HBsAGNum1 0.35 S/CO (0.00-0.99); Hepatitis B Surface Antigen Negative (Negative); ~HepC Num1 0.11 S/CO (0.00-0.79); ~Hepatitis B Surface Antibody NONREACTIVE (Nonreactive); ~Hepatitis C Antibody Nonreactive (Nonreactive)
[2024-08-27 08:07] LABS: Hepatitis A Antibody IgM 0.18 Index (0-0.79); ~Hepatitis A Antibody IgG 2.29 S/CO (0.00-0.99); ~Hepatitis A Antibody IgM Nonreactive (Nonreactive)
== END 2024-08-23 16:23 | disposition home or self-care (01) ==
LOC: HO.LAB 16:22
PROVIDERS: PCP Family Medicine; Visit Provider Family Medicine
DX: R74.01 Elevation of levels of liver transaminase levels (principal); Z13.1 Encounter for screening for diabetes mellitus
CPT/HCPCS: 36415; 80061; 82728; 83036; 83540; 85610; 85730; 86704; 86706; 86708; 86709; 86803; 87340

== ENCOUNTER 2024-09-24 12:53 | Outpatient (REF) | payer OTHER, SELFPAY ==
--- NOTE | ~2024-09-24 | US_ITS ---
EXAMINATION: US ABDOMEN COMPLETE WITH LIVER ELASTOGRAPHY HISTORY: 59 yo M with persistent transaminitis, r/o liver fibrosis send to [facility] TECHNIQUE: Real-time grayscale ultrasound imaging of the abdomen was performed and images were reviewed. COMPARISON: Comparison is made with the prior examination dated 06/27/2016. FINDINGS: Liver: The right lobe of the liver measures 19.2 cm in size. The left lobe of the liver measures 11.2 cm in size. The liver demonstrates increased echotexture, consistent with steatosis. No focal mass or intrahepatic biliary ductal dilatation is identified. There is normal hepatopedal flow in the portal vein. Ultrasound elastography of the liver was performed with 10 separate measurements of the liver parenchyma with the patient in the supine position. Measurements were obtained approximately 2 cm below [place]'s capsule and perpendicular to the capsule. The median shear wave velocity is 0.99 m/s. The interquartile range/median (IQR/median) is 0.16. Gallbladder and biliary tree: The gallbladder is unremarkable, without evidence of calculi, wall thickening, or pericholecystic fluid. There is no sonographic Mcdonald sign. The common bile duct is normal in caliber measuring 4 mm. Kidneys: The right kidney measures 11.8 cm in length. The left kidney measures 12.3 cm in length. The kidneys are unremarkable, without evidence of masses, hydronephrosis, or calculi. Pancreas: The pancreatic head, neck, and body are unremarkable. The pancreatic tail is obscured by bowel gas. Spleen: The spleen is normal in size and contour, measuring 10.5 cm in length. Abdominal aorta and inferior vena cava: The visualized portions of the abdominal aorta and inferior vena cava are normal in caliber. There is no free fluid in the abdomen. US/US abdomen comp w elastography IMPRESSION: Hepatomegaly and hepatic steatosis. The median shear wave velocity in the liver is 0.99 m/s, corresponding to a median liver stiffness of 3.0 kPa. The IQR/median value is 0.16. This is indicative of a quality data set. Findings are indicative of a normal elastography value with a low likelihood of severe fibrosis or cirrhosis. REFERENCE: Society of Radiologists in Ultrasound Liver Stiffness Thresholds (2020): LIVER STIFFNESS THRESHOLDS: *Shear wave velocity less than 1.3 m/s (Liver Stiffness equal or less than 5 kPa): High probability of being normal. *Shear wave velocity less than 1.7 m/s (Liver Stiffness less than 9 kPa): In the absence of other known clinical signs, rules out compensated advanced chronic liver disease. *Shear wave velocity between 1.7-2.1 m/s (Liver Stiffness 9-13 kPa): Suggestive of compensated advanced chronic liver disease but need further test for confirmation. *Shear wave velocity between 2.1-2.4 m/s (Liver Stiffness 13-17 kPa): Rules in compensated advanced chronic liver disease. *Shear wave velocity greater than 2.4 m/s (Liver Stiffness over 17 kPa): Suggestive of clinically significant portal hypertension. QUALITY OF DATA SET: *IQR/Median value equal or less than 0.30 implies a quality data set. *IQR/Median value over 0.30 implies a poor quality data set. SIGNIFICANT CHANGE FROM PRIOR EXAM: Significant change if liver stiffness measurement is 10% or greater from prior exam. OTHER CONSIDERATIONS: The stage of liver fibrosis may be overestimated in the setting of acute hepatitis, liver inflammation, elevated liver function tests, hepatic vascular congestion, obstructive cholestasis, non-fasting state, and infiltrative diseases such as amyloidosis and lymphoma. In some patients with NAFLD, the liver stiffness thresholds for compensated advanced chronic liver disease may be lower. In causes other than viral hepatitis and NAFLD, liver stiffness thresholds are not well established. Electronically signed by: Twin Quintero MD 09/24/2024 01:52 PM EDT
--- OUTSIDE RECORDS SUMMARY | 2024-09-24 12:55 | XMS_ITS | Patient Health Record ---
Author Organization [facility] Address [address] [place] [address] Care Team Providers Care Body Mechanic Apprentice Name Role Phone Svitlana PEACOCK, Marcelina Primary Care Provider Hansel Salguero Jr, Naveed Unavailable [phone] Reason For Referral No Information Medications Medication [...] Problem Status W/U Status Risk Notes Problem [id number] Esophageal reflux (530.81) Active confirmed Problem 256636717 Blood in stool (578.1) Active confirmed Plan Of Treatment Future Test Test Name Order Date UPPER GI ENDOSCOPY 08/13/2013 COLONOSCOPY 08/13/2013 Insurance Providers Payer Name Payer Address Payer Phone Subscriber Number Group Number Insured Name Patient Relationship to Insured Coverage Start Date Coverage End Date [facility] [address] [place] [phone] [id number] JENNIFER GIRALDO Self - patient is the insured Medical (General) History Medical History History ICD Code Upper endoscopy, 2003, 2008, GERD Denies [place],DM,CVA,Lung disease,renal dise ase Surgical History Surgery Date(Month/Year) cyst removal
--- OUTSIDE RECORDS SUMMARY | 2024-09-24 12:55 | XMS_ITS | Clinical Summary ---
Author Organization [employer] Address [address] [place] [address] Care Team Providers [facility] Name Role Phone Claire Emanuel MD Primary Care Provider [phone] Allergies No known active allergies Medications cyclobenzaprine [...] recommended reduction of 20-30% of maintenance calories; regional forester referral offered. Recommended to decrease soda and sugary beverage consumption. Recommended at least 20 g per meal of protein to assist with satiety. Recommended at least 150 min/week of moderate intensity exercise. Assessment & Plan (03/12/2023 4:02 PM EST): Discussed calorie deficit, recommended reduction of 20-30% of maintenance calories; regional forester referral offered. Recommended to decrease soda and [...] of Seborrheic Keratosis will be referred to [facility] Derm Skin. In addition, patient [...] Encounters Date Type Department Care Team Description 09/20/2024 Telephone [facility] [address] [place] [address] Claire Emanuel MD Nurse Triage 08/19/2024 Results Follow-Up [facility] [address] [place] [address] Claire Emanuel MD XR Lumbar Spine Complete 4+ Views, Testosterone, Free (Dialysis) And Total, MS, Comprehensive Metabolic Panel, Additional followed-up results: 9 08/02/2024 3:45 PM EDT Office Visit [facility] [address] [place] [phone] Claire Emanuel MD Low back pain at multiple sites (Primary Dx); Lower urinary tract symptoms; Polyarthralgia 08/02/2024 Travel 07/30/2024 Telephone [facility] [address] [place], [place] [phone] Claire Emanuel MD Chart Prep 07/22/[address] [facility] [address] [place], [place] [phone] Claire Emanuel MD Pre-visit Planning (SDOH screening negative and Tobacco screening negative) 07/05/2024 2:30 PM EDT Office Visit [facility] [address] [place], [place] [phone] Tristin Erickson MD Acute midline low back pain, unspecified whether sciatica present (Primary Dx) 07/05/2024 Travel 07/05/[address] [facility] [address] [place], [place] [phone] Claire Emanuel MD Nurse Triage from Last [...] is your housing situation today? I have wjkym bridges 12/10/[address] you [...] Alcohol/Substance Use Screening 12/17/2024 12/18/2023 COVID-19 Vaccine (4 - season) 2024 03/05/2021, 08/02/2020, 07/05/2020 Postponed from 10/19/2023 (Patient Refused) Zoster Vaccines (1 of 2) 12/17/2024 Pos tponed from 2015 (Patient Refused) SDOH Screening 07/22/2025 07/22/2024 Pneumococcal Vaccine: 50+ Years (1 of 1 - PCV) 08/02/2025 Postponed from 2015 (Patient Refused) Tobacco Screening 08/03/2025 08/03/2024 Diabetes: Hemoglobin A1C 08/23/2025 025, 12/15/2021, 12/09/2020 DTaP/Tdap/Td Vaccines (2 - Td or Tdap) 10/23/2025 10/24/2015 Colorectal Cancer Screening 12/31/2025 FIT DNA/Cologuard 12/31/2025 12/31/2022 Lipid Panel 08/23/2029 08/23/2024, 1103/2023, 03/15/2023, Additional history exists RSV Patients and Patients Aged 60 years or older (1 - 1-dose 75+ series) 2040 HIV Screening Completed 12/20/2023 Hepatitis C Screening Completed 08/23/2024, 023 HIB Vaccines Aged Out No longer eligi [...] Procedure Name Priority Date/Time Associated Diagnosis Comments AMB REFERRAL TO PHYSICAL THERAPY Routine 09/07/2024 Low back pain at multiple sites HEPATITIS B SURFACE ANTIBODY, QUALITATIVE Routine 08/23/2024 4:35 PM EDT Transaminitis HEPATITIS B CORE AB TOTAL Routine 08/23/2024 4:35 PM EDT Transaminitis HEPATITIS B SURFACE ANTIGEN, EIA Routine 08/23/2024 4:35 PM EDT Transaminitis HEPATITIS C AB W/REFL TO HCV RNA, QN, PCR Routine 08/23/2024 4:35 PM EDT Transaminitis FERRITIN Routine 08/23/2024 4:35 PM EDT Transaminitis IRON AND TOTAL IRON BINDING CAPACITY Routine 08/23/2024 4:35 PM EDT Transaminitis HEMOGLOBIN A1C Routine 08/23/2024 4:35 PM EDT Transaminitis APTT Routine 08/23/2024 4:35 PM EDT Transaminitis PROTHROMBIN TIME-INR Routine 08/23/2024 4:35 PM EDT Transaminitis LIPID PANEL, STANDARD Routine 08/23/2024 4:35 PM EDT Transaminitis HEPATITIS A IGM ANTIBODY Routine 08/23/2024 4:35 PM EDT Transaminitis HEPATITIS A ANTIBODY, TOTAL Routine 08/23/2024 4:35 PM EDT Transaminitis XR LUMBAR SPINE COMPLETE 4+ VIEWS Routine [...] 12/20/2023 9:03 AM EDT Annual physical exam LAB COLOGUARD COLON CANCER SCREEN Routine 12/31/2022 7:39 PM EST Colon cancer screening PROPHYLAXIS - ADULT Routine 01/21/2022 4 :00 PM EST Encounter for dental examination from Last 3 Months or Most Recently Relevant to Health Maintenance Results * Referral to Physical Therapy (09/07/2024) us Claire Emanuel MD OUTPATIENT REFERRAL ORDERABLE S Final Result * Hepatitis C Antibody with Reflex to HCV, RNA, Quantitative, Real-Time PCR (08/23/2024 4:35 PM EDT) [facility] Hepatitis C Antibody Nonreactive Nonreactive [facility] Comment:Antibodies to HCV no t detected; does not exclude early acuteHCV infection. Blood Venous blood specimen / Unknown 08/23/2024 4:35 PM EDT 08/23/2024 4:36 PM EDT Claire Emanuel MD LAB BLOOD ORDERABLES Final Re sult Performing Organization Address [facility] de Phone Number [facility] [address] [place] [phone] * Iron And Total Iron Binding Capacity (08/23/2024 4:35 PM EDT) [facility] Iron 52 45 - 160 mcg/dL [facility] Total Iron Binding Capacity 268 228 - 428 mcg/dL [facility] Percent Iron Saturation 19 15 - 50 % [facility] Unsaturated Iron Binding 216 ug/dL [facility] Blood Venous blood specimen / Unknown 08/23/2024 4:35 PM EDT 08/23/2024 4:36 PM EDT Claire Emanuel MD LAB BLOOD ORDERABLES Final Re sult Performing Organization Address [facility] Co de Phone Number [facility] [address] [place] [phone] * Hepatitis A IgM Antibody (08/23/2024 4:35 PM EDT) [facility] Hepatitis A IgM Nonreactive Nonreactive [facility] Comment:IgM antibodies to ALFARO V not detected; does not exclude earlyacute or recovered HAV infection. Blood Venous blood specimen / Unknown 08/23/2024 4:35 PM EDT 08/23/2024 4:36 PM EDT Claire Emanuel MD LAB BLOOD ORDERABLES Final Re sult Performing Organization Address [facility] Co de Phone Number [facility] [address] [place] [phone] * Hepatitis A Antibody, Total (08/23/2024 4:35 PM EDT) Hepatitis A Antibody IgG REACTIVE Nonreactive [facility] Comment:The presence of IgG anti-HAV implies past HAV infection(recent or distant) or vaccination against HAV. Blood Venous blood specimen / Unknown 08/23/2024 4:35 PM EDT 08/23/2024 4:36 PM EDT Claire Emanuel MD LAB BLOOD ORDERABLES Final Re sult Performing Organization Address [facility] de Phone Number [facility] [address] [place] [phone] * Hepatitis B surface antigen, EIA (08/23/2024 4:35 PM EDT) Hepatitis B Surface Ag Negative Negative [facility] Blood Venous blood specimen / Unknown 08/23/2024 4:35 PM EDT 08/23/2024 4:36 PM EDT Claire Emanuel MD LAB BLOOD ORDERABLES Final Re sult Performing Organization Address [facility] Co de Phone Number [facility] [address] [place] [phone] * Hepatitis B Core Antibody, Total (08/23/2024 4:35 PM EDT) Hepatitis B Core Antibody Nonreactive Nonreactive [facility] Blood Venous blood specimen / Unknown 08/23/2024 4:35 PM EDT 08/23/2024 4:36 PM EDT Claire Emanuel MD LAB BLOOD ORDERABLES Final Re sult Performing Organization Address [facility] de Phone Number [facility] [address] [place] [phone] * Hepatitis B Surface Antibody, Qualitative (08/23/2024 4:35 PM EDT) ~Hepatitis B Surface Antibody NONREACTIVE Nonreactive [facility] Comment:Nonreactive: < 8.00 mIU/mL Blood Venous blood specimen / Unknown 08/23/2024 4:35 PM EDT 08/23/2024 4:36 PM EDT Claire Emanuel MD LAB BLOOD ORDERABLES Final Re sult Performing Organization Address [facility] de Phone Number [facility] [address] [place] [phone] * Partial Thromboplastin Time, Activated (APTT) (08/23/2024 4:35 PM EDT) Partial Thromboplastin Time 30.2 26.0 - 36.8 SEC [facility] Comment:For information rega rding the monitoring of direct thrombininhibitors, please refer to Pharmacy. Blood Venous blood specimen / Unknown 08/23/2024 4:35 PM EDT 08/23/2024 4:36 PM EDT Claire Emanuel MD LAB BLOOD ORDERABLES Final Re sult Performing Organization Address [facility] Co de Phone Number [facility] [address] [place] [phone] * Prothrombin Time-INR (08/23/2024 4:35 PM EDT) Prothrombin Time 11.4 10.9 - 12.4 SEC [facility] INTERNATIONAL NORM RATIO 1.0 0.9 - 1.1 [facility] Comment:INTERNATIONAL NORMAL IZED RATIO (INR) REFERENCE RANGES Reference RangeFor patients not on anticoagulant therapy: 0.9 - 1.1INR ranges for oral anticoagulanttherapy:For prevention and treatment of venous thrombosis and pulmonary embolism: 2.0 - 3.0For acute myocardial infarction with aspirin therapy: 2.0 - 3.0For acute myocardial infarction without aspirin therapy: 3.0 - 4.0For patients with mechanical prosthetic heart valves: 2.5 - 3.5 Blood Venous blood specimen / Unknown 08/23/2024 4:35 PM EDT 08/23/2024 4:36 PM EDT Claire Emanuel MD LAB BLOOD ORDERABLES Final Re sult Performing Organization Address [facility] Co de Phone Number [facility] [address] [place] [phone] * (ABNORMAL) Hemoglobin A1c (08/23/2024 4:35 PM EDT) Hemoglobin A1c 6.2(H) <6.0 % [facility] Comment:Hemoglobin A1C Refer ence Range Adults: 4.8 - 6.0 % Non diabetic: < 6.0 % Goal: < 7.0 %Additional Action Suggested: > 8.0 %Note: Hemoglobin A1c results are invalid for patients with abnormal amounts of HbF. Blood transfusions may impact the HbA1c concentration in the patient sample. Estimated Average Glucose 131 mg/dL [facility] Comment:eAG = Estimated ave rage glucose which is %A1C expressed asaverage glucose, using the formula of the L3D-TvhgnhiXiicept Glucose study (ADAG), Diabetes Care, Vol.31,#8,Sep. 2007 Blood Venous blood specimen / Unknown 08/23/2024 4:35 PM EDT 08/23/2024 4:36 PM EDT Claire Emanuel MD LAB BLOOD ORDERABLES Final Re sult Performing Organization Address [facility]/ZIP Co de Phone Number [facility] [address] [place] [phone] * Ferritin (08/23/2024 4:35 PM EDT) Ferritin 239 20 - 250 ng/mL [facility] Blood Venous blood specimen / Unknown 08/23/2024 4:35 PM EDT 08/23/2024 4:36 PM EDT Claire Emanuel MD LAB BLOOD ORDERABLES Final Re sult Performing Organization Address City/[facility]/ZIP Co de Phone Number [facility] [address] [place] [phone] * Lipid Panel, Standard (08/23/2024 4:35 PM EDT) Triglycerides 44 <150 mg/dL [facility] Comment:Desirable Triglyceri de: less than 150 mg/dLBorderline High Triglyceride 150-199 mg/dLHigh Triglyceride: 200-499 mg/dLVery High Triglyceride: greater than or equal to 5OO mg/dL Cholesterol 106 <200 mg/dL [facility] Comment:Desirable Cholestero l: less than 200 mg/dLBorderline High Cholesterol: 200-239 mg/dLHigh Cholesterol: greater than 239 mg/dL LDL Cholesterol Calculated 54 <100 mg/dL [facility] Comment:Desirable LDL: less than 100 mg/dLNear Optimal/Above Optimal LDL: 110- 129 mg/dLBorderline High LDL: 130-159 mg/dLHigh LDL: 160-189 mg/dLVery High LDL: greater than or equal to 190 mg/dL HDL Cholesterol 44 >40 mg/dL [facility] Comment:Desirable HDL: great er than 40 mg/dL Note: This HDL assay may give artificially low results in patients with liver disease. Blood Venous blood specimen / Unknown 08/23/2024 4:35 PM EDT 08/23/2024 4:36 PM EDT Claire Emanuel MD LAB BLOOD ORDERABLES Final Re sult Performing Organization Address City/[facility]/ZIP Co de Phone Number [facility] [address] [place] [phone] * XR Lumbar Spine Complete 4+ Views (08/12/2024 4:12 PM EDT) Anatomical Region Laterality Modality Spine, L-spine Radiographic Tanehsa ging 08/12/2024 4:12 PM EDT Narrative 08/13/2024 7:28 AM EDT [address] [address] XRay Report Signed Patient: Cali Juan MR#: [id number] 49 : 1965 Acct:[id number] Age/Sex: 59 / M ADM Date: 08/12/24 Loc: HO.LAB Attending Dr: Claire Emanuel MD Ordering Physician: Claire Emanuel MD Date of Service: 08/12/24 Procedure(s): XR lumbar spine 4V min Accession Number(s): [id number] cc: Claire Emanuel MD EXAMINATION: Lumbar spine [...] 08/13/24 0725 DD/ 1612 TD/TT: 08/12/24 1622 Rehabilitation Medicine Physician: [facility] Procedure Note Donotuseinterpreter, Image - 08/13/[address] [address] XRay Report Signed Patient: Cali Juan AMR#: [id number] 49 : 1965Acct:[id number] Age/Sex: 59 / MADM Date: 08/12/24 Loc: HO.LAB Attending Dr: Claire Emanuel MD Ordering Physician: Claire Emanuel MD Date of Service: 08/12/24 Procedure(s): XR lumbar spine 4V min Accession Number(s): [id number] cc: Claire Emanuel MD EXAMINATION: Lumbar spine [...] 08/13/24 0725 DD/ 1612 TD/TT: 08/12/24 1622 Rehabilitation Medicine Physician: [facility] Claire Emanuel MD IMG XR PROCEDURES Final Resul t * PSA, Total With Reflex to PSA, Free (08/12/2024 3:52 PM EDT) PSA,Total (Free>4and<10) 2.85 0.00 - 4.00 ng/mL [facility] Comment:A Free PSA was not p [...] MD LAB BLOOD ORDERABLES Final Re sult [facility] [address] [place], [place] [phone] * (ABNORMAL) CBC auto differential (08/12/2024 3:52 PM EDT) White Blood Count 7.4 4.8 - 10.8 X10*3/uL [facility] Red Blood Count 5.30 4.60 - 5.80 X10*6/uL [facility] Hemoglobin 14.0 14.0 - 18.0 g/dl [facility] Hematocrit 43.7 42.0 - 52.0 % [facility] Mean Corpuscular Volume 82.5 80.0 - 98.0 fL [facility] Mean Corpuscular Hemoglobin 26.4(L) 27.0 - 33.0 pg [facility] Mean Corpuscular HGB Conc 32.0 31.0 - 36.0 g/dl [facility] Red Cell Distribution Width 14.6 11.0 - 16.0 % [facility] Platelet Count 358 160 - 400 X10*3/uL [facility] Mean Platelet Volume 10.4 9.4 - 12.4 fL [facility] Neutrophils Percent Auto 54.5 45 - 73 % [facility] Imm Gran Pct Auto 0.3 0.0 - 0.4 % [facility] Lymphocytes Percent Auto 31.3 20 - 40 % [facility] Monocytes Percent Auto 9.9 2 - 11 % [facility] Eosinophils Percent Auto 3.3 0 - 4 % [facility] Basophils Percent Auto 0.7 0 - 2 % [facility] NRBC Pct Auto 0.0 0.0 - 0.2 /100WBC [facility] Neutrophils Absolute Auto 4.0 2.0 - 8.3 x10*3/uL [facility] Imm Gran Abs Auto 0.02 0.00 - 0.03 X10*3/uL [facility] Lymphocytes Absolute Auto 2.3 1.2 - 4.9 X10*3/uL [facility] Monocytes Absolute Auto 0.7 0.1 - 1.2 X10*3/uL [facility] Eosinophils Absolute Auto 0.2 0.0 - 0.4 X10*3/uL [facility] Basophils Absolute Auto 0.1 0.0 - 0.2 X10*3/uL [facility] NRBC Abs Auto 0.000 0.0 - 0.012 X10*3/uL [facility] Blood Venous blood specimen / Unknown 08/12/2024 3:52 PM EDT 08/12/2024 3:53 PM EDT Claire Emanuel MD LAB BLOOD ORDERABLES Final Re sult Performing Organization Address [facility] Co de Phone Number [facility] [address] [place] [phone] * Cyclic Citrullinated Peptide (CCP) Antibody (IgG) (08/12/2024 3:52 PM EDT) Pathologist [facility] Cyclic Citrullinated Peptide <16 UNITS [facility] Comment:Reference RangeNegat raisa: <20Weak Positive: 20-39Moderate Positive: 40-59Strong Positive: >59THIS TEST WAS PERFORMED AT:[employer] [address] [id number] MURILLO MD Blood Venous blood specimen / Unknown 08/12/2024 3:52 PM EDT 08/12/2024 3:53 PM EDT Claire Emanuel MD LAB BLOOD ORDERABLES Final Re sult Performing Organization Address [facility]/ZIP Co de Phone Number [facility] [address] [place] [address] [phone] * Sed Rate by Heriberto Cedeño (08/12/2024 3:52 PM EDT) Erythrocyte Sedimentation Rate 8 0 - 15 MM/HR [facility] Comment:Patients with polycy themia and many hemoglobin abnormalitiesmay have depressed sed rates whereas patients with anemiamay have elevated sed rates. Blood Venous blood specimen / Unknown 08/12/2024 3:52 PM EDT 08/12/2024 3:53 PM EDT Claire Emanuel MD LAB BLOOD ORDERABLES Final Re sult Performing Organization Address [facility]/ZIP Co de Phone Number [facility] [address] [place] [phone] * (ABNORMAL) Rheumatoid Factor (08/12/2024 3:52 PM EDT) Rheumatoid Factor 24.4(H) <15.0 IU/mL [facility] Blood Venous blood specimen / Unknown 08/12/2024 3:52 PM EDT 08/12/2024 3:53 PM EDT Claire Emanuel MD LAB BLOOD ORDERABLES Final Re sult Performing Organization Address [facility] Co de Phone Number [facility] [address] [place] [phone] * (ABNORMAL) Testosterone, Free (Dialysis) And Total, MS (08/12/2024 3:52 PM EDT) Testosterone, Total 159(A) 250 - 1100 ng/dL [facility] Comment:For additional infor keaton, please refer tohttp://education.[employer].Gobbler/faq/TptkuPaowslpcknxqPCWUDXAOZ453(This link is being provided for informational/educational purposes only.)This test was developed and its analytical performancecharacteristics have been determined by [employer] [facility] [place], [place]. It hasnot been cleared or approved by the U.S. Food and DrugAdministration. This assay has been validated pursuantto the CLIA regulations and is used for clinicalpurposes. Testosterone, Free 29.1(A) 35.0 - 155.0 pg/mL [facility] Comment:This test was develo ped and its analytical performancecharacteristics have been determined by [employer] [place], [place]. It hasnot been cleared or approved by the U.S. Food and DrugAdministration. This assay has been validated pursuantto the CLIA regulations and is used for clinicalpurposes.THIS TEST WAS PERFORMED AT:[employer]/[facility] [place] [address]UPASHPLWANG PICKARD MD,PHD Blood Venous blood specimen / Unknown 08/12/2024 3:52 PM EDT 08/12/2024 3:53 PM EDT Claire Emanuel MD LAB BLOOD ORDERABLES Final Re sult Performing Organization Address [facility] Co de Phone Number [facility] [address] [place] [phone] * (ABNORMAL) C-reactive Protein (08/12/2024 3:52 PM EDT) C Reactive Protein 1.97(H) < or = 0.50 mg/dL [facility] Blood Venous blood specimen / Unknown 08/12/2024 3:52 PM EDT 08/12/2024 3:53 PM EDT Claire Emanuel MD LAB BLOOD ORDERABLES Final Re sult Performing Organization Address [facility] de Phone Number [facility] [address] [place] [phone] * BETHANY Screen,IFA, with Reflex to Titer and Pattern (08/12/2024 3:52 PM EDT) Anti Nuclear Antibody Screen NEGATIVE NEGATIVE [facility] Comment:BETHANY IFA is a first l [...] clinicallysuspected inflammatory myopathies.AC-0: NegativeInternational Consensus on BETHANY Patterns(https://doi.org/10.1515/jept-7600-5494)For additional information, please refer tohttp://education.WeGreek/faq/IGG597(This link is being provided for informational/educational purposes only.)THIS TEST WAS PERFORMED AT:[employer] [place] [id number] MURILLO MD BETHANY Titer TNP [facility] BETHANY Pattern TNP [facility] BETHANY TITER 2 (REF LAB) [facility] 2 [facility] TITER 3 [facility] PATTERN 3 [facility] Blood Venous blood specimen / Unknown 08/12/2024 3:52 PM EDT 08/12/2024 3:53 PM EDT Claire Emanuel MD LAB BLOOD ORDERABLES Final Re sult Performing Organization Address [facility]/ZIP Co de Phone Number [facility] [address] [place] [phone] * Uric acid (08/12/2024 3:52 PM EDT) Uric Acid 5.3 3.4 - 7.0 mg/dL [facility] Blood Venous blood specimen / Unknown 08/12/2024 3:52 PM EDT 08/12/2024 3:53 PM EDT Claire Emanuel MD LAB BLOOD ORDERABLES Final Re sult Performing Organization Address [facility]/ZIP Co de Phone Number [facility] [address] [place] [phone] * (ABNORMAL) Comprehensive Metabolic Panel (08/12/2024 3:52 PM EDT) Sodium 142 135 - 145 mmol/L [facility] Potassium 3.9 3.3 - 5.1 mmol/L [facility] Chloride 109(H) 96 - 108 mmol/L [facility] Carbon Dioxide 25 22 - 29 mmol/L [facility] Anion Gap 12 12 - 20 [facility] Urea Nitrogen (BUN) 12 9 - 16 mg/dL [facility] Creatinine, Serum 0.75 0.5 - 1.4 mg/dL [facility] Estimated Glomerular Filt Rate >60 [facility] Comment:Chronic Kidney Disea se: Estimated GFR < 60 mL/min/1.90b8Hrgiqh Kidney Disease: Estimated GFR < 15 mL/min/1.73m2 Glucose 88 60 - 115 mg/dL [facility] Calcium 9.8 8.4 - 10.2 mg/dL [facility] Bilirubin, Total 0.8 0.0 - 1.0 mg/dL [facility] Aspartate Amino Transferase 28 5 - 37 U/L [facility] Alanine Aminotransferase 48(H) 0 - 40 U/L [facility] Total Protein 7.3 6.5 - 8.0 g/dL [facility] Albumin Level 4.3 3.5 - 5.0 g/dL [facility] Alkaline Phosphatase 70 39 - 117 U/L [facility] Blood Venous blood specimen / Unknown 08/12/2024 3:52 PM EDT 08/12/2024 3:53 PM EDT us Claire Emanuel MD LAB BLOOD ORDERABLES Final Re sult [facility] [address] [place] [phone] * Urinalysis, Complete, with Reflex to Culture (08/12/2024 3:45 PM EDT) Color Urine Dark Yellow [facility] Appearance Urine Clear [facility] PH 5.5 5.0 - 9.0 [facility] Glucose Urine UA Negative Negative mg/dL [facility] Urine Blood Negative Negative [facility] Specific [place] - Urine 1.025 1.005 - 1.025 [facility] Urine Protein Negative Neg-Trace mg/dL [facility] Urine Ketones Trace Negative mg/dL [facility] Nitrite Urine Negative Negative [facility] Leukocyte Esterase Urine Negative Negative [facility] RBC Urine 0-2 0 - 2 /HPF [facility] Urine WBC 0-5 0 - 5 /HPF [facility] Urine Squamous Epithelial Cell 0-2 0 - 2 /HPF [facility] Urine Bacteria None Seen None Seen [facility] Hyaline Casts, Urine 0-2 0 - 2 /LPF [facility] Urine Urine specimen obtained by clean catch procedure / Unknown 08/12/2024 3:45 PM EDT 08/12/2024 4:14 PM EDT Narrative [facility] - 08/12/2024 5:05 PM EDT [id number], Clean Catch us Claire Emanuel MD LAB URINE ORDERABLES Final Re sult [facility] [address] [place] [address] [phone] * HIV-1/2 Antigen and Antibodies, Fourth Generation, with Reflexes (12/20/2023 9:03 AM EDT) HIV AB/AG Nonreactive Nonreactive [facility] Comment:HIV-1 p24 Ag and/or HIV-1/HIV-2 Ab not detected.A test result that is nonreactive does not exclude thepossibility of exposure to or infection with HIV-1 and/orHIV-2. Nonreactive results in this assay for individualswith prior exposure to HIV-1 and/or HIV-2 may be due toantigen and antibody levels that are below the limit ofdetection of this assay.The [place] HIV Ag/Ab Combo assay result andsupplemental assay results should be interpreted inconjunction with the patient's clinical presentation,history and other laboratory results. If the results areinconsistent with clinical evidence, additional testing issuggested to confirm the result. Blood Venous blood specimen / Unknown 12/20/2023 9:03 AM EDT 12/20/2023 9:03 AM EDT us Claire Emanuel MD LAB BLOOD ORDERABLES Final Re sult [facility] [address] [place] [phone] * Cologuard?? colon cancer screening (12/31/2022 7:39 PM EST) Cologuard Result Negative Negative 01/11/20 11:29 PM EST [facility] (CLIA #:[id number]) Comment: NEGATIVE TEST RESULT. A negative Cologuard [...] (Daniel Otto al, N Engl J Med 2014;370(14):9933-8989) The normal value (reference range) for this assay is negative. COLOGUARD RE-SCREENING RECOMMENDATION: Periodic colorectal cancer screening is an important part of preventive healthcare for asymptomatic individuals at average risk for colorectal cancer. Following a negative Cologuard result, the [place] Cancer Society and U.S. Multi-Society Task Force screening guidelines recommend a Cologuard re-screening interval of 3 years. References: [place] Cancer Society Guideline for Colorectal Cancer Screening: https://www.cancer.org/cancer/ruifa-xmeaed-fspdzf/ovzmrtcgq-ezxgtrryd-txqpivx/ac s-rec ommendations.html.; Thomas DK, Carley CR, Arlyn WatkinsK, Colorectal Cancer Screening: Recommendations for Physicians and Patients from the U.S. Multi-Society Task Force on Colorectal Cancer Screening , Am J Gastroenterology 2017; 112:6774-2191. TEST DESCRIPTION: Composite algorithmic analysis of stool [...] (Daniel Otto al, N Engl J Med 2014;370(14):0119-4191.) Cologuard may produce a false negative or false positive result (no colorectal cancer or precancerous polyp present at colonoscopy follow up). A negative Cologuard test result does not guarantee the absence of CRC or advanced adenoma (pre-cancer). The current Cologuard screening interval is every 3 years. ([place] Cancer Society and U.S. Multi-Society Task Force). Cologuard performance data in a 10,000 patient pivotal study using colonoscopy as the reference method can be accessed at the following location: www.HelloFax.Gobbler/results. Additional description of the Cologuard test process, warnings and precautions can be found at www.[employer] [place].Gobbler. Stool specimen (specimen) 12/31/2022 7:39 PM EST 01/02/2023 7:19 PM EST us Claire Emanuel MD LAB MOLECULAR DIAGNOSTICS ORD ERABLES Final Result [facility] (CLIA #:[id number]) [place] [address], [place] [phone] from Last 3 Months or Most Recently Relevant to Health Maintenance Insurance , [address] [place] [address] DENTAL - [employer] Care Teams [employer] Relationship Specialty Start Date End Date Claire Emanuel MD [address] [place] [phone] PCP - General Family Medicine 11/10/20
--- OUTSIDE RECORDS SUMMARY | 2024-09-24 12:55 | XMS_ITS | Clinical Summary ---
Author Organization [address] Address [address] [place] [address] Phone Care Team Providers Care Rag Sorter Name Role Phone Pratibha Hoover MD Primary Care Provider + [phone] Encounters Date Type Department Care Team Description 09/07/2024 3:30 PM EDT Evaluation Outpatient Rehabilitation [address] [phone] Cornelius Lechuga, PT Chronic low back pain, unspecified back pain laterality, unspecified whether sciatica present (Primary Dx); Low back pain, unspecified from Last 3 Months Surgical History Surgery Date Site/Laterality Comments COLONOSCOPY 2013 PROCEDURE: HISTORICAL COLONOSCOPY ESOPHAGOGASTRODUODENOSCOPY PROCEDURE: [place] ESOPHAGOGASTRODUODENOSCOPY TRANSORAL DIAGNOSTIC Medical History Medical History [...] on file Obstetrics History Plan of Treatment Health Maintenance Due Date Last Done Comments Hepatitis B Vaccines (1 of 3 - 19+ 3-dose series) 1984 Pneumococcal Vaccine: 50+ Years (1 of 1 - PCV) 2015 Zoster Vaccines (1 of 2) 2015 COVID-19 Vaccine (4 - 2023-2 5 season) 2023 03/05/2021, 08/02/2020, 07/05/2020 Depression Screening 02/18/2024 Social Influencers of Health Screening 08/11/2024 Influenza Vaccine (#1) 2024 DTaP,Tdap,and Td Vaccines (2 - Td or Tdap) 10/23/2025 10/24/2015 Colorectal Cancer Screening: FIT-DNA (Cologuard) 12/31/2025 12/31/2022 Cholesterol Screening (Lipid Panel) 08/23/2029 08/23/2024 RSV Immunization Adult Patients (1 - 1-dose 75+ series) 2040 HIV Screening Completed 12/20/2023 Hepatitis C Screening Completed 08/23/2024 HIB Vaccines Aged Out No longer eligi [...] to complete this topic RSV Immunization Patients Under 20 months Aged Out No longer eligible b ased on patient's age to complete this topic Varicella Vaccines Aged Out No longer eligible based on patient's age to complete this topic [place] [address] Care Teams Rag Sorter Relationship Specialty Start Date End Date Pratibha Hoover MD [address] [place] [phone] PCP - General Internal Medicine 07/07/17
== END 2024-09-24 12:54 | disposition home or self-care (01) ==
LOC: HO.US 12:53
PROVIDERS: PCP Family Medicine; Visit Provider Family Medicine
DX: R74.01 Elevation of levels of liver transaminase levels (principal)
CPT/HCPCS: 76700; 76981

== ENCOUNTER → 2024-09-24 12:55 | Outpatient (BNV) | payer OTHER, SELFPAY | PROVIDERS: PCP Family Medicine; Visit Provider Radiology Diagnostic Radiology | DX: R16.0 Hepatomegaly, not elsewhere classified (principal) | CPT/HCPCS: 76700 ==

== ENCOUNTER 2024-11-08 15:45 | Outpatient (REF) | payer OTHER, SELFPAY ==
--- OUTSIDE RECORDS SUMMARY | 2024-11-08 17:59 | XMS_ITS ---
Encounter Summary Created on: November 08, 2024 Cali Juan
[2024-11-09 08:51] LABS: Chlamydia pneumoniae PCR Not Detected (Not Detect.); Coronavirus 229E PCR Not Detected (Not Detect.); Coronavirus HKU1 PCR Not Detected (Not Detect.); Coronavirus NL63 PCR Not Detected (Not Detect.); Coronavirus OC43 PCR Not Detected (Not Detect.); RSV PCR Not Detected (Not Detect.); Rhino/Enterovirus PCR Detected (Not Detect.)
[2024-11-09 09:39] LABS: Influenza A H1 PCR Not Detected (Not Detect.); Influenza A H1-2009 PCR Not Detected (Not Detect.); Influenza A H3 PCR Not Detected (Not Detect.); SARS-CoV-2 PCR Not Detected (Not Detect.)
== END 2024-11-08 15:46 | disposition home or self-care (01) ==
LOC: HO.CHCLNP 15:45
PROVIDERS: PCP Registered Nurse; Visit Provider Registered Nurse
DX: R05.9 Cough, unspecified (principal)
CPT/HCPCS: 87633

== ENCOUNTER → 2024-11-24 09:48 | Outpatient (BNVA) | payer OTHER, SELFPAY | PROVIDERS: PCP Registered Nurse; Visit Provider Emergency Medicine | DX: M77.11 Lateral epicondylitis, right elbow (principal) | CPT/HCPCS: 73080; 99204 ==

== ENCOUNTER → 2024-12-08 07:54 | Outpatient (BNVA) | payer OTHER, SELFPAY | PROVIDERS: PCP Family Medicine; Visit Provider Emergency Medicine | DX: M77.11 Lateral epicondylitis, right elbow (principal) | CPT/HCPCS: 99213 ==

== ENCOUNTER → 2024-12-22 08:04 | Outpatient (BNVA) | payer OTHER, SELFPAY | PROVIDERS: PCP Family Medicine; Visit Provider Emergency Medicine | DX: M77.11 Lateral epicondylitis, right elbow (principal) | CPT/HCPCS: 99213 ==

== ENCOUNTER → 2025-01-11 07:46 | Outpatient (BNVA) | payer OTHER, SELFPAY | PROVIDERS: Visit Provider Emergency Medicine | DX: S56.511D Strain of other extensor muscle, fascia and tendon at forearm level, right arm, subsequent encounter (principal); X50.3XXD Overexertion from repetitive movements, subsequent encounter; M77.11 Lateral epicondylitis, right elbow | CPT/HCPCS: 99214 ==

== ENCOUNTER 2025-01-25 08:21 | Outpatient (AMB) | payer OTHER, SELFPAY ==
[2025-01-25 08:27] VITALS: BMI 32.9
--- NOTE | 2025-01-25 08:27 | MHC.OFFVIS ---
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 Patient reports he works for [employer] and thinks he injured himself while lifting heavy trash barrels. Per [facility] referral, patient has noted improvement with physical therapy. However, he continues having pain on the lateral aspect of the right elbow radiating to the radial aspect of the right wrist. He explains his pain worsens when he lifts, radiating to the right shoulder. He denies numbness and tingling. He also complains of left middle finger pain, primarily when bending, causing a pulling sensation on the lateral aspect of his elbow. He denies previous injuries or surgeries to the right upper extremity. A Right Elbow MRI was done a [facility] on 01/06/25 showin. Common extensor tendon origin partial tearing is boderline high-grade. 2. Radial fhead focal chondrosis. Allergies No Known Allergies Allergy (Verified 01/25/25 08:28) HPI HPI SAMPLE SAWYER: Right elbow WC injury, DOI 11/24/24: Details: Cali is a 59 year old right hand dominant male who presents today as a New Patient for evaluation of Right Elbow Pain, WC DOI: 11/24/24. Patient reports he works for [employer] and thinks he injured himself while lifting heavy trash barrels. Per [facility] referral, patient has noted improvement with physical therapy. However, he continues having pain on the lateral aspect of the right elbow radiating to the radial aspect of the right wrist. He explains his pain worsens when he lifts, radiating to the right shoulder and down to the right forearm and wrist. He denies numbness and tingling. He also complains of left middle finger pain, primarily when bending, causing a pulling sensation on the lateral aspect of his elbow. He denies previous injuries or surgeries to the right upper extremity. A Right Elbow MRI was done a [facility] on 01/06/25 showin. Common extensor tendon origin partial tearing is boderline high-grade. 2. Radial fhead focal chondrosis. [facility] Medical History Lipoma Surgical History H/O colonoscopy H/O esophagogastroduodenoscopy Social History Alcohol intake: former Comment: quit more than 20 years ago Patient Tobacco Use Status: Former Tobacco user Review of Systems Const All systems reviewed & are unremarkable except as noted in HPI and below Physical Exam Vital Signs: BMI result Body Mass Index 32.9 Extrem Other: Patient is alert, oriented, and in no acute distress. Neuro: Normal sensation of the tips of all digits of the right hand at this time Vascular: Cap refill brisk Pain: Tenderness to palpation of right lateral epicondyle Positive Cozen's test in the right ROM: Range of motion of the right elbow full and intact Skin: No lacerations or abrasions. General: No ecchymosis, erythema, or evidence of infection. Psych: Appears grossly normal Affect normal Attitude cooperative Office Procedures AMB Tendon Injection Tendon Injection [id number] Tendon Sheath Injection All charges added?: Procedure code (CPT) selection complete Assessment & Plan Assessment & Plan (1) Partial tear of radial collateral ligament of elbow: Code(s): S53.20XA - Traumatic rupture of unspecified radial collateral ligament, initial encounter Category: Medical (2) Right lateral epicondylitis: Code(s): M77.11 - Lateral epicondylitis, right elbow Category: Medical Plan 1. Partial tear of radial collateral ligament of right elbow 2. Right lateral epicondylitis Date of injury 11/24/2024 The risks and benefits of a steroid injection including but not limited to risk of damage to blood vessels, nerves, tendons, infection, skin bleaching, failure to improve symptoms, increased pain, and possible need for further injections or other intervention were discussed with the patient and the patient wishes to proceed with the steroid injection. Once consent was obtained, I sterilely prepped the area over the lateral epicondyle of the right elbow. I then injected the area over the lateral epicondyle with a combination of 40 mg of dexamethasone and 1 mL of 1% lidocaine. The patient tolerated the procedure well with no complications. If the patient continues to experience symptoms over the next 4 weeks, they can make an appointment to return and discuss alternative treatment measures, such as physical therapy. Patient should continue with occupational therapy exercises provided to him at previous visits. No heavy lifting for at least the next 2 weeks, and only begin heavy lifting if pain has improved Follow-up in 6 weeks for range of motion and pain check, sooner with any acute concerns Coding Level of Care Code New Pt Level 3 (90283) Diagnoses Partial tear of radial collateral ligament of elbow S53.20XA Right lateral epicondylitis M77.11 CPT Codes Tendon Injection - Tendon Injection 1: [id number] Tendon Sheath Injection ([id number])
== END 2025-01-25 09:25 | disposition home or self-care (01) ==
LOC: HO.HOS 08:22
DX: S53.20XA Traumatic rupture of unspecified radial collateral ligament, initial encounter (principal); M77.11 Lateral epicondylitis, right elbow
CPT/HCPCS: 20550; 99203

== ENCOUNTER → 2025-01-25 08:21 | Outpatient (BNVA) | payer OTHER, SELFPAY | DX: M77.11 Lateral epicondylitis, right elbow (principal); S53.20XD Traumatic rupture of unspecified radial collateral ligament, subsequent encounter; X50.0XXD Overexertion from strenuous movement or load, subsequent encounter | CPT/HCPCS: 20550; 99202; J1100; J2003 ==